=== PATIENT | female | born 1970 | race Caucasian/White ===

== ENCOUNTER 2019-09-22 07:51 | Outpatient (CLI) | payer MEDICAID, SELFPAY ==
--- NOTE | 2019-09-22 08:30 | NMCV_ITS ---
NM MIBI/MIBI Stress/Rest [id number] Phyllis Chopra Age: 48 Gender: F : 1970 Exam Date: 09/22/2019 09:28 Ordering Phys: Milad Chan DO Technologist: CHARLA Miller Exam Location: [facility] Indications: Chest Pain STRESS TEST Please see separate stress test report in [facility] for full findings IMAGE PROTOCOL Rest/Stress 1 Lexiscan Day Radiopharmaceutical Dose (mCi) Administration Site Administered by Rest: Tc-99m 10.4 IV CHARLA Miller Sestamibi Stress:Tc-99m 31.9 IV CHARLA Miller Sestamibi Rest: 22-Sep-2019 Discovery 630 Stress: 22-Sep-2019 Discovery 630 0.4mg Lexiscan. Images obtained in supine and prone position: however there was far to much motion in the images to even correct. 46C chest wall. SPECT RESULTS Technical Quality: Good Raw Data Analysis: Normal, Soft tissue attenuation Image Corrections: No attenuation or motion correction applied Summed Stress Score: 0 Summed Rest Score: 0 Summed Difference Score: 0 PERFUSION FINDINGS SPECT images demonstrate homogeneous tracer distribution throughout the myocardium. FUNCTIONAL RESULTS (calculated via Gated SPECT) Stress Image LV EF (%): 63 Stress EDV (mL):119 TID: 1.07 Stress ESV (mL):44 Rest Image LV EF (%): 63 FUNCTIONAL FINDINGS: There is normal left ventricular systolic function. IMPRESSIONS Myocardial perfusion imaging is normal and low probability for obstructive coronary artery disease. EKG segment will be documented separately. Galileo Blue MD (Electronically Signed) Final Date: 22 September 2019 17:06 S
--- NOTE | 2019-09-22 08:30 | ECG_ITS ---
NAME OF STUDY: LEXISCAN SESTAMIBI STRESS TEST INDICATION: Chest Pain PROCEDURE: At the baseline, the blood pressure was 101/72 mmHg with a heart rate of 72 bpm and oxygen saturation 98%. The electrocardiogram showed sinus rhythm, leftward axis. Low QRS voltage. Nonspecific ST changes. The Lexiscan was infused over a period of 20 seconds. A total of 0.4 milligrams of Lexiscan was infused. The stress phase was continued for a total of 5 minutes. Heart rate at the end of the stress phase was 91 bpm with a blood pressure 113/89 mmHg and oxygen saturation of 97%. The EKG at the peak infusion revealed sinus rhythm with no specific ST-T wave changes. Sestamibi was injected 20 seconds after the Lexiscan infusion. Blood pressure at the end of the recovery phase was 103/72 mmHg, oxygen saturation 97% with a heart rate of 91 beats per minute. CONCLUSION: 1. No significant EKG changes with the LexiScan infusion. 2. No LexiScan induced chest pain or cardiac arrhythmia. 3. Normal blood pressure and heart rate response. 4. Sestamibi/sestamibi perfusion scan pending; see separate report. Electronically Signed On 09-23-2019 9:31:22 TRANSFORMATION SPECIALIST by Shivani Matute M.D. [id number]
[2019-09-22 08:50] VITALS: BMI 37.9
[2019-09-22] MEDS: regadenoson 0.4 Mg/5 ml Syringe IVP (11:03)
[2019-09-22 11:29] VITALS: BP 103/72; PULSE 94
== END 2019-09-22 07:52 | disposition home or self-care (01) ==
LOC: CDL 07:54
PROVIDERS: Family Provider Nurse Practitioner; PCP Nurse Practitioner; Visit Provider Family Medicine
DX: R07.89 Other chest pain (principal)
CPT/HCPCS: 78452; 93017; A9500; J2785

== ENCOUNTER → 2019-09-28 10:01 | Outpatient (BNVA) | payer MEDICAID, SELFPAY | PROVIDERS: Family Provider Nurse Practitioner; PCP Nurse Practitioner; Visit Provider Otolaryngology | DX: J35.01 Chronic tonsillitis (principal); R13.10 Dysphagia, unspecified; F17.210 Nicotine dependence, cigarettes, uncomplicated | CPT/HCPCS: 99214 ==

== ENCOUNTER 2019-10-28 14:33 | Emergency (ER) | payer MEDICAID, SELFPAY ==
[2019-10-28 14:36] VITALS: BP 133/104; PULSE 100; RESP 16; TEMP 36.3; O2SAT 97; BMI 39.0
--- NOTE | 2019-10-28 15:14 | ED_ITS ---
Entered by Ellis Philip, acting as scribe for Milad Chan DO Oct 28, 2019 14:33 HPI - General Adult General: Chief complaint: General Medical Stated complaint: FB IN THROAT Time Seen by Provider: 10/28/19 15:16 History of Present Illness: HPI narrative: 48 yo female presents with FB in throat. Pt states that she has drank water and milk, she was able to get that down but slowly. Pt states that she has nausea but can't vomit. Pt states that she ate a piece of potato and it got stuck. Patient reports she previously had bronchoscopy and EGD done by Dr. Nicole. Reviewing her old chart she did indeed have these done he attempted to do a dilation of the distal esophagus but definitely it appears in the note it was unsuccessful. She has been maintained on a PPI. She did have some erosions her biopsy evidently were negative. She is continue to take the omeprazole she was previously prescribed. She is able to drink and swallow fluids although they feel like they get stuck but she is not actually had any vomiting. She is able to swallow secretions without any difficulty. Denies hematemesis or coffee-ground emesis. MD complaint: FB in throat Associated symptoms: Reports nausea; Deny chest pain, dyspnea, malaise, rash or vomiting Review of Systems Const: Denies: fever, chills, body aches, change in appetite, fatigue or malaise ENMT: Reports: throat pain and painful swallowing; Denies: ear pain, nasal discharge or nasal congestion Card: Denies: chest pain, edema, shortness of breath on exertion or shortness of breath when lying down Resp: Denies: shortness of breath, productive cough or non-productive cough GI: Reports: nausea; Denies: abdominal pain, vomiting, vomiting blood, coffee grounds in vomit, diarrhea, constipation, bloating, blood in stool or black tarry stool : Denies: flank pain, difficulty urinating, painful urination, urinary frequency or urinary urgency Skin/Breast: Denies: rash or itching PFS ED PFSH: Medical History (Updated 10/28/19 @ 16:46 by Milad Chan DO) Diabetes mellitus, type II (Acute) Surgical History (Updated 10/28/19 @ 15:41 by Ellis Philip) H/O tubal ligation (Acute) H/O: hysterectomy (Acute) History of delivery (Acute) Social History Smoking and tobacco status: current every day smoker cigarettes Packs smoked per day: 0.5 (PPD) Quit status (tobacco): not considering quitting Alcohol intake: never Current occupational status: unemployed Physical Exam Const: COMMON NORMALS: no apparent distress GENERAL APPEARANCE: cooperative and comfortable ORIENTATION/CONSCIOUSNESS: Yes awake, Yes oriented to person, Yes oriented to place and Yes oriented to time HENMT: COMMON NORMALS: normocephalic, head/scalp atraumatic, hearing grossly normal bilaterally, external ears normal, EAC's normal, TM's normal bilaterally, nasal mucous membranes and turbinates normal, moist oral mucous membranes and oropharynx normal HEAD & SCALP: normocephalic and atraumatic NOSE: nasal mucous membranes and turbinates normal EXTERNAL EAR: Yes external ears normal EXTERNAL AUDITORY CANAL: EAC's normal TYMPANIC MEMBRANE: TM's normal bilaterally Eye: COMMON NORMALS: PERRL, EOMs intact bilaterally, conjunctivae normal and no scleral icterus CONJUNCTIVA: Yes conjunctivae normal PUPIL: Yes PERRL Neck/C-Spine: COMMON NORMALS: full ROM, no lymphadenopathy, supple and no JVD Lymph: LYMPHATIC: no lymphadenopathy noted and no lymphedema noted Resp: COMMON NORMALS: normal respiratory effort, no retractions, no use of accessory muscles and clear to auscultation bilaterally AUSCULTATION: clear to auscultation bilaterally Cardio: COMMON NORMALS: no JVD, regular rate, regular rhythm and no murmurs RATE: regular rate RHYTHM: regular rhythm GI: COMMON NORMALS: soft to palpation and no hepatosplenomegaly AUSCULTATION: Yes normoactive bowel sounds PALPATION: Yes soft, No tender, No guarding and Yes no hepatosplenomegaly Extremity: COMMON NORMALS: normal to inspection, normal capillary refill, no clubbing, cyanosis or edema, no calf tenderness and no pedal edema Neuro: SENSORIUM/ORIENTATION: Yes oriented to person, Yes oriented to place and Yes oriented to time Skin: COMMON NORMALS: no rashes or lesions noted GENERAL SKIN EXAM: no rashes or lesions noted Course ED course: Patient had no difficulty while in the emergency room was swallowing secretions or breathing we did give a milligram of glucagon without any significant relief contact Dr. Nicole he recommends changing to a different PPI ensuring that she continue on it and follow-up with him. She is not having any further problems with swallowing I think some is probably just a globus sensation from stretching from the large food bolus or may be some irritation of the distal esophagus as was seen previously an EGD that may exacerbated recommends liquid to soft diet until she follows up with Dr. Nicole. Vital Signs: Vital signs: Vital Signs Temperature 97.4 F L 10/28/19 14:36 Pulse Rate 90 10/28/19 17:08 Respiratory Rate 20 H 10/28/19 17:08 Blood Pressure 129/98 10/28/19 17:08 Pulse Oximetry 95 10/28/19 17:08 MDM - General Adult Lab Data: Labs: Lab Results 10/28/19 10/28/19 Range/Units 15:34 15:34 WBC 8.3 (4.0-10.0) 10^3/ uL RBC 5.08 (4.1-5.3) 10^6/u L Hgb 12.8 (11.5-15.3) g/dL Hct 41.0 (37.0-47.0) % MCV 80.7 L (81-99) fL MCH 25.2 L (28.0-34.0) pg MCHC 31.2 (30.0-36.0) g/dL RDW 15.5 H (12.1-15.1) % Plt Count 305 (130-400) 10^3/c mm MPV 9.6 (7.4-10.4) fL Neut % (Auto) 61.2 % Lymph % (Auto) 28.4 % Stone % (Auto) 6.6 % Eos % (Auto) 2.6 % Baso % (Auto) 0.6 % Neut # (Auto) 5.1 (1.8-7.7) 10^3/u L Lymph # (Auto) 2.4 (0.8-4.8) 10^3/u L Stone # (Auto) 0.6 (0.2-0.9) 10^3/u L Eos # (Auto) 0.2 (0.0-0.8) 10^3/u L Baso # (Auto) 0.1 (0.0-0.1) 10^3/u L Nucleated RBC % (a uto) 0 % Nucleated RBCs # 0.0 /100WBC Sodium 137 (136-145) mmol/L Potassium 3.9 (3.5-5.1) mmol/L Chloride 101 (98-107) mmol/L Carbon Dioxide 23 (22-29) mmol/L Anion Gap 16.9 (5-19) BUN 12 (6-20) mg/dL Creatinine 0.8 (0.5-0.9) mg/dL GFR Calculation 75.9 L (90-130) mL/min Glucose 161 H (65-115) mg/dL Calcium 10.0 (8.5-10.5) mg/dL Total Bilirubin 0.3 (0.15-1.2) mg/dL AST 18 (0-32) U/L ALT 15 (0-33) U/L Alkaline Phosphata se 129 H (35-105) IU/L Total Protein 7.6 (6.6-8.7) g/dL Albumin 4.6 (3.5-5.2) g/dL Globulin 3.0 (1.3-4.6) g/dL Discharge Plan Discharge Patient Disposition: Home, Self-Care Clinical Impression: Chronic GERD, Dysphagia Condition: Stable Prescriptions: New pantoprazole 40 mg tablet,delayed release (DR/EC) 40 mg PO DAILY 42 Days RF: 0 Discontinued omeprazole 20 mg capsule,delayed release(DR/EC) 20 mg PO ONCE RF: 0 No Action aspirin [Adult Aspirin Regimen] 81 mg tablet,delayed release (DR/EC) 81 mg PO ONCE RF: 0 Zyrtec 10 mg capsule 10 mg PO DAILY RF: 0 metoprolol succinate 100 mg capsule,sprinkle,ER 24hr 100 mg PO Q24H RF: 0 lisinopril 20 mg tablet 20 mg PO BID RF: 0 hydrochlorothiazide 12.5 mg tablet 12.5 mg PO QAM PRNRF: 0 albuterol sulfate [ProAir HFA] 90 mcg/actuation HFA aerosol inhaler 2 puff INHALATION Q6H PRNRF: 0 diphenhydramine HCl [Benadryl Allergy] 25 mg tablet 25 mg PO Q6H PRNRF: 0 Referrals: Finesse Nicole MD [Physician] - (call for follow-up ) Discharge Diet: Soft Mechanical Discharge Activity: Resume usual activity Discharge Date/Time: 10/28/19 17:11 Coding Level of Care Code ED Utilities Equipment Repairer for Chg Fwd Exam Problem Focused The documentation recorded by the Cedrick watson Kialy, accurately reflects the service I personally performed and the decisions made by Dustin vickers Curtis L, DO Oct 28, 2019 14:33
--- NOTE | 2019-10-28 15:58 | XR_ITS ---
WS: [id number] PORTABLE CHEST HISTORY: chest pain COMPARISON: 09/03/2019 Moderate pulmonary hyperexpansion. No pneumonia. Normal vasculature. No pleural effusion or pneumotho rax. Cardiac size: Normal. Mediastinum/Aorta: Normal mediastinum. No osseous abnormality seen. XR/XR chest 1V portable [id number] IMPRESSION: Mild chronic emphysema. No pneumonia.
[2019-10-28 16:04] LABS: Basophils # 0.1 10^3/uL (0.0-0.1); Basophils % 0.6 %; Eosinophils # 0.2 10^3/uL (0.0-0.8); Eosinophils % 2.6 %; Hemoglobin 12.8 g/dL (11.5-15.3); Lymphocytes # 2.4 10^3/uL (0.8-4.8); Lymphocytes % 28.4 %; Mean Corpuscular HGB Conc 31.2 g/dL (30.0-36.0); Mean Corpuscular Hemoglobin 25.2 pg (28.0-34.0); Mean Corpuscular Volume 80.7 fL (81-99); Mean Platelet Volume 9.6 fL (7.4-10.4); Monocytes # 0.6 10^3/uL (0.2-0.9); Monocytes % 6.6 %; Neutrophils # 5.1 10^3/uL (1.8-7.7); Neutrophils % 61.2 %; Nucleated Red Blood Cells % 0 %; Platelet Count 305 10^3/cmm (130-400); Red Blood Count 5.08 10^6/uL (4.1-5.3); Red Cell Distribution Width 15.5 % (12.1-15.1); White Blood Count 8.3 10^3/uL (4.0-10.0)
[2019-10-28 16:16] LABS: Alanine Aminotransferase 15 U/L (0-33); Albumin Level 4.6 g/dL (3.5-5.2); Alkaline Phosphatase 129 IU/L (35-105); Anion Gap 16.9 (5-19); Aspartate Amino Transferase 18 U/L (0-32); Blood Urea Nitrogen 12 mg/dL (6-20); Carbon Dioxide 23 mmol/L (22-29); Chloride 101 mmol/L (98-107); Glomerular Filtration Rate 75.9 mL/min (90-130); Glucose 161 mg/dL (65-115); Potassium 3.9 mmol/L (3.5-5.1); Sodium 137 mmol/L (136-145); Total Bilirubin 0.3 mg/dL (0.15-1.2); Total Protein 7.6 g/dL (6.6-8.7)
[2019-10-28 17:08] VITALS: BP 129/98; PULSE 90; RESP 20; O2SAT 95
--- NOTE | 2019-10-29 10:17 | DCPLANNER ---
manager dish had message to schedule a follow up appointment for patient with Dr. Nicole, ENT. manager dish called the office of Dr. Nicole, spoke with Karen, a follow up appointment is scheduled for Friday, November 03, 2019 at 11:[address] Nicole. Clinic will call patient with appointment information.
--- NOTE | 2019-11-05 15:13 | DCPLANNER ---
Patient did attend appointment scheduled for 11.03.[address] Nicole.
== END 2019-10-28 17:11 | disposition home or self-care (01) ==
PROVIDERS: Emergency Provider Family Medicine; Family Provider Nurse Practitioner; PCP Nurse Practitioner
DX: K21.9 Gastro-esophageal reflux disease without esophagitis (principal); R13.10 Dysphagia, unspecified; E11.9 Type 2 diabetes mellitus without complications; F17.210 Nicotine dependence, cigarettes, uncomplicated
CPT/HCPCS: 71045; 80053; 85025; 96372; 99282; 99283; J1610

== ENCOUNTER 2019-10-31 16:49 | Emergency (ER) | payer MEDICAID, SELFPAY ==
[2019-10-31 16:50] VITALS: BP 148/89; PULSE 75; RESP 20; BMI 39.0
--- NOTE | 2019-10-31 16:56 | ECG_ITS ---
Measurements Intervals [place] Rate: 74 P: 15 [place]: 152 QRS: -36 QRSD: 96 T: -4 QT: 384 QTc: 426 SINUS RHYTHM LEFT AXIS DEVIATION [QRS AXIS < -30] LOW QRS VOLTAGE IN PRECORDIAL LEADS [QRS DEFLECTION < 1.0 mV IN CHEST LEADS] Compared to ECG 09/03/2019 11:47:43 ST (T wave) deviation no longer present Electronically Signed On 11-01-2019 11:16:37 DATA ANALYST REPORT WRITER by Haile Mattson M.D. [email or web address]
--- NOTE | 2019-10-31 16:56 | ED_ITS ---
Entered by Lynne Miller, acting as scribe for Documented by User: Milad Chan DO 11/01/19 07:08 HPI - SOB/Dyspnea General: Chief Complaint: Shortness of Breath/Dyspnea Stated Complaint: SOB Time Seen by Provider: 10/31/19 16:56 Source: patient and EMS Mode of arrival: EMS Limitations: no limitations History of Present Illness: HPI Narrative: 48 yo female presents with increased shortness of breath. pt states that she is having a hard time breathing. pt states she is out of medications. pt denies any other symptoms at this time. I feel the patient a couple of days ago in the emergency room here with a complaint of a globus-like sensation and something was stuck in her throat. She had previously seen Dr. Nicole and had a bronchoscopy and EGD for the similar symptoms he had felt that it was likely just a globus sensation and had a's make sure she was on a PPI. She is supposed to follow-up with him. She sta amee that since that visit she has had chest pain. States she feels like her bronchial tubes are filling up whenever she lays down. She denies any fever sweats or chills. She refers to the chest pains being central with no significant radiation. She does not have a productive cough. MD elicited complaint: shortness of breath Context: occurred during exertion Timing: constant Severity: moderate Exacerbating factors: exertion, movement and deep breaths Relieving factors: nothing Associated symptoms: Reports no associated symptoms and chest congestion; Deny abdominal pain, chest pain, fever(s), hemoptysis, nausea, orthopnea or vomiting Treatment prior to arrival: none Review of Systems General: Reports: 10 or more systems reviewed and unremarkable except in HPI and below Const: Denies: fever, chills, body aches, change in appetite, fatigue or malaise ENMT: Denies: throat pain, ear pain, nasal discharge or nasal congestion Card: Denies: chest pain, edema, shortness of breath on exertion or shortness of breath when lying down Resp: Reports: shortness of breath, non-productive cough, wheezing and chest congestion; Denies: coughing up blood GI: Denies: abdominal pain, nausea, vomiting, vomiting blood, coffee grounds in vomit, diarrhea, constipation, bloating, blood in stool or black tarry stool : Denies: flank pain, difficulty urinating, painful urination, urinary frequency or urinary urgency Skin/Breast: Denies: rash or itching PFSH ED PFSH: Medical History (Updated 11/01/19 @ 01:02 by Gigi Zepeda MD) Anxiety and depression Chondromalacia, right knee COPD (chronic obstructive pulmonary disease) Dilated cardiomyopathy Left flank tenderness Lumbar pain on palpation Lumbar paraspinal muscle spasm Memory change Osteoarthritis Peptic ulcer SVT (supraventricular tachycardia) Surgical History (Updated 11/01/19 @ 01:02 by Gigi Zepeda MD) H/O arthroscopic knee surgery H/O tubal ligation H/O: hysterectomy History of delivery Social History Smoking and tobacco status: current every day smoker cigarettes Packs smoked per day: 0.5 (PPD) Quit status (tobacco): not considering quitting Alcohol intake: never Current occupational status: unemployed Physical Exam Const: COMMON NORMALS: no apparent distress GENERAL APPEARANCE: cooperative and comfortable ORIENTATION/CONSCIOUSNESS: Yes awake, Yes oriented to person, Yes oriented to place and Yes oriented to time HENMT: COMMON NORMALS: normocephalic, head/scalp atraumatic, hearing grossly normal bilaterally, external ears normal, EAC's normal, TM's normal bilaterally, nasal mucous membranes and turbinates normal, moist oral mucous membranes and oropharynx normal HEAD & SCALP: normocephalic and atraumatic NOSE: nasal mucous membranes and turbinates normal EXTERNAL EAR: Yes external ears normal EXTERNAL AUDITORY CANAL: EAC's normal TYMPANIC MEMBRANE: TM's normal bilaterally Eye: COMMON NORMALS: PERRL, EOMs intact bilaterally, conjunctivae normal and no scleral icterus CONJUNCTIVA: Yes conjunctivae normal PUPIL: Yes PERRL Neck/C-Spine: COMMON NORMALS: full ROM, no lymphadenopathy, supple and no JVD Lymph: LYMPHATIC: no lymphadenopathy noted and no lymphedema noted Cardio: COMMON NORMALS: no JVD, regular rate, regular rhythm and no murmurs RATE: regular rate RHYTHM: regular rhythm GI: COMMON NORMALS: soft to palpation and no hepatosplenomegaly AUSCULTATION: Yes normoactive bowel sounds PALPATION: Yes soft, No tender, No guarding and Yes no hepatosplenomegaly Extremity: COMMON NORMALS: normal to inspection, normal capillary refill, no clubbing, cyanosis or edema, no calf tenderness and no pedal edema Neuro: SENSORIUM/ORIENTATION: Yes oriented to person, Yes oriented to place and Yes oriented to time Skin: COMMON NORMALS: no rashes or lesions noted GENERAL SKIN EXAM: no rashes or lesions noted Course ED course: Patient was hyperventilating when I first encountered her. ABG showed very mild respiratory alkalosis however with drawn after she been here for some time. Chest x-ray is unremarkable given her complaint of chest pain a troponin is pending EKG did not show anything acute patient care was turned over to Dr. Mora at change of shift. Vital Signs: Vital signs: Vital Signs Temperature 98.1 F 10/31/19 20:08 Pulse Rate 73 10/31/19 20:08 Respiratory Rate 16 10/31/19 20:08 Blood Pressure 101/67 10/31/19 20:08 Pulse Oximetry 97 10/31/19 20:08 MDM - SOB/Dyspnea Lab Data: Labs: Lab Results 10/31/19 10/31/19 10/31/19 Range/Units 17:05 17:05 17:05 WBC 8.4 (4.0-10.0) 10^3/ uL RBC 4.79 (4.1-5.3) 10^6/u L Hgb 12.1 (11.5-15.3) g/dL Hct 38.8 (37.0-47.0) % MCV 81.0 (81-99) fL MCH 25.3 L (28.0-34.0) pg MCHC 31.2 (30.0-36.0) g/dL RDW 15.8 H (12.1-15.1) % Plt Count 305 (130-400) 10^3/c mm MPV 9.5 (7.4-10.4) fL Neut % (Auto) 55.0 % Lymph % (Auto) 35.1 % Starr % (Auto) 6.6 % Eos % (Auto) 2.3 % Baso % (Auto) 0.5 % Neut # (Auto) 4.6 (1.8-7.7) 10^3/u L Lymph # (Auto) 2.9 (0.8-4.8) 10^3/u L Starr # (Auto) 0.6 (0.2-0.9) 10^3/u L Eos # (Auto) 0.2 (0.0-0.8) 10^3/u L Baso # (Auto) 0.0 (0.0-0.1) 10^3/u L Nucleated RBC % (a uto) 0 % Nucleated RBCs # 0.0 /100WBC Specimen Type Sample Site ABG pH (7.35-7.45) ABG pCO2 (35-45) mmHg ABG pO2 (80.0-100.0) mmH g ABG HCO3 (22-26) mmol/L ABG O2 Saturation ABG Base Excess (-2.0-2.0) mmol/ L Power Test A-a O2 Gradient (5-10) mmHg Hematocrit (37-47) % Hgb O2 Saturation (95-100) % Carboxyhemoglobin (0.4-20.1) %THgb Methemoglobin (0.4-1.5) % Total Hemoglobin (12-16) g/dL Ionized Calcium (1.1-1.4) mmol/L FiO2 % Sanitation Engineer ID Sodium 138 (136-145) mmol/L Potassium 4.4 (3.5-5.1) mmol/L Chloride 105 (98-107) mmol/L Carbon Dioxide 20 L (22-29) mmol/L Anion Gap 17.4 (5-19) BUN 11 (6-20) mg/dL Creatinine 0.9 (0.5-0.9) mg/dL GFR Calculation 66.3 L (90-130) mL/min Glucose 118 H (65-115) mg/dL Calcium 9.8 (8.5-10.5) mg/dL Total Bilirubin 0.3 (0.15-1.2) mg/dL AST 24 (0-32) U/L ALT 16 (0-33) U/L Alkaline Phosphata se 123 H (35-105) IU/L Troponin T Baselin e 15 H (0-10) ng/mL Troponin T [address] [place] (0-10) ng/mL Delta Troponin T (0-10) ABS# NT-Pro-B Natriuret Pep 54 (0-125) pg/mL Total Protein 7.2 (6.6-8.7) g/dL Albumin 4.3 (3.5-5.2) g/dL Globulin 2.9 (1.3-4.6) g/dL 10/31/19 10/31/19 Range/Units 17:15 19:05 WBC (4.0-10.0) 10^3/ uL RBC (4.1-5.3) 10^6/u L Hgb (11.5-15.3) g/dL Hct (37.0-47.0) % MCV (81-99) fL MCH (28.0-34.0) pg MCHC (30.0-36.0) g/dL RDW (12.1-15.1) % Plt Count (130-400) 10^3/c mm MPV (7.4-10.4) fL Neut % (Auto) % Lymph % (Auto) % Starr % (Auto) % Eos % (Auto) % Baso % (Auto) % Neut # (Auto) (1.8-7.7) 10^3/u L Lymph # (Auto) (0.8-4.8) 10^3/u L Starr # (Auto) (0.2-0.9) 10^3/u L Eos # (Auto) (0.0-0.8) 10^3/u L Baso # (Auto) (0.0-0.1) 10^3/u L Nucleated RBC % (a uto) % Nucleated RBCs # /100WBC Specimen Type Arterial Sample Site Brachial, left ABG pH 7.41 (7.35-7.45) ABG pCO2 30.8 L (35-45) mmHg ABG pO2 78.4 L (80.0-100.0) mmH g ABG HCO3 19.3 L (22-26) mmol/L ABG O2 Saturation 96.9 ABG Base Excess -4.4 L (-2.0-2.0) mmol/ L Power Test Pos A-a O2 Gradient 31.2 H (5-10) mmHg Hematocrit 37.5 (37-47) % Hgb O2 Saturation 91.3 L (95-100) % Carboxyhemoglobin 4.8 (0.4-20.1) %THgb Methemoglobin 0.9 (0.4-1.5) % Total Hemoglobin 12.2 (12-16) g/dL Ionized Calcium 1.3 (1.1-1.4) mmol/L FiO2 21.0 % Sanitation Engineer ID bd Sodium 140.0 (136-145) mmol/L Potassium 4.1 (3.5-5.1) mmol/L Chloride (98-107) mmol/L Carbon Dioxide (22-29) mmol/L Anion Gap (5-19) BUN (6-20) mg/dL Creatinine (0.5-0.9) mg/dL GFR Calculation (90-130) mL/min Glucose 117.0 H (65-115) mg/dL Calcium (8.5-10.5) mg/dL Total Bilirubin (0.15-1.2) mg/dL AST (0-32) U/L ALT (0-33) U/L Alkaline Phosphata se (35-105) IU/L Troponin T Baselin e (0-10) ng/mL Troponin T [address] [place] 17.47 H (0-10) ng/mL Delta Troponin T 2.47 (0-10) ABS# NT-Pro-B Natriuret Pep (0-125) pg/mL Total Protein (6.6-8.7) g/dL Albumin (3.5-5.2) g/dL Globulin (1.3-4.6) g/dL Discharge Plan Discharge Patient Disposition: Home, Self-Care Clinical Impression: Acute bronchitis with bronchospasm Condition: Stable Prescriptions: New doxycycline hyclate 100 mg capsule 100 mg PO BID 10 Days Qty: 20 RF: 0 prednisone 10 mg tablets,dose pack See Rx Instructions .ROUTE .COMPLEX Qty: 21 RF: 0 albuterol sulfate 90 mcg/actuation HFA aerosol inhaler 2 inh INHALATION Q4H PRN (Reason: shortness of breath or wheezing) Qty: 6.7 RF: 0 No Action aspirin [Adult Aspirin Regimen] 81 mg tablet,delayed release (DR/EC) 81 mg PO ONCE RF: 0 Zyrtec 10 mg capsule 10 mg PO DAILY RF: 0 metoprolol succinate 100 mg capsule,sprinkle,ER 24hr 100 mg PO Q24H RF: 0 lisinopril 20 mg tablet 20 mg PO BID RF: 0 hydrochlorothiazide 12.5 mg tablet 12.5 mg PO QAM PRN (Reason: SWELLING) RF: 0 diphenhydramine HCl [Benadryl Allergy] 25 mg tablet 25 mg PO Q6H PRN (Reason: ALLERGIES) RF: 0 pantoprazole 40 mg tablet,delayed release (DR/EC) 40 mg PO DAILY 42 Days RF: 0 acetaminophen [Tylenol] 325 mg Tablet 325 mg PO QID PRN (Reason: Pain) RF: 0 ranitidine HCl 150 mg Tablet 150 mg PO BID RF: 0 Discharge Orders: Discharge Order (Routine); Ordered 10/31/19 Ordered By: Nohemi Faustin Referrals: Brian Mary, PROGRAM FACILITATOR-C [Primary Care Provider] - 1-3 days Discharge Diet: Usual diet Discharge Activity: Increase activity as tolerated Patient Instructions: Chest Pain (ED), Acute Bronchitis (ED), Bronchospasm (ED) Activity Restrictions/Additional Instructions: Please return to the ER immediately for any of the signs or symptoms listed on your discharge instruction sheets, worsening/changing of your symptoms, you are not getting better as quickly as expected, or for ANY other cause or concerns. I have recommended and offered to admit you to the hospital for further testing of your heart but you have refused. A underlying heart problem still could be a cause for your symptoms, of course any heart problem can be life-threatening so if you have any more symptoms or you simply change your mind you are more than welcome to return to the ER for recheck and further evaluation and care. Stand Alone Forms: Work/School Release Discharge Date/Time: 10/31/19 20:14 Sign Out Sign Out Data: Patient Sign Out occurred on 10/31/19 at 18:54. Patient's care was discussed, and care was transferred from Milad Chan DO to Nohemi Faustin. Sign Out Comment: hyperventilation atypical chest pain, Last updated by Milad Chan DO at 10/31/19 18:09 Coding Level of Care Code ED Manager Document Control for Chg Fwd Exam Detailed Documented by User: Nohemi Faustin 10/31/19 19:52 HPI - SOB/Dyspnea General: Chief Complaint: Shortness of Breath/Dyspnea Stated Complaint: SOB Time Seen by Provider: 10/31/19 16:56 PFSH ED PFSH: Medical History (Updated 11/01/19 @ 01:02 by Gigi Zepeda MD) Anxiety and depression Chondromalacia, right knee COPD (chronic obstructive pulmonary disease) Dilated cardiomyopathy Left flank tenderness Lumbar pain on palpation Lumbar paraspinal muscle spasm Memory change Osteoarthritis Peptic ulcer SVT (supraventricular tachycardia) Surgical History (Updated 11/01/19 @ 01:02 by Gigi Zepeda MD) H/O arthroscopic knee surgery H/O tubal ligation H/O: hysterectomy History of delivery Social History Smoking and tobacco status: current every day smoker cigarettes Packs smoked per day: 0.5 (PPD) Quit status (tobacco): not considering quitting Alcohol intake: never Current occupational status: unemployed Course Vital Signs: Vital signs: Vital Signs Temperature 98.1 F 10/31/19 20:08 Pulse Rate 73 10/31/19 20:08 Respiratory Rate 16 10/31/19 20:08 Blood Pressure 101/67 10/31/19 20:08 Pulse Oximetry 97 10/31/19 20:08 MDM - SOB/Dyspnea MDM Narrative: Medical decision making narrative: 1800 -care turned over to me, Dr. Nohemi Faustin at change of shift from Dr. Chan. Please see his portion of this note for his history, physical exam and medical decision-making notes. At the time of my exam the patient has stable vital signs and occasional rhonchus lung sounds but her heart is regular with no abdominal pain. Her mentation is clear normal. The patient states she has had a dull chest disc omfort that is been constant for 2 days and unrelenting. Her EKG is normal and her first troponin is close to normal. Clinically it appears that she has a bronchitis. Her chest x-ray is clear and her labs are unremarkable up to this point. We will go ahead and get 1 more troponin one more EKG but she does not think this is her heart but does agree to stay for this but wants to go home with antibiotics. 1949 -the patient now states her chest pain is gone. Because of this change I have recommended and offered to keep her in the hospital for further care including stress testing and possible cardiac consult but she refuses. She states that she recently had a stress test which was normal. She states he just feels like her bronchial tubes are clogging up with mucus and she needs somethi ng for the inflammation in her wheezing. Clinically her symptoms appear much more like bronchitis with bronchospasm, her physical exam is consistent with this and her history is suggesting this more so than cardiac type of pain. Nonetheless she has history of arrhythmias, hypertension, or hyperlipidemia so I have recommended and offered for her to stay in the hospital but she refuses. She understands that of course any heart problem can be life-threatening but she does agree to return should she change her mind. Lab Data: Labs: Lab Results 10/31/19 10/31/19 10/31/19 Range/Units 17:05 17:05 17:05 WBC 8.4 (4.0-10.0) 10^3/ uL RBC 4.79 (4.1-5.3) 10^6/u L Hgb 12.1 (11.5-15.3) g/dL Hct 38.8 (37.0-47.0) % MCV 81.0 (81-99) fL MCH 25.3 L (28.0-34.0) pg MCHC 31.2 (30.0-36.0) g/dL RDW 15.8 H (12.1-15.1) % Plt Count 305 (130-400) 10^3/c mm MPV 9.5 (7.4-10.4) fL Neut % (Auto) 55.0 % Lymph % (Auto) 35.1 % Starr % (Auto) 6.6 % Eos % (Auto) 2.3 % Baso % (Auto) 0.5 % Neut # (Auto) 4.6 (1.8-7.7) 10^3/u L Lymph # (Auto) 2.9 (0.8-4.8) 10^3/u L Starr # (Auto) 0.6 (0.2-0.9) 10^3/u L Eos # (Auto) 0.2 (0.0-0.8) 10^3/u L Baso # (Auto) 0.0 (0.0-0.1) 10^3/u L Nucleated RBC % (a uto) 0 % Nucleated RBCs # 0.0 /100WBC Specimen Type Sample Site ABG pH (7.35-7.45) ABG pCO2 (35-45) mmHg ABG pO2 (80.0-100.0) mmH g ABG HCO3 (22-26) mmol/L ABG O2 Saturation ABG Base Excess (-2.0-2.0) mmol/ L Power Test A-a O2 Gradient (5-10) mmHg Hematocrit (37-47) % Hgb O2 Saturation (95-100) % Carboxyhemoglobin (0.4-20.1) %THgb Methemoglobin (0.4-1.5) % Total Hemoglobin (12-16) g/dL Ionized Calcium (1.1-1.4) mmol/L FiO2 % Sanitation Engineer ID Sodium 138 (136-145) mmol/L Potassium 4.4 (3.5-5.1) mmol/L Chloride 105 (98-107) mmol/L Carbon Dioxide 20 L (22-29) mmol/L Anion Gap 17.4 (5-19) BUN 11 (6-20) mg/dL Creatinine 0.9 (0.5-0.9) mg/dL GFR Calculation 66.3 L (90-130) mL/min Glucose 118 H (65-115) mg/dL Calcium 9.8 (8.5-10.5) mg/dL Total Bilirubin 0.3 (0.15-1.2) mg/dL AST 24 (0-32) U/L ALT 16 (0-33) U/L Alkaline Phosphata se 123 H (35-105) IU/L Troponin T Baselin e 15 H (0-10) ng/mL Troponin T [address] [place] (0-10) ng/mL Delta Troponin T (0-10) ABS# NT-Pro-B Natriuret Pep 54 (0-125) pg/mL Total Protein 7.2 (6.6-8.7) g/dL Albumin 4.3 (3.5-5.2) g/dL Globulin 2.9 (1.3-4.6) g/dL 10/31/19 10/31/19 Range/Units 17:15 19:05 WBC (4.0-10.0) 10^3/ uL RBC (4.1-5.3) 10^6/u L Hgb (11.5-15.3) g/dL Hct (37.0-47.0) % MCV (81-99) fL MCH (28.0-34.0) pg MCHC (30.0-36.0) g/dL RDW (12.1-15.1) % Plt Count (130-400) 10^3/c mm MPV (7.4-10.4) fL Neut % (Auto) % Lymph % (Auto) % Starr % (Auto) % Eos % (Auto) % Baso % (Auto) % Neut # (Auto) (1.8-7.7) 10^3/u L Lymph # (Auto) (0.8-4.8) 10^3/u L Starr # (Auto) (0.2-0.9) 10^3/u L Eos # (Auto) (0.0-0.8) 10^3/u L Baso # (Auto) (0.0-0.1) 10^3/u L Nucleated RBC % (a uto) % Nucleated RBCs # /100WBC Specimen Type Arterial Sample Site Brachial, left ABG pH 7.41 (7.35-7.45) ABG pCO2 30.8 L (35-45) mmHg ABG pO2 78.4 L (80.0-100.0) mmH g ABG HCO3 19.3 L (22-26) mmol/L ABG O2 Saturation 96.9 ABG Base Excess -4.4 L (-2.0-2.0) mmol/ L Power Test Pos A-a O2 Gradient 31.2 H (5-10) mmHg Hematocrit 37.5 (37-47) % Hgb O2 Saturation 91.3 L (95-100) % Carboxyhemoglobin 4.8 (0.4-20.1) %THgb Methemoglobin 0.9 (0.4-1.5) % Total Hemoglobin 12.2 (12-16) g/dL Ionized Calcium 1.3 (1.1-1.4) mmol/L FiO2 21.0 % Sanitation Engineer ID bd Sodium 140.0 (136-145) mmol/L Potassium 4.1 (3.5-5.1) mmol/L Chloride (98-107) mmol/L Carbon Dioxide (22-29) mmol/L Anion Gap (5-19) BUN (6-20) mg/dL Creatinine (0.5-0.9) mg/dL GFR Calculation (90-130) mL/min Glucose 117.0 H (65-115) mg/dL Calcium (8.5-10.5) mg/dL Total Bilirubin (0.15-1.2) mg/dL AST (0-32) U/L ALT (0-33) U/L Alkaline Phosphata se (35-105) IU/L Troponin T Baselin e (0-10) ng/mL Troponin T [address] [place] 17.47 H (0-10) ng/mL Delta Troponin T 2.47 (0-10) ABS# NT-Pro-B Natriuret Pep (0-125) pg/mL Total Protein (6.6-8.7) g/dL Albumin (3.5-5.2) g/dL Globulin (1.3-4.6) g/dL Imaging Data^: CXR: My impression: No acute cardiopulmonary findings. EKG Data^: EKG 1: EKG Interpretation Date: 10/31/19 EKG interpretation time: 17:04 Interpretation: Normal sinus rhythm at 74 beats a minute, no acute ST-T wave changes, normal EKG. EKG 2: Attestation: I personally reviewed and interpreted this EKG as follows: EKG Interpretation Date: 10/31/19 EKG interpretation time: 19:35 Interpretation: Normal sinus rhythm at 69 beats a minute, no acute ST-T wave changes, normal intervals, no acute abnormalities. Unchanged from previous. Discharge Plan Discharge Patient Disposition: Home, Self-Care Clinical Impression: Acute bronchitis with bronchospasm Condition: Stable Prescriptions: New doxycycline hyclate 100 mg capsule 100 mg PO BID 10 Days Qty: 20 RF: 0 prednisone 10 mg tablets,dose pack See Rx Instructions .ROUTE .COMPLEX Qty: 21 RF: 0 albuterol sulfate 90 mcg/actuation HFA aerosol inhaler 2 inh INHALATION Q4H PRN (Reason: shortness of breath or wheezing) Qty: 6.7 RF: 0 No Action aspirin [Adult Aspirin Regimen] 81 mg tablet,delayed release (DR/EC) 81 mg PO ONCE RF: 0 Zyrtec 10 mg capsule 10 mg PO DAILY RF: 0 metoprolol succinate 100 mg capsule,sprink,ER 24hr 100 mg PO Q24H RF: 0 lisinopril 20 mg tablet 20 mg PO BID RF: 0 hydrochlorothiazide 12.5 mg tablet 12.5 mg PO QAM PRN (Reason: SWELLING) RF: 0 diphenhydramine HCl [Benadryl Allergy] 25 mg tablet 25 mg PO Q6H PRN (Reason: ALLERGIES) RF: 0 pantoprazole 40 mg tablet,delayed release (DR/EC) 40 mg PO DAILY 42 Days RF: 0 acetaminophen [Tylenol] 325 mg Tablet 325 mg PO QID PRN (Reason: Pain) RF: 0 ranitidine HCl 150 mg Tablet 150 mg PO BID RF: 0 Discharge Orders: Discharge Order (Routine); Ordered 10/31/19 Ordered By: Nohemi Faustin Referrals: Brian Mary, PROGRAM FACILITATOR-C [Primary Care Provider] - 1-3 days Discharge Diet: Usual diet Discharge Activity: Increase activity as tolerated Patient Instructions: Chest Pain (ED), Acute Bronchitis (ED), Bronchospasm (ED) Activity Restrictions/Additional Instructions: Please return to the ER immediately for any of the signs or symptoms listed on your discharge instruction sheets, worsening/changing of your symptoms, you are not getting better as quickly as expected, or for ANY other cause or concerns. I have recommended and offered to admit you to the hospital for further testing of your heart but you have refused. A underlying heart problem still could be a cause for your symptoms, of course any heart problem can be life-threatening so if you have any more symptoms or you simply change your mind you are more than welcome to return to the ER for recheck and further evaluation and care. Stand Alone Forms: Work/School Release Discharge Date/Time: 10/31/19 20:14 Sign Out Sign Out Data: Patient Sign Out occurred on 10/31/19 at 18:54. Patient's care was discussed, and care was transferred from Milad Chan DO to Nohemi Faustin. Sign Out Comment: hyperventilation atypical chest pain, Last updated by Milad Chan DO at 10/31/19 18:09 Coding Level of Care Code ED Manager Document Control for Chg Fwd Exam Detailed The documentation recorded by the Paul watson Bridget Annette, accurately reflects the service I personally performed and the decisions made by , Milad Chan DO Oct 31, 2019 16:49
--- NOTE | 2019-10-31 16:57 | XR_ITS ---
WS: [id number] XR chest 1V portable [id number] REASON FOR EXAM: dyspnea/cough FINDINGS: Catheter is seen across the mid chest. The heart is not enlarged. The lung morfin are well aerated. No definite pneumonia, pleural effusion, pulmonary edema, or mass e ffect. XR/XR chest 1V portable [id number] IMPRESSION: Normal appearance of the chest
[2019-10-31] MEDS: LORazepam 2 mg/mL INJ 1 mL 1 MG IVP (17:10)
[2019-10-31 17:12] LABS: Basophils % 0.5 %; Eosinophils # 0.2 10^3/uL (0.0-0.8); Eosinophils % 2.3 %; Hematocrit 38.8 % (37.0-47.0); Hemoglobin 12.1 g/dL (11.5-15.3); Lymphocytes # 2.9 10^3/uL (0.8-4.8); Lymphocytes % 35.1 %; Mean Corpuscular HGB Conc 31.2 g/dL (30.0-36.0); Mean Corpuscular Hemoglobin 25.3 pg (28.0-34.0); Mean Platelet Volume 9.5 fL (7.4-10.4); Monocytes # 0.6 10^3/uL (0.2-0.9); Monocytes % 6.6 %; Neutrophils # 4.6 10^3/uL (1.8-7.7); Nucleated Red Blood Cells % 0 %; Platelet Count 305 10^3/cmm (130-400); Red Blood Count 4.79 10^6/uL (4.1-5.3); Red Cell Distribution Width 15.8 % (12.1-15.1); White Blood Count 8.4 10^3/uL (4.0-10.0)
[2019-10-31 17:30] LABS: ABG PCO2 30.8 mmHg (35-45); ABG PH Result 7.41 (7.35-7.45); Alveolar-Arterial Oxygen Gradi 31.2 mmHg (5-10); Arterial Blood Gas Hematocrit 37.5 % (37-47); Base Excess ABG -4.4 mmol/L (-2.0-2.0); Blood Gas Allen Test Pos; Blood Gas Sample Site Brachial, left; Blood Gas Sample Type Arterial; Carboxyhemoglobin 4.8 %THgb (0.4-20.1); HCO3 ABG 19.3 mmol/L (22-26); HGB O2 Sat 91.3 % (95-100); Ionized Calcium Level - ABG 1.3 mmol/L (1.1-1.4); Methemoglobin 0.9 % (0.4-1.5); Oxygen Saturation ABG 96.9; PO2 ABG 78.4 mmHg (80.0-100.0); Potassium Level - ABG 4.1 mmol/L (3.5-5.0); Total Hemoglobin 12.2 g/dL (12-16)
[2019-10-31 17:37] LABS: Alanine Aminotransferase 16 U/L (0-33); Albumin Level 4.3 g/dL (3.5-5.2); Alkaline Phosphatase 123 IU/L (35-105); Anion Gap 17.4 (5-19); Aspartate Amino Transferase 24 U/L (0-32); Blood Urea Nitrogen 11 mg/dL (6-20); Calcium 9.8 mg/dL (8.5-10.5); Carbon Dioxide 20 mmol/L (22-29); Chloride 105 mmol/L (98-107); Globulin 2.9 g/dL (1.3-4.6); Glomerular Filtration Rate 66.3 mL/min (90-130); Glucose 118 mg/dL (65-115); Potassium 4.4 mmol/L (3.5-5.1); Sodium 138 mmol/L (136-145); Total Bilirubin 0.3 mg/dL (0.15-1.2); Total Protein 7.2 g/dL (6.6-8.7)
--- NOTE | 2019-10-31 18:02 | PC.NURSE ---
Patient to restroom.
[2019-10-31 18:09] LABS: Troponin(5th) Baseline 15 ng/mL (0-10)
--- NOTE | 2019-10-31 18:12 | PC.NURSE ---
sap technical architect to bedside for EKG
[2019-10-31 18:17] LABS: NT Pro B Type Natriuretic Pept 54 pg/mL (0-125)
--- NOTE | 2019-10-31 19:11 | PC.NURSE ---
Introduced self to patient and initiated vital signs. Patient presents A&O x 4. NAD, ABCs intact, MAEW and agreeable to treatment. Respirations are even and unlabored. Pt states that the chief complaint for the ER visit today is due to difficulty in breathing which presented early AM and awakened her from sleep 2x. Pt states that she was also at home after waking up and was unable to catch her breath for a number of hours. Pt also complaining of sternal pain. IV observed in R AC. Pt denies any vision disturbances or lightheadedness. Bed left in lowest position in semi-fowlers with side rails up.Reassured patient of needs and will continue to monitor.
[2019-10-31 19:14] VITALS: BP 107/67; PULSE 79; RESP 18; O2SAT 92
[2019-10-31 19:33] LABS: Troponin 5 2HR 17.47 ng/mL (0-10); Troponin 5 2HR Delta 2.47 ABS# (0-10)
--- NOTE | 2019-10-31 19:45 | ECG_ITS ---
Measurements Intervals [place] Rate: 69 P: 16 MD: 169 QRS: -35 QRSD: 99 T: 5 QT: 406 QTc: 436 SINUS RHYTHM LEFT AXIS DEVIATION [QRS AXIS < -30] LOW QRS VOLTAGE IN PRECORDIAL LEADS [QRS DEFLECTION < 1.0 mV IN CHEST LEADS] Compared to ECG 09/03/2019 11:47:43 ST (T wave) deviation no longer present Electronically Signed On 11-01-2019 11:24:37 LIEUTENANT FIREFIGHTER by Haile Mattson M.D. [email or web address]
[2019-10-31] MEDS: ondansetron 2 mg/ML SDV 2 mL 4 MG IVP (20:00)
[2019-10-31] MEDS: predniSONE 20 mg Tablet 60 MG PO (20:00)
[2019-10-31] MEDS: doxycycline 100 mg Tablet 200 MG PO (20:06)
[2019-10-31 20:08] VITALS: BP 101/67; PULSE 73; RESP 16; TEMP 36.7; O2SAT 97
[2019-11-01 09:29] LABS: Oxygen Device RA
== END 2019-10-31 20:14 | disposition home or self-care (01) ==
PROVIDERS: Family Medicine; Emergency Provider Emergency Medicine; Family Provider Nurse Practitioner; PCP Nurse Practitioner
DX: J44.0 Chronic obstructive pulmonary disease with (acute) lower respiratory infection (principal); J20.9 Acute bronchitis, unspecified; F17.210 Nicotine dependence, cigarettes, uncomplicated
CPT/HCPCS: 36415; 36600; 71045; 80051; 80053; 82810; 83880; 83986; 84484; 85025; 93005; 96374; 96375; 99282; 99284; J2060; J2405; J7512

== ENCOUNTER 2019-10-31 16:49 | Emergency (ER) | payer MEDICAID, SELFPAY | END 2019-10-31 20:14 | disposition home or self-care (01) | LOC: ER 11-10 10:01 | PROVIDERS: Emergency Provider Emergency Medicine; Family Provider Nurse Practitioner; PCP Nurse Practitioner | DX: R07.9 Chest pain, unspecified (principal); E11.65 Type 2 diabetes mellitus with hyperglycemia; I10 Essential (primary) hypertension; I47.1 Supraventricular tachycardia; K27.9 Peptic ulcer, site unspecified, unspecified as acute or chronic, without hemorrhage or perforation; F41.9 Anxiety disorder, unspecified; Z79.82 Long term (current) use of aspirin; Z79.84 Long term (current) use of oral hypoglycemic drugs; F17.210 Nicotine dependence, cigarettes, uncomplicated ==

== ENCOUNTER 2019-10-31 20:24 | Emergency (ER) | payer MEDICAID, SELFPAY | END 2019-11-01 02:18 | disposition still patient (30) | LOC: ER 11-10 10:22 | PROVIDERS: Emergency Provider Emergency Medicine; Family Provider Nurse Practitioner; PCP Nurse Practitioner | DX: R07.9 Chest pain, unspecified (principal); E11.9 Type 2 diabetes mellitus without complications; F17.210 Nicotine dependence, cigarettes, uncomplicated; Z90.710 Acquired absence of both cervix and uterus ==

== ENCOUNTER 2019-10-31 20:24 | Observation (INO) | payer MEDICAID, SELFPAY ==
[2019-10-31] VITALS (41 sets, daily range): BP systolic 107–141; BP diastolic 67–85; PULSE 77; RESP 18; TEMP 36.4; O2SAT 90–98; BMI 38.5
--- NOTE | 2019-10-31 20:32 | ECG_ITS ---
Measurements Intervals [place] Rate: 76 P: 58 CT: 153 QRS: -29 QRSD: 101 T: 39 QT: 395 QTc: 444 SINUS RHYTHM INDETERMINATE AXIS LOW QRS VOLTAGE IN PRECORDIAL LEADS [QRS DEFLECTION < 1.0 mV IN CHEST LEADS] Compared to ECG 09/03/2019 11:47:43 Indeterminate axis now present Left-axis deviation no longer present ST (T wave) deviation no longer present Electronically Signed On 11-01-2019 11:17:06 GRANITE COUNTERTOP INSTALLER by Haile Mattson M.D. [email or web address]
[2019-10-31 21:01] LABS: Basophils # 0.1 10^3/uL (0.0-0.1); Basophils % 0.6 %; Eosinophils # 0.3 10^3/uL (0.0-0.8); Hematocrit 39.5 % (37.0-47.0); Lymphocytes # 3.2 10^3/uL (0.8-4.8); Lymphocytes % 37.5 %; Mean Corpuscular HGB Conc 30.4 g/dL (30.0-36.0); Mean Corpuscular Hemoglobin 25.3 pg (28.0-34.0); Mean Corpuscular Volume 83.2 fL (81-99); Mean Platelet Volume 9.5 fL (7.4-10.4); Monocytes # 0.5 10^3/uL (0.2-0.9); Monocytes % 6.1 %; Neutrophils # 4.5 10^3/uL (1.8-7.7); Neutrophils % 52.5 %; Nucleated Red Blood Cells % 0 %; Platelet Count 305 10^3/cmm (130-400); Red Blood Count 4.75 10^6/uL (4.1-5.3); Red Cell Distribution Width 15.8 % (12.1-15.1); White Blood Count 8.6 10^3/uL (4.0-10.0)
[2019-10-31] MEDS: aspirin 325 mg Tablet PO (21:01)
[2019-10-31] MEDS: nitroglycerin 0.4 mg sublingual Tablet SUBLINGUAL (21:02)
--- NOTE | 2019-10-31 21:10 | ED_ITS ---
Entered by Parvin Perez, acting as scribe for Nohemi Faustin Oct 31, 2019 20:24 HPI - SOB/Dyspnea General: Chief Complaint: Shortness of Breath/Dyspnea Stated Complaint: chest pain, sob Time Seen by Provider: 10/31/19 20:31 Source: patient and family Mode of arrival: ambulatory History of Present Illness: HPI Narrative: 48 y/o female presents to the ED with complaint of SOB. Pt was just seen here and d/c. Pt was offered Admit to the hospital but declined. She has since changed her mind and is back for re- eval and admittance. MD elicited complaint: shortness of breath Associated symptoms: Deny abdominal pain, diaphoresis, dizziness, extremity pain, fever(s), nausea, polydipsia or vomiting Review of Systems General: Reports: other (negative unless marked) Const: Denies: fever, chills, body aches, fatigue, malaise or diaphoresis Eyes: Denies: change in vision or blurry vision ENMT: Denies: throat pain, painful swallowing, hoarseness, ear pain, ear discharge, Change in hearing or nasal discharge GI: Denies: abdominal pain, nausea, vomiting, vomiting blood, coffee grounds in vomit, diarrhea, constipation, cramping, blood in stool or black tarry stool : Denies: flank pain, painful urination, urinary frequency, urinary urgency, decreased urine ouput, urinary incontinence or blood in urine Musc: Denies: neck pain, back pain, extremity pain, extremity swelling, joint pain, joint swelling, joint warmth or joint stiffness Skin/Breast: Denies: rash, skin tenderness or yellow skin Neuro: Denies: headache, numbness in extremities, weakness in extremities, changes in sensation, lack of coordination, difficulty walking, dizziness, vertigo or confusion Endo: Denies: excessive thirst, tired all the time, cold intolerance, excessive sweating, flushing or hot flashes [place]/Lymph: Denies: easy bruising, easy bleeding, petechiae or enlarged lymph nodes All/Imm: Denies: hives, throat swelling, tongue swelling, facial swelling or acute wheezing PFS ED PFSH: Medical History (Updated 11/01/19 @ 00:53 by Nohemi Faustin) Diabetes mellitus, type II Surgical History (Updated 10/28/19 @ 15:41 by Ellis Philip) H/O tubal ligation H/O: hysterectomy History of delivery Social History Smoking and tobacco status: current every day smoker cigarettes Packs smoked per day: 0.5 (PPD) Quit status (tobacco): not considering quitting Alcohol intake: never Current occupational status: unemployed Physical Exam Const: COMMON NORMALS: no apparent distress, oriented x3, no limitations, healthy appearing and well nourished EXAM LIMITATIONS: no altered mental status GENERAL APPEARANCE: cooperative, well kempt and well developed ORIENTATION/CONSCIOUSNESS: Yes awake HENMT: COMMON NORMALS: normocephalic, head/scalp atraumatic, hearing grossly normal bilaterally, external ears normal, EAC's normal, external nose normal and moist oral mucous membranes HEAD & SCALP: normal to inspection, normocephalic and atraumatic FACE & SINUS: normal facial exam and face symmetric NOSE: external nose normal and nares normal EXTERNAL EAR: Yes external ears normal EXTERNAL AUDITORY CANAL: EAC's normal MOUTH: oral and palatal mucosa normal and tongue normal Eye: COMMON NORMALS: PERRL, EOMs intact bilaterally, conjunctivae normal and no scleral icterus GENERAL EYE: normal appearance of both eyes and normal light reflex CONJUNCTIVA: Yes conjunctivae normal SCLERA: sclerae normal CORNEA: Yes corneas normal PUPIL: Yes PERRL DIRECT OPHTHALMOSCOPY: Yes normal light reflex Neck/C-Spine: COMMON NORMALS: full ROM, no lymphadenopathy, supple, no meningeal signs and no JVD GENERAL: Yes normal visual inspection and Yes trachea midline CERVICAL SPINE: Yes cervical ROM normal Chest: COMMONS NORMALS: inspection of chest normal and palpation of chest normal Resp: EFFORT & INSPECTION: Yes able to speak in complete sentences Cardio: COMMON NORMALS: no JVD, regular rate, regular rhythm, S1 normal heart sound, S2 normal heart sound, no gallops, no clicks, no murmurs and no rub JUGULAR VENOUS DISTENTION: no JVD RATE: regular rate RHYTHM: regular rhythm HEART SOUNDS: S1 normal and S2 normal GI: COMMON NORMALS: soft to palpation, non-tender, no hepatosplenomegaly and no masses INSPECTION: Yes normal to inspection PALPATION: Yes soft and Yes no hepatosplenomegaly : COMMON NORMALS: Yes no CVA tenderness BLADDER/KIDNEY EXAM: Yes no CVA tenderness Back/Pelvis: COMMON NORMALS: no CVA tenderness, thoracic and lumbar spine normal to inspection, no thoracic nor lumbar tenderness and thoraco-lumbar ROM normal Extremity: COMMON NORMALS: normal to inspection, full ROM, normal capillary refill, no joint enlargement, no clubbing, cyanosis or edema and no calf tenderness Neuro: COMMON NORMALS: oriented x3, CN's II-XII intact bilaterally, moves all extremities, no focal motor deficits and no sensory deficits noted MENINGEAL SIGNS: Yes no meningeal signs Psych: COMMON NORMALS: mental status grossly normal, thought process normal, cooperative, affect normal, speech normal and activity/motor behavior normal APPEARANCE: Yes well kempt SPEECH: Yes normal speech THOUGHT PROCESS: normal thought process Skin: COMMON NORMALS: no rashes or lesions noted, skin turgor normal, no jaundice, no petechiae and no mottling GENERAL SKIN EXAM: no rashes or lesions noted and turgor normal Course Vital Signs: Vital signs: Vital Signs Temperature 97.6 F 10/31/19 20:33 Pulse Rate 77 10/31/19 20:33 Respiratory Rate 18 10/31/19 23:54 Blood Pressure 131/75 11/01/19 00:30 Pulse Oximetry 92 11/01/19 00:30 MDM - SOB/Dyspnea MDM Narrative: Medical decision making narrative: The case was reviewed with Dr. Zepeda. He agrees to come and evaluate and admit the patient. Lab Data: Attestation: I reviewed the patient's lab results. Labs: Lab Results 10/31/19 10/31/19 10/31/19 Range/Units 20:48 20:48 20:48 WBC 8.6 (4.0-10.0) 10^3/ uL RBC 4.75 (4.1-5.3) 10^6/u L Hgb 12.0 (11.5-15.3) g/dL Hct 39.5 (37.0-47.0) % MCV 83.2 (81-99) fL MCH 25.3 L (28.0-34.0) pg MCHC 30.4 (30.0-36.0) g/dL RDW 15.8 H (12.1-15.1) % Plt Count 305 (130-400) 10^3/c mm MPV 9.5 (7.4-10.4) fL Neut % (Auto) 52.5 % Lymph % (Auto) 37.5 % [place] % (Auto) 6.1 % Eos % (Auto) 3.0 % Baso % (Auto) 0.6 % Neut # (Auto) 4.5 (1.8-7.7) 10^3/u L Lymph # (Auto) 3.2 (0.8-4.8) 10^3/u L [place]ette # (Auto) 0.5 (0.2-0.9) 10^3/u L Eos # (Auto) 0.3 (0.0-0.8) 10^3/u L Baso # (Auto) 0.1 (0.0-0.1) 10^3/u L Nucleated RBC % (a uto) 0 % Nucleated RBCs # 0.0 /100WBC D-Dimer (0-0.59) ug/mIFE U Specimen Type Sample Site ABG pH (7.35-7.45) ABG pCO2 (35-45) mmHg ABG pO2 (80.0-100.0) mmH g ABG HCO3 (22-26) mmol/L ABG Base Excess (-2.0-2.0) mmol/ L Power Test Hematocrit (37-47) % O2 Delivery Device [employer] Salesperson ID Sodium 138 (136-145) mmol/L Potassium 4.0 (3.5-5.1) mmol/L Chloride 104 (98-107) mmol/L Carbon Dioxide 21 L (22-29) mmol/L Anion Gap 17.0 (5-19) BUN 10 (6-20) mg/dL Creatinine 0.9 (0.5-0.9) mg/dL GFR Calculation 66.3 L (90-130) mL/min Glucose 106 (65-115) mg/dL Calcium 9.8 (8.5-10.5) mg/dL Total Bilirubin 0.3 (0.15-1.2) mg/dL AST 24 (0-32) U/L ALT 14 (0-33) U/L Alkaline Phosphata se 124 H (35-105) IU/L Troponin T Baselin e 19 H (0-10) ng/mL Troponin T 120 Min [place] (0-10) ng/mL Delta Troponin T (0-10) ABS# NT-Pro-B Natriuret Pep 60 (0-125) pg/mL Total Protein 7.2 (6.6-8.7) g/dL Albumin 3.9 (3.5-5.2) g/dL Globulin 3.3 (1.3-4.6) g/dL Urine Color (Yellow) Urine Appearance (CLEAR) Urine pH (5-7) Ur Specific Gravit y (1.005-1.030) Urine Protein (Negative) Urine Glucose (UA) (Normal) Urine Ketones (Negative) Urine Occult Blood (Negative) Urine Nitrate (Negative) Urine Bilirubin (NEGATIVE) Urine Urobilinogen (Negative) mg/dL Ur Leukocyte Herlinda ase (Negative) Urine RBC (0-2) /hpf Urine WBC (0-5) /hpf Ur Squamous Epith Cells (0-5) Urine Bacteria (NONE) 10/31/19 10/31/19 10/31/19 Range/Units 20:48 21:26 21:30 WBC (4.0-10.0) 10^3/ uL RBC (4.1-5.3) 10^6/u L Hgb (11.5-15.3) g/dL Hct (37.0-47.0) % MCV (81-99) fL MCH (28.0-34.0) pg MCHC (30.0-36.0) g/dL RDW (12.1-15.1) % Plt Count (130-400) 10^3/c mm MPV (7.4-10.4) fL Neut % (Auto) % Lymph % (Auto) % [place] % (Auto) % Eos % (Auto) % Baso % (Auto) % Neut # (Auto) (1.8-7.7) 10^3/u L Lymph # (Auto) (0.8-4.8) 10^3/u L [place]ette # (Auto) (0.2-0.9) 10^3/u L Eos # (Auto) (0.0-0.8) 10^3/u L Baso # (Auto) (0.0-0.1) 10^3/u L Nucleated RBC % (a uto) % Nucleated RBCs # /100WBC D-Dimer 0.64 H (0-0.59) ug/mIFE U Specimen Type Arterial Sample Site Radial, right ABG pH 7.40 (7.35-7.45) ABG pCO2 32.9 L (35-45) mmHg ABG pO2 73.6 L (80.0-100.0) mmH g ABG HCO3 20.3 L (22-26) mmol/L ABG Base Excess -3.8 L (-2.0-2.0) mmol/ L Power Test Pos Hematocrit 39.7 (37-47) % O2 Delivery Device Room air [employer] Salesperson ID [email or web address] Sodium (136-145) mmol/L Potassium (3.5-5.1) mmol/L Chloride (98-107) mmol/L Carbon Dioxide (22-29) mmol/L Anion Gap (5-19) BUN (6-20) mg/dL Creatinine (0.5-0.9) mg/dL GFR Calculation (90-130) mL/min Glucose (65-115) mg/dL Calcium (8.5-10.5) mg/dL Total Bilirubin (0.15-1.2) mg/dL AST (0-32) U/L ALT (0-33) U/L Alkaline Phosphata se (35-105) IU/L Troponin T Baselin e (0-10) ng/mL Troponin T 120 Min [place] (0-10) ng/mL Delta Troponin T (0-10) ABS# NT-Pro-B Natriuret Pep (0-125) pg/mL Total Protein (6.6-8.7) g/dL Albumin (3.5-5.2) g/dL Globulin (1.3-4.6) g/dL Urine Color Straw (Yellow) Urine Appearance Clear (CLEAR) Urine pH 5 (5-7) Ur Specific Gravit y 1.005 (1.005-1.030) Urine Protein Neg (Negative) Urine Glucose (UA) Norm (Normal) Urine Ketones Negative (Negative) Urine Occult Blood Neg (Negative) Urine Nitrate Negative (Negative) Urine Bilirubin Neg (NEGATIVE) Urine Urobilinogen Norm (Negative) mg/dL Ur Leukocyte Herlinda ase Negative (Negative) Urine RBC 0-4 H (0-2) /hpf Urine WBC 0-4 H (0-5) /hpf Ur Squamous Epith Cells 5-10 H (0-5) Urine Bacteria 1+ H (NONE) 10/31/19 Range/Units 22:26 WBC (4.0-10.0) 10^3/ uL RBC (4.1-5.3) 10^6/u L Hgb (11.5-15.3) g/dL Hct (37.0-47.0) % MCV (81-99) fL MCH (28.0-34.0) pg MCHC (30.0-36.0) g/dL RDW (12.1-15.1) % Plt Count (130-400) 10^3/c mm MPV (7.4-10.4) fL Neut % (Auto) % Lymph % (Auto) % [place]ette % (Auto) % Eos % (Auto) % Baso % (Auto) % Neut # (Auto) (1.8-7.7) 10^3/u L Lymph # (Auto) (0.8-4.8) 10^3/u L [place]ette # (Auto) (0.2-0.9) 10^3/u L Eos # (Auto) (0.0-0.8) 10^3/u L Baso # (Auto) (0.0-0.1) 10^3/u L Nucleated RBC % (a uto) % Nucleated RBCs # /100WBC D-Dimer (0-0.59) ug/mIFE U Specimen Type Sample Site ABG pH (7.35-7.45) ABG pCO2 (35-45) mmHg ABG pO2 (80.0-100.0) mmH g ABG HCO3 (22-26) mmol/L ABG Base Excess (-2.0-2.0) mmol/ L Power Test Hematocrit (37-47) % O2 Delivery Device [employer] Salesperson ID Sodium (136-145) mmol/L Potassium (3.5-5.1) mmol/L Chloride (98-107) mmol/L Carbon Dioxide (22-29) mmol/L Anion Gap (5-19) BUN (6-20) mg/dL Creatinine (0.5-0.9) mg/dL GFR Calculation (90-130) mL/min Glucose (65-115) mg/dL Calcium (8.5-10.5) mg/dL Total Bilirubin (0.15-1.2) mg/dL AST (0-32) U/L ALT (0-33) U/L Alkaline Phosphata se (35-105) IU/L Troponin T Baselin e (0-10) ng/mL Troponin T 120 Min [place] 19.61 H (0-10) ng/mL Delta Troponin T 0.61 (0-10) ABS# NT-Pro-B Natriuret Pep (0-125) pg/mL Total Protein (6.6-8.7) g/dL Albumin (3.5-5.2) g/dL Globulin (1.3-4.6) g/dL Urine Color (Yellow) Urine Appearance (CLEAR) Urine pH (5-7) Ur Specific Gravit y (1.005-1.030) Urine Protein (Negative) Urine Glucose (UA) (Normal) Urine Ketones (Negative) Urine Occult Blood (Negative) Urine Nitrate (Negative) Urine Bilirubin (NEGATIVE) Urine Urobilinogen (Negative) mg/dL Ur Leukocyte Herlinda ase (Negative) Urine RBC (0-2) /hpf Urine WBC (0-5) /hpf Ur Squamous Epith Cells (0-5) Urine Bacteria (NONE) Imaging Data^: CT : Radiologist's impression: [place] [address] CT Scan Report Signed Patient: Janell Chopra #: [id number] : 1970Acct#:[id number] Age/Sex: 48 / FADM Date: 10/31/19 [facility] Attending Dr: Gigi Zepeda MD Ordering Provider/Ordering MD: Nohemi Faustin DO Date of Service: 10/31/19 Procedure(s): CT angio chest PE protcl [id number] Accession Number(s): [id number] Report Number: [id number] PROCEDURE INFORMATION: Exam: CT Angiography Chest With Contrast Exam date and time: 10/31/2019 10:44 PM Age: 48 years old Clinical indication: Dyspnea; Additional info: Chest pain TECHNIQUE: Imaging protocol: Computed tomographic angiography of the chest with intravenous contrast. 3D rendering: MIP and/or 3D reconstructed images were created by the technologist. Total DLP: 627.09 mGy-cm Radiation optimization: All CT scans at this facility use at least one of these dose optimization techniques: automated exposure control; mA and/or kV adjustment per patient size (includes targeted exams where dose is matched to clinical indication); or iterative reconstruction. Contrast material: OMNI 300; Contrast volume: 95 ml; Contrast route: IV; COMPARISON: CR XR chest 1V portable [id number] 10/31/2019 5:01 PM FINDINGS: Pulmonary arteries: Normal. No pulmonary emboli. Aorta: Unremarkable. No aortic aneurysm. No aortic dissection. Lungs: Unremarkable. No consolidation. No masses. Pleural space: Unremarkable. No pneumothorax. No pleural effusion. Heart: Unremarkable. No cardiomegaly. No pericardial effusion. Kidneys and ureters: 4 mm right renal calculus. Lymph nodes: Unremarkable. No enlarged lymph nodes. Bones/joints: Unremarkable. No acute fracture. Soft tissues: Unremarkable. CT/CT angio chest PE protcl [id number] IMPRESSION: 1. No evidence for pulmonary embolus or other acute pathology. 2. Right nephrolithiasis. Radiation Dose CTDIVOL = (mGy): DLP = 627.09 (mGy-cm) EKG Data^: EKG 1: Attestation: I personally reviewed and interpreted this EKG as follows: EKG Interpretation Date: 10/31/19 EKG interpretation time: 22:07 Interpretation: Normal sinus rhythm at 74 beats a minute, no acute ST-T wave changes. Unchanged from previous. EKG 2: EKG Interpretation Date: 10/31/19 EKG interpretation time: 23:41 Interpretation: Normal sinus rhythm at 73 beats a minute, nonspecific ST-T wave changes. Unchanged from previous. Discharge Plan Discharge Patient Disposition: Placed in Observation Admit Provider: Gigi Zepeda Clinical Impression: Chest pain Condition: Stable Coding Level of Care Code ED Development Rep for Chg Fwd Exam Comprehensive The documentation recorded by the Chris watson Ashley, accurately reflects the service I personally performed and the decisions made by Roxie vickers Eli N Oct 31, 2019 20:24
[2019-10-31 21:11] LABS: D Dimer 0.64 ug/mIFEU (0-0.59)
[2019-10-31 21:21] LABS: Troponin(5th) Baseline 19 ng/mL (0-10)
[2019-10-31 21:29] LABS: Alanine Aminotransferase 14 U/L (0-33); Albumin Level 3.9 g/dL (3.5-5.2); Alkaline Phosphatase 124 IU/L (35-105); Aspartate Amino Transferase 24 U/L (0-32); Blood Urea Nitrogen 10 mg/dL (6-20); Calcium 9.8 mg/dL (8.5-10.5); Carbon Dioxide 21 mmol/L (22-29); Chloride 104 mmol/L (98-107); Globulin 3.3 g/dL (1.3-4.6); Glomerular Filtration Rate 66.3 mL/min (90-130); Glucose 106 mg/dL (65-115); NT Pro B Type Natriuretic Pept 60 pg/mL (0-125); Sodium 138 mmol/L (136-145); Total Bilirubin 0.3 mg/dL (0.15-1.2); Total Protein 7.2 g/dL (6.6-8.7)
[2019-10-31 21:38] LABS: ABG PCO2 32.9 mmHg (35-45); Arterial Blood Gas Hematocrit 39.7 % (37-47); Base Excess ABG -3.8 mmol/L (-2.0-2.0); Blood Gas Allen Test Pos; Blood Gas Sample Site Radial, right; Blood Gas Sample Type Arterial; HCO3 ABG 20.3 mmol/L (22-26); Oxygen Device ROOM AIR; PO2 ABG 73.6 mmHg (80.0-100.0)
--- NOTE | 2019-10-31 21:59 | CTR_ITS ---
PROCEDURE INFORMATION: Exam: CT Angiography Chest With Contrast Exam date and time: 10/31/2019 10:44 PM Age: 48 years old Clinical indication: Dyspnea; Additional info: Chest pain TECHNIQUE: Imaging protocol: Computed tomographic angiography of the chest with intravenous contrast. 3D rendering: MIP and/or 3D reconstructed images were created by the technologist. Total DLP: 627.09 mGy-cm Radiation optimization: All CT scans at this facility use at least one of these dose optimization techniques: automated exposure control; mA and/or kV adjustment per patient size (includes targeted exams where dose is matched to clinical indication); or iterative reconstruction. Contrast material: OMNI 300; Contrast volume: 95 ml; Contrast route: IV; COMPARISON: CR XR chest 1V portable [id number] 10/31/2019 5:01 PM FINDINGS: Pulmonary arteries: Normal. No pulmonary emboli. Aorta: Unremarkable. No aortic aneurysm. No aortic dissection. Lungs: Unremarkable. No consolidation. No masses. Pleural space: Unremarkable. No pneumothorax. No pleural effusion. Heart: Unremarkable. No cardiomegaly. No pericardial effusion. Kidneys and ureters: 4 mm right renal calculus. Lymph nodes: Unremarkable. No enlarged lymph nodes. Bones/joints: Unremarkable. No acute fracture. Soft tissues: Unremarkable. CT/CT angio chest PE protcl [id number] IMPRESSION: 1. No evidence for pulmonary embolus or other acute pathology. 2. Right nephrolithiasis. Radiation Dose CTDIVOL = (mGy): DLP = 627.09 (mGy-cm)
[2019-10-31 22:13] LABS: Bilirubin Urine Neg (NEGATIVE); Blood Urine Neg (Negative); Glucose Urine UA Norm (Normal); Ketones Urine Negative (Negative); Leukocyte Esterase Urine Negative (Negative); Nitrate Urine Negative (Negative); Protein Urine Neg (Negative); Specific Gravity, Urine 1.005 (1.005-1.030); Urine Appearance Clear (CLEAR); Urine Color Straw (Yellow); Urobilinogen Urine Norm (Negative); pH Urine 5 (5-7)
[2019-10-31 22:14] LABS: Add Urine Culture? No; Bacteria Urine 1+; RBC Urine 0-4 /hpf (0-2); WBC Urine 0-4 /hpf (0-5)
--- NOTE | 2019-10-31 22:32 | ECG_ITS ---
Measurements Intervals [place] Rate: 74 P: 32 IL: 128 QRS: -34 QRSD: 105 T: 1 QT: 381 QTc: 425 SINUS RHYTHM LEFT AXIS DEVIATION [QRS AXIS < -30] LOW QRS VOLTAGE IN PRECORDIAL LEADS [QRS DEFLECTION < 1.0 mV IN CHEST LEADS] Compared to ECG 09/03/2019 11:47:43 ST (T wave) deviation no longer present Electronically Signed On 11-01-2019 11:24:45 ATOMIC PROCESS ENGINEER by Haile Mattson M.D. [email or web address]
[2019-10-31] MEDS: iohexol 350 mg/mL 100 mL Btl IV (22:44)
[2019-10-31 22:53] LABS: Troponin 5 2HR 19.61 ng/mL (0-10); Troponin 5 2HR Delta 0.61 ABS# (0-10)
--- NOTE | 2019-10-31 23:29 | ECG_ITS ---
Measurements Intervals [place] Rate: 73 P: 23 MA: 140 QRS: -44 QRSD: 96 T: -9 QT: 399 QTc: 443 SINUS RHYTHM LOW QRS VOLTAGE IN PRECORDIAL LEADS [QRS DEFLECTION < 1.0 mV IN CHEST LEADS] INFERIOR MYOCARDIAL INFARCTION , OF INDETERMINATE AGE [40+ ms Q WAVE AND/OR ST/T ABNORMALITY IN II/aVF] Compared to ECG 09/03/2019 11:47:43 Myocardial infarct finding now present Left-axis deviation no longer present ST (T wave) deviation no longer present Electronically Signed On 11-01-2019 11:18:43 SUPERVISOR [employer] by Haile Mattson M.D. [email or web address]
[2019-10-31] MEDS: morphine 4 mg/mL SDV 1 mL IVP (23:54)
[2019-10-31] MEDS: ondansetron 2 mg/ML SDV 2 mL 4 MG IVP (23:55)
[2019-11-01] VITALS (18 sets, daily range): BP systolic 97–131; BP diastolic 54–78; PULSE 70–108; RESP 14–21; TEMP 36.7–36.9; O2SAT 92–97
--- NOTE | 2019-11-01 00:53 | P.HP_ITS ---
Providers/Chief Complaint Admitting Physician: Gigi Zepeda MD Primary Care Provider: Brian Mary, BOX PRINTING MACHINE OPERATOR-C Chief Complaint: chest pain, sob History of Present Illness Phyllis Chopra is a 48 year old female with a past medical history of SVT status post ablation, cardiomyopathy, hypertension who presents to the emergency room due to complaints of chest pain. Patient of note has had multiple ER visits over the last 6 months for chest pain, has had a relatively unremarkable work- up, recently had a unremarkable cardiac stress test, also had a Holter monitor which showed frequent PVCs. Patient states that for the last 48 hours she has had significant chest pain, substernal, the chest pain according to her is difficult to describe, as a pressure-like sensation, radiating to her back, sometimes to her left neck left face, left arm, sometimes lasting a few seconds, the longest episode lasting 9 hours, associate with shortness of breath, lightheadedness, no diaphoresis, no nausea, no vomiting, she presents emergency room today due to more severe episodes, longer lasting episodes. Of note patient was just here in the ER 10/31/2019 for similar symptoms, was diagnosed wi th bronchitis, GERD, and sent home, but patient's continued, more severe, so she presented to the emergency room for evaluation. Patient denies a history of CAD, does have a history of ischemic cardiomyopathy, does have a history of SVT status post ablation many years ago. Patient does complain of shortness of breath, but states that shortness of breath is mostly mainly due to inactivity, denies lower extremity edema, denies wheezing, denies orthopnea, denies paroxysmal nocturnal dyspnea. In the emergency room patient had a evaluation for a aortic dissection which was unremarkable, her EKG shows normal sinus rhythm no significant ST-T wave changes, no significant troponin elevation, during my examination patient continued to have some substernal chest pain, pressure-like. In addition patient has complaints of lightheadedness, dizziness, vertigo when changing head positions, she is had this lightheadedness, dizziness, vertigo for the last 10 years, she has been told that she has vertigo, patient continues to have symptoms, and is dissatisfied with her diagnosis. Patient states that with these symptoms, she has presyncopal episodes, like she will blackout. No strokelike symptoms, no facial droop, no paralysis, no slurring of her speech, no seizure-like activity. Review of Systems Const: Denies: fever, chills, fatigue or malaise Eyes: Denies: change in vision or blurry vision ENMT: Denies: nasal congestion Card: Reports: chest pain, lightheadedness and pre-syncope; Denies: palpitations or irregular heart rhythm Resp: Denies: shortness of breath, productive cough, non-productive cough or wheezing GI: Denies: abdominal pain, nausea, vomiting, vomiting blood, diarrhea, constipation, blood in stool or black tarry stool : Denies: flank pain, painful urination or urinary frequency Musc: Denies: neck pain or back pain Skin/Breast: Denies: rash Neuro: Denies: headache, dizziness or vertigo Psych: Denies: anxiety or depression Endo: Denies: excessive urination or excessive thirst Medications/Allergies Allergies Allergy/AdvReac Type Severity Reaction Status Date / Time No Known Allergies Allergy Verified 09/28/19 10:20 PFSH Acute PFSH: Medical History (Updated 11/01/19 @ 01:02 by Gigi Zepeda MD) Anxiety and depression Chondromalacia, right knee COPD (chronic obstructive pulmonary disease) Dilated cardiomyopathy Left flank tenderness Lumbar pain on palpation Lumbar paraspinal muscle spasm Memory change Osteoarthritis Peptic ulcer SVT (supraventricular tachycardia) Surgical History (Updated 11/01/19 @ 01:02 by Gigi Zepeda MD) H/O arthroscopic knee surgery H/O tubal ligation H/O: hysterectomy History of delivery Social History Smoking and tobacco status: current every day smoker cigarettes Packs smoked per day: 0.5 (PPD) Quit status (tobacco): not considering quitting Alcohol intake: never Current occupational status: unemployed Vitals/I&O/Wt Last Vital Signs Temp 97.6 F 10/31/19 20:33 Pulse 77 10/31/19 20:33 Resp 18 10/31/19 23:54 BP 131/75 11/01/19 00:30 Pulse Ox 92 11/01/19 00:30 Weight last 48 hrs Weight 127.006 kg Physical Exam Const: COMMON NORMALS: no apparent distress and oriented x3 GENERAL APPEARANCE: cooperative and comfortable HENMT: COMMON NORMALS: normocephalic HEAD & SCALP: normocephalic Eye: COMMON NORMALS: PERRL, EOMs intact bilaterally and no papilledema GENERAL EYE: normal appearance of both eyes PUPIL: Yes PERRL DIRECT OPHTHALMOSCOPY: Yes no papilledema Neck/C-Spine: COMMON NORMALS: full ROM, no lymphadenopathy, no JVD and thyroid normal THYROID: thyroid normal Lymph: LYMPHATIC: no lymphadenopathy noted Resp: COMMON NORMALS: normal respiratory effort, no retractions, no use of accessory muscles and clear to auscultation bilaterally AUSCULTATION: clear to auscultation bilaterally Cardio: COMMON NORMALS: no JVD, regular rate, regular rhythm, S1 normal heart sound, S2 normal heart sound, no gallops, no clicks and no murmurs RATE: regular rate RHYTHM: regular rhythm HEART SOUNDS: S1 normal and S2 normal GI: COMMON NORMALS: normal to inspection, nondistended, normoactive bowel sounds, soft to palpation, non-tender and no hepatosplenomegaly PALPATION: Yes soft and Yes no hepatosplenomegaly Extremity: COMMON NORMALS: normal to inspection, full ROM and no pedal edema Neuro: COMMON NORMALS: oriented x3, CN's II-XII intact bilaterally, moves all extremities and no focal motor deficits Psych: COMMON NORMALS: mental status grossly normal, thought process normal and cooperative THOUGHT PROCESS: normal thought process Data : 10/31/19 20:48 10/31/19 20:48 A&P Assessment and plan (1) Chest pain: -Patient have been relatively unremarkable troponins in the emergency room -EKG showed left axis deviation, normal sinus rhythm, no significant ST-T wave changes -Patient had a stress test 10/04/2019 which was within normal limits, no clinically significant evidence of obstructive CAD -Holter monitor October 2019 showed baseline rhythm was found to be normal sinus with an average heart rate of 84 bpm. No significant pauses or bradycardias noted. Occasional ventricular and rare supraventricular ectopics are noted. The symptom of dizziness/palpitation was not found to be associated with any significant arrhythmias. Severely diminished heart rate variability indicis. -Patient had an echocardiogram on 07/07/2018 which showed mildly decreased left ventricular systolic function, 45 to 50%, mild global left ventricular hypokinesis, grade 1 diastolic dysfunction -Patient continues to have chest pain episodes, they do sound cardiac in nature Plan: -Admit to [facility] -Aspirin, statin, beta-toby -Telemetry monitoring -Nitro for chest pain -Morphine -We will order a cardiac echocardiogram in [facility] -Based on patient's clinical progress, will likely consult cardiology as patient has already had her stress test, and continues to have chest pain Status: Acute Qualifiers: Chest pain type: unspecified Qualified Code(s): R07.9 - Chest pain, unspecified Code(s): R07.9 - Chest pain, unspecified (2) Pre-syncope: -Has been having these symptoms for the last 10 years -Does sound a lot like benign positional vertigo -CT of the neck with IV contrast on 07/13/2019 shows a bovine arch with a common trunk for the brachiocephalic and left common carotid arteries -Carotid artery ultrasound in 08/28/2018 showed no significant evidence of carotid artery stenosis -Blood patient does state that she almost passes out with the symptoms Plan: -We will order a carotid ultrasound -PT OT for [place] maneuver -Consider CTA head and neck if she continues to have symptoms to rule out posterior circulation stroke Status: Acute Code(s): R55 - Syncope and collapse (3) Hypertension: Continue home medications Status: Acute Code(s): I10 - Essential (primary) hypertension (4) Chronic GERD: Status: Acute Code(s): K21.9 - Gastro-esophageal reflux disease without esophagitis Attestations Medical Necessity Statement*: Patient requires hospitalization, outpatient with observation, for chest pain Coding Level of Care Code Acute Director [facility] for [facility] Fwd Diagnoses Chest pain R07.9 Chest pain type: unspecified Pre-syncope R55 Hypertension I10 Chronic GERD K21.9
[2019-11-01] MEDS: nitroglycerin 0.4 mg sublingual Tablet SUBLINGUAL (01:01)
--- NOTE | 2019-11-01 01:51 | US_ITS ---
WS: [id number] RIGHT UPPER QUADRANT ULTRASOUND HISTORY: flank and RIGHT upper quadrant pain. COMPARISON: None available. Liver: 18.3 cm in length. Normal size and echogenicity with no intrahepatic dilatation. No mass. Gallbladder: Normally distended gallbladder with no stones or wall thickening. CBD: 0.3 cm Pancreas: Tail is completely obscured by bowel gas. Body and head are negative. Right kidney: 11.3 cm in length. Normal echogenicity with no mass or hydronephrosis. Aorta and IVC: Unremarkable. No ascites. US/US abdomen limited 12882 IMPRESSION: 1. Mild hepatic steatosis. 2. Negative gallbladder.
--- NOTE | 2019-11-01 01:51 | USCV_ITS ---
Phyllis Chopra Age: 48 Gender: F : 1970 Exam Date: 11/01/2019 07:24 Ordering Phys: Gigi Zepeda MD Technologist: Delisa Redd Exam Location: [facility] [place] Indication: LIGHTHEADEDNESS Risk Factors: Previous Vascular Surgery: Right Brachial BP: / Left Brachial BP: / Right Left Velocity (cm/s) Spectral Plaque Velocity (cm/s) Spectral Plaque Syst/Diast Broadening Syst/Diast Broadening 123.50/38.60 Prox CCA 121.30/ 35.30 118.00/18.70 Mid CCA 103.60/ 35.30 86.00/ 25.40 Distal CCA 87.10 / 32.00 79.40/ 13.20 Prox ICA 135.40/ 38.10 106.90/25.40 Mid ICA 85.40 / 43.40 48.50/ 22.10 Distal ICA 61.80 / 25.00 82.70 ECA 102.50 0.91 ICA/CCA 1.31 Antegrade Vertebral Retrograde 74.60/ 28.70 cm/s 88.90/ 8.50 cm/s Tri Subclavian Tri 129.0 88.60 0 FINDINGS Comparison:. 08/18/18 No significant elevation of systolic or diastolic velocities. Minimal bilateral, intimal thickening with no elevation of velocity. Possible retrograde left vertebral artery. As seen on prior cta the left vertebral artery arises from the arch. Very small caliber left vertebral artery. CONCLUSIONS Bilateral ICA stenosis less than 50%. Small caliber left vertebral artery with quesionable retrograde flow. The left vertebral arises directly from the arch as seen on a prior CTA, therefore no subclavian steal. Dr. Ruby Mckenzie DO (Electronically Signed) Final Date: 01 November 2019 09:08 S
--- NOTE | 2019-11-01 01:51 | USCV_ITS ---
Mary AnnleifPhyllis Age: 48 Gender: F : 1970 Exam Date: 11/01/2019 07:09 Ordering Phys: Gigi Zepeda MD Technologist: Delisa Redd [place] [facility] [place]: CHEST PAIN BP: 110 / 78 HR: 95 Rhythm: Sinus Technical Quality: Adequate MEASUREMENTS (Male / Female) Normal Values 2D ECHO LV Diastolic Diameter PLAX 4.8 cm 4.2 - 5.9 / 3.9 - 5.3 cm LV Systolic Diameter PLAX 3.0 cm LV Chamber Size 3.2 cm IVS Diastolic Thickness 1.4 cm 0.6 - 1.0 / 0.6 - 0.9 cm IVS Systolic Thickness 1.6 cm LVPW Diastolic Thickness 2.0 cm 0.6 - 1.0 / 0.6 - 0.9 cm LVPW Systolic Thickness 2.4 cm RV Chamber Size 3.4 cm LVOT Diameter 2.0 cm LV Ejection Fraction 2D Teich 68.3 % LV Ejection Fraction MOD 2C 62.3 % LV Ejection Fraction 2C AL 63.5 % LA Diameter 3.6 cm LA Width 3.1 cm LA Height 4.5 cm RA Width 3.4 cm RA Height 4.8 cm Aorta at Sinotubular Diameter 3.1 cm M-MODE LV Diastolic Diameter MM 5.7 cm 4.2 - 5.9 / 3.9 - 5.3 cm LV Systolic Diameter MM 3.6 cm LV Ejection Fraction MM Teich 66.3 % IVS Diastolic Thickness MM 1.1 cm 0.6 - 1.0 / 0.6 - 0.9 cm IVS Systolic Thickness MM 1.6 cm LVPW Diastolic Thickness MM 0.6 cm 0.6 - 1.0 / 0.6 - 0.9 cm LVPW Systolic Thickness MM 1.4 cm Aortic Annulus Diameter 3.6 cm LA Ao Ratio MM 1.0 MV E Point Septal Separation 1.3 cm DOPPLER AV Peak Velocity 116.0 cm/s LVOT Peak Velocity 93.0 cm/s AV Area Cont Eq vti 2.7 cm squared AV Area Cont Eq pk 2.6 cm squared MV Area PHT 3.9 cm squared Mitral E to A Ratio 0.6 MV E' Velocity 9.0 cm/s Mitral E to MV E' Ratio 6.6 Mitral E to LV E' Lateral Ratio 6.4 Mitral E to LV E' Septal Ratio 6.9 TR Peak Velocity 176.0 cm/s TR Peak Gradient 12.4 mmHg TV Peak E Velocity 75.0 cm/s Right Atrial Pressure 3.0 mmHg Pulmonary Artery Systolic Pressu 15.4 mmHg PV Peak Velocity 73.0 cm/s RV Acceleration Time 0.1 s RV Ejection Time 0.3 s RV AcT/ET 0.4 FINDINGS Left Ventricle Normal left ventricular size, systolic function with no diagnostic regional wall motion abnormalities. Left ventricular ejection fraction is estimated at 60 %. Grade 1 diastolic function. Right Ventricle Normal right ventricular size and systolic function. Tricuspid valve regurgitant jet is inadeqaute for estimation of right ventricular systolic pressure. Right Atrium Normal right atrial size. Left Atrium Normal left atrial size. Mitral Valve Mitral valve not well visualized. Mildly thickened mitral valve. No mitral valve stenosis. No mitral valve regurgitation. Aortic Valve Aortic valve not well visualized. No aortic valve stenosis. No aortic valve regurgitation. Tricuspid Valve Structurally normal tricuspid valve. No tricuspid valve stenosis. Trace tricuspid valve regurgitation. Pulmonic Valve Pulmonic valve not well visualized. No significant pulmonary valve regurgitation. Pericardium No pericardial effusion. Aorta Normal sized aortic root. CONCLUSIONS 1. This is a techniccally difficult study. 2. Normal left ventricular size, systolic function with no diagnostic regional wall motion abnormalities. Left ventricular ejection fraction is estimated at 60 %. Grade 1 diastolic function. 3. Normal right ventricular size and systolic function. 4. When compared to previous echocardiogram dated 07/07/2018 left ventricular systolic function seems to have improved. Shivani Matute MD (Electronically Signed) Final Date: 01 November 2019 11:01 S
[2019-11-01] MEDS: enoxaparin 40 mg/0.4 mL Syringe SUBCUT (02:19)
[2019-11-01] MEDS: atorvastatin 40 mg Tablet PO ×2 (02:19→10:41)
--- NOTE | 2019-11-01 02:32 | ECG_ITS ---
Measurements Intervals [place] Rate: 74 P: 32 SC: 128 QRS: -34 QRSD: 105 T: 1 QT: 381 QTc: 425 SINUS RHYTHM LEFT AXIS DEVIATION [QRS AXIS < -30] LOW QRS VOLTAGE IN PRECORDIAL LEADS [QRS DEFLECTION < 1.0 mV IN CHEST LEADS] Compared to ECG 09/03/2019 11:47:43 ST (T wave) deviation no longer present Electronically Signed On 11-01-2019 11:24:48 MANAGER LAW by Haile Mattson M.D. [email or web address]
[2019-11-01] MEDS: sodium chloride 0.9% 1,000 ML 100 ML IV (02:37)
--- NOTE | 2019-11-01 02:48 | PC.NURSE ---
Patient arrived to her room from the ED after report was received via phone. Patient is alert and oriented x4 and is ambulatory. Patient states she is allergic to some medication that she cannot remember. Patient reports chest pain 3/10 stating it might be my heartburn. Patient received ordered Lovenox injection and patient complained of burning after and stated she would be refusing the next one.
[2019-11-01 03:38] LABS: Troponin 5 6HR 13.29 ng/mL (0-10)
[2019-11-01 03:41] LABS: Troponin 5 6HR Delta -5.71 ng/L (0-12)
[2019-11-01 03:45] LABS: NT Pro B Type Natriuretic Pept 66 pg/mL (0-125)
[2019-11-01 03:46] LABS: Thyroid Stimulating Hormone 1.06 uIU/mL (0.27-4.20)
[2019-11-01 05:37] LABS: Basophils % 0.2 %; Hematocrit 37.9 % (37.0-47.0); Hemoglobin 11.8 g/dL (11.5-15.3); Lymphocytes # 1.3 10^3/uL (0.8-4.8); Lymphocytes % 16.4 %; Mean Corpuscular HGB Conc 31.1 g/dL (30.0-36.0); Mean Corpuscular Hemoglobin 26.2 pg (28.0-34.0); Mean Platelet Volume 9.7 fL (7.4-10.4); Monocytes # 0.1 10^3/uL (0.2-0.9); Monocytes % 0.9 %; Neutrophils # 6.7 10^3/uL (1.8-7.7); Neutrophils % 82.1 %; Nucleated Red Blood Cells % 0 %; Platelet Count 283 10^3/cmm (130-400); Red Blood Count 4.51 10^6/uL (4.1-5.3); Red Cell Distribution Width 15.9 % (12.1-15.1); White Blood Count 8.2 10^3/uL (4.0-10.0)
[2019-11-01 06:04] LABS: Anion Gap 18.7 (5-19); Blood Urea Nitrogen 14 mg/dL (6-20); Calcium 9.8 mg/dL (8.5-10.5); Carbon Dioxide 19 mmol/L (22-29); Chloride 103 mmol/L (98-107); Chol HDL Ratio 6.66 mg/dL (0.0-4.40); Cholesterol 213 mg/dL (0-200); Glomerular Filtration Rate 58.7 mL/min (90-130); Glucose 175 mg/dL (65-115); HDL Cholesterol 32 mg/dL (60-100); LDL Cholesterol Calculated 158 mg/dL (50-129); LDL HDL Ratio 4.94 RATIO (0.00-3.22); Osmolality Calculated 282 mOsm/kg (285-295); Potassium 4.7 mmol/L (3.5-5.1); Sodium 136 mmol/L (136-145); Triglycerides 114 mg/dL (0-150)
[2019-11-01 06:32] LABS: Estmated Average Glucose 148; Hemoglobin A1C 6.8 % (4.0-6.0)
--- NOTE | 2019-11-01 08:35 | PM.PN ---
Subjective Subjective: Interval history: Chart reviewed. VSS; pending reports for Echo and carotid US. Patient seen and examined, reviewed history again with her. Case discussed with Dr. Nicole who will come by either later this afternoon or tomorrow to see the patient and evaluate for possible endoscopic evaluation likely as an outpatient. Patient reports difficulty eating her peaches as she has a sensation of something stuck in her throat. She was able to have her sandwich for lunch. She intermittently has difficulty with dysphagia, with both solids and liquids. She is apprehensive about taking Protonix due to potential side effects, states that she did well with combination of omeprazole and ranitidine. Medications: Reviewed: Yes Medication Review Details: Current Medications Generic Name Dose Route Start Last Admin Trade Name Freq PRN Reason Stop Dose Admin Atorvastatin Calci um 40 mg 11/01/19 01:51 11/01/19 02:19 Lipitor PO 40 mg DAILY CHRISTAL Administration Enoxaparin Sodium 40 mg 11/01/19 01:51 11/01/19 02:19 Lovenox SUBCUT 40 mg Q24H CHRISTAL Administration Sodium Chloride 1,000 mls @ 100 m ls/hr 11/01/19 01:51 11/01/19 02:37 Sodium Chloride 0.9% IV 100 mls/hr .Q10H CHRISTAL Administration Vitals/I&O/Wt Last Vital Signs Temp 98.0 F 11/01/19 07:58 Pulse 83 11/01/19 07:58 Resp 14 11/01/19 07:58 BP 102/68 11/01/19 07:58 Pulse Ox 94 11/01/19 07:58 10/31/19 11/01/19 11/01/19 22:59 06:59 14:59 Intake Total 50 / 50 Balance 50 / 50 Weight last 48 hrs Weight 127.006 kg Physical Exam Const: COMMON NORMALS: no apparent distress and oriented x3 GENERAL APPEARANCE: cooperative and comfortable NUTRITIONAL APPEARANCE: obese morbidly obese ORIENTATION/CONSCIOUSNESS: Yes awake HENMT: COMMON NORMALS: normocephalic, head/scalp atraumatic, hearing grossly normal bilaterally and moist oral mucous membranes HEAD & SCALP: normocephalic and atraumatic Eye: COMMON NORMALS: PERRL, EOMs intact bilaterally and conjunctivae normal CONJUNCTIVA: Yes conjunctivae normal PUPIL: Yes PERRL Neck/C-Spine: COMMON NORMALS: full ROM GENERAL: Yes normal visual inspection and Yes trachea midline Chest: COMMONS NORMALS: inspection of chest normal CHEST: Yes tenderness sternum Resp: COMMON NORMALS: normal respiratory effort, no retractions and no use of accessory muscles EFFORT & INSPECTION: Yes able to speak in complete sentences, Yes symmetric chest movement and No tachypneic AUSCULTATION: diminished lung sounds Cardio: COMMON NORMALS: regular rate, regular rhythm, S1 normal heart sound, S2 normal heart sound and no murmurs RATE: regular rate RHYTHM: regular rhythm HEART SOUNDS: S1 normal and S2 normal GI: COMMON NORMALS: normal to inspection, nondistended, normoactive bowel sounds and soft to palpation PALPATION: Yes soft, Yes tender Details: other (Epigastric), No guarding and No rigid Extremity: COMMON NORMALS: normal to inspection, full ROM and no clubbing, cyanosis or edema; negative for no pedal edema Neuro: COMMON NORMALS: oriented x3, moves all extremities, no focal motor deficits, no sensory deficits noted and gait normal Psych: COMMON NORMALS: mental status grossly normal, thought process normal, cooperative, affect normal and speech normal SPEECH: Yes normal speech THOUGHT PROCESS: normal thought process Skin: COMMON NORMALS: no rashes or lesions noted, no jaundice, no petechiae and no mottling GENERAL SKIN EXAM: no rashes or lesions noted Data : 11/01/19 04:34 11/01/19 04:34 A&P Assessment and plan (1) Chest pain: -has had recurrent episodes of chest pain; given her presentation and history are more suspicious that this is GI rather than cardiac related -has had extensive workup done including negative nuclear stress test in 09/2019 and Holter monitoring which showed baseline normal sinus rhythm with frequent PVCs -last Echo (06/2018): EF=45-50%, G1DD, mild global LV hypokinesis, trace MR, trace-mild TR, trace TX; repeat Echo: EF=60%, G1DD, no RWMA, trace TR -troponins noted with negative delta of 5 -no noted ischemic changes on ECG -telemetry monitoring -VSS; continue to monitor -PUJA -may need to discuss with cardiology given persistent symptoms -D-dimer-0.64, CTA negative for PE -abd US: negative for gallbladder pathology, mild hepatic steatosis -noted TSH, lipid panel, A1c (6.8) -continue statin -appreciate Dr. Nicole's consult; outpatient EGD Status: Acute Qualifiers: Chest pain type: unspecified Qualified Code(s): R07.9 - Chest pain, unspecified Code(s): R07.9 - Chest pain, unspecified (2) Pre-syncope: -suspicious for BPPV -carotid US: bilateral ICA stenosis < 50% -PT evaluation -fall precautions -meclizine PRN -not anemic, no evidence of dehydration, not hypoglycemic -orthostatics negative Status: Acute Code(s): R55 - Syncope and collapse Additional A&P Information -Morbid obesity: BMI-39 kg/m2 -Chronic smoker -GERD, chronic dysphagia; has been f/u with Dr. Nicole, continue PPI -HTN; continue oral antihypertensives -Chronic diastolic CHF; no acute exacerbation; last Echo (06/2018): EF=45-50%, G1DD, mild global LV hypokinesis, trace MR, trace-mild TR, trace TX -Anxiety/depression -hx of SVT s/p ablation -hx of ischemic cardiomyopathy -cardiac diet as tolerated -GI ppx with PPI -DVT ppx with Lovenox -Dispo: home -Code status: FULL code Attestations Medical Necessity Statement*: Patient requires hospitalization for continued chest pain r/o ACS workup as well as completion of workup for pre-syncope. Time Spent in Patient Care: Greater than 35 minutes (>than 50% of time spent in counselling and/or direct pt care on unit). Coding Level of Care Code Acute [employer] Crew Leader for Chg Fwd Exam Detailed Diagnoses Chest pain R07.9 Chest pain type: unspecified Pre-syncope R55
[2019-11-01] MEDS: metoprolol succinate ER (24 HR) 100 mg Tablet PO (10:41)
[2019-11-01] MEDS: lisinopril 20 mg Tablet PO ×2 (10:41→17:58)
[2019-11-01] MEDS: pneumococcal (23 valent) SDV 0.5 mL IM (10:42)
[2019-11-01] MEDS: aspirin 325 mg Tablet PO (10:42)
--- NOTE | 2019-11-01 14:03 | PC.RESP ---
Patient given information on Smoking Cessation and Pulmonary Rehab.
--- NOTE | 2019-11-01 17:21 | P.CONIM_ITS ---
Providers/Reason For Consult Consulting Physican/Specialty*: ENT Reason for Consult*: Dysphagia Attending Physician: Esther Pires MD Primary Care Provider: TAZ Iverson History of Present Illness History of Present Illness Phyllis Chopra is a 48 year old female Review of Systems Const: Denies: fever, chills, fatigue or malaise Eyes: Denies: change in vision or blurry vision ENMT: Denies: nasal congestion Card: Reports: chest pain, lightheadedness and pre-syncope; Denies: palpitations or irregular heart rhythm Resp: Denies: shortness of breath, productive cough, non-productive cough or wheezing GI: Denies: abdominal pain, nausea, vomiting, vomiting blood, diarrhea, constipation, blood in stool or black tarry stool : Denies: flank pain, painful urination or urinary frequency Musc: Denies: neck pain or back pain Skin/Breast: Denies: rash Neuro: Denies: headache, dizziness or vertigo Psych: Denies: anxiety or depression Endo: Denies: excessive urination or excessive thirst Meds/Allergies Home Medications and Allergies Home Medications Medication Instructions Recorded Confirmed Type cetirizine 10 mg capsule 10 mg PO DAILY cap 09/24/19 10/31/19 History diphenhydramine HCl 25 mg tablet 25 mg PO Q6H PRN 09/24/19 10/31/19 History hydrochlorothiazide 12.5 mg tablet 12.5 mg PO QAM PRN 09/24/19 10/31/19 History lisinopril 20 mg tablet 20 mg PO BID 09/24/19 10/31/19 History metoprolol succinate 100 mg 100 mg PO Q24H each 09/24/19 10/31/19 History capsule sprinkle, ext. release 24 hr aspirin 81 mg tablet,delayed 81 mg PO ONCE 09/28/19 10/31/19 History release acetaminophen [Tylenol] 325 mg PO QID PRN 10/31/19 10/31/19 History ranitidine HCl 150 mg PO BID 10/31/19 10/31/19 History Allergies Allergy/AdvReac Type Severity Reaction Status Date / Time No Known Allergies Allergy Verified 11/01/19 02:25 Current Medications Current Medications Generic Name Dose Route Start Last Admin Trade Name Freq PRN Reason Stop Dose Admin Aspirin 325 mg 11/01/19 09:00 11/01/19 10:42 Aspirin PO 325 mg DAILY CHRISTAL Administration Atorvastatin Calcium 40 mg 11/01/19 01:51 11/01/19 10:41 Lipitor PO 40 mg DAILY CHRISTAL Administration Enoxaparin Sodium 40 mg 11/01/19 01:51 11/01/19 02:19 Lovenox SUBCUT 40 mg Q24H CHRISTAL Administration Lisinopril 20 mg 11/01/19 09:00 11/01/19 10:41 Prinivil PO 20 mg BID CHRISTAL Administration Metoprolol Succinate 100 mg 11/01/19 09:00 11/01/19 10:41 Toprol Xl PO 100 mg DAILY CHRISTAL Administration Pantoprazole Sodium 40 mg 11/01/19 09:00 11/01/19 10:47 Protonix PO Not Given DAILY CHRISTAL PFSH Acute PFSH: Medical History Anxiety and depression Chondromalacia, right knee COPD (chronic obstructive pulmonary disease) Dilated cardiomyopathy Left flank tenderness Lumbar pain on palpation Lumbar paraspinal muscle spasm Memory change Osteoarthritis Peptic ulcer SVT (supraventricular tachycardia) Surgical History H/O arthroscopic knee surgery H/O tubal ligation H/O: hysterectomy History of delivery Family History Other Cancer Diabetes Heart disease Social History Smoking and tobacco status: current every day smoker cigarettes Packs smoked per day: 0.5 (PPD) Quit status (tobacco): not considering quitting Alcohol intake: never Current occupational status: unemployed Vitals/I&O/Wt Last Vital Signs Temp 98.0 F 11/01/19 07:58 Pulse 90 11/01/19 15:42 Resp 15 11/01/19 15:42 BP 103/54 11/01/19 15:42 Pulse Ox 93 11/01/19 15:42 11/01/19 11/01/19 11/01/19 06:59 14:59 22:59 Intake Total 50 / 50 480 / 480 1000 / 1480 Balance 50 / 50 480 / 480 1000 / 1480 Weight last 48 hrs Weight 280 lb Physical Exam Narrative: EXAM NARRATIVE: Const: Const: The patient is in no apparent d istress, average body habitus, oriented x3, no limitations and healthy appearing GENERAL APPEARANCE: Cooperative, comfortable, well kempt and well developed ORIENTATION/CONSCIOUSNESS: Awake, oriented to person, oriented to place and oriented to time HENMT: Normocephalic, head/scalp atraumatic, head and scalp normal to inspection, FACE & SINUS: Normal facial exam, sinuses nontender and face symmetric NOSE: external nose normal, nares normal, no nasal polyps, nasal mucous membranes and turbinates normal and septum deviated EXTERNAL EAR: External ears normal EXTERNAL AUDITORY CANAL: EAC's normal TYMPANIC MEMBRANE: TM's normal bilaterally HEARING: Normal to whisper AU ORAL CAVITY: Oral and palatal mucosa normal, lip normal, tongue normal, salivary glands and ducts normal and moist mucous membranes abnormal OROPHARYNX: Oropharynx normal, uvula midline HYPOPHARYNX AND LARYNX: The posterior and lateral pharyngeal myers normal, pyrifirm sinuses normal. Endo and exo laryngeal structures normal. Vocal cord mobility normal. Of note the larynx and hypopharynx were examined with the flexible fiberoptic nasopharyngoscope secondary to gag reflex and to allow proper visualization ([id number]). Eye: PERRL, EOMs intact bilaterally, conjunctivae normal, no scleral icterus and normal visual morfin by confrontation. Alignment normal, periorbital findings normal, eyelids normal, conjunctivae normal, sclerae normal, corneas normal. Neck/C-Spine: Full ROM, no lymphadenopathy in levels I-IV, supple, no meningeal signs, no JVD and thyroid normal GENERAL: THYROID: Thyroid normal Lymph: LYMPHATIC: No lymphedema noted Chest: Inspection of chest normal Resp: Normal respiratory effort, no retractions, no use of accessory muscles and clear to auscultation bilaterally AUSCULTATION: Clear to auscultation bilaterally Cardio: No JVD, RRR Neuro: Oriented x3 and CN's II-XII intact bilaterally except as above SENSORIUM/ORIENTATION: Oriented to person, place and time. Psych: Mental status grossly normal, thought process normal, cooperative, speech normal and denies suicidal ideation APPEARANCE: Grossly normal and well kempt ATTITUDE: Calm and engaged SPEECH: Normal speech THOUGHT PROCESS: Normal thought process JUDGEMENT: Judgment good Skin: No rashes or lesions noted except as above, no wounds, skin turgor normal, no jaundice, no petechiae and no mottling. TRAUMA: No lacerations or abrasions HAIR: Normal NAILS: Normal A&P Assessment and plan (1) Chronic GERD: Status: Acute Code(s): K21.9 - Gastro-esophageal reflux disease without esophagitis (2) Dysphagia: Status: Acute Qualifiers: Dysphagia type: esophageal phase Qualified Code(s): R13.10 - Dysphagia, unspecified Code(s): R13.10 - Dysphagia, unspecified Additional A&P Information I have discussed my treatment plan with the patient. Based on the escalation of her symptoms I think a repeat endoscopy would be reasonable. I will see her in the office on Friday at 11:15 and schedule a EGD. Coding Level of Care Code Acute Global Chief Experience Officer for Chg Fwd Diagnoses Chronic GERD K21.9 Dysphagia R13.10 Dysphagia type: esophageal phase
--- NOTE | 2019-11-01 19:18 | PC.NURSE ---
pt insists on leaving unit to smoke cigarettes.offered nicotine patch-refused..says.. it doesnt work .instructed in dangers of smoking and her health.pt verb understanding...but insists on smoking.
[2019-11-01] MEDS: albuterol 8 gm MDI 2 PUFF INHALATION (20:50)
--- NOTE | 2019-11-01 22:14 | PC.NURSE ---
patient states she takes 100 mg of Metoprolol ER BID. in her medlist it was set to on time and in current MAR is 1 time a day. patient is emphatic she has to take it twice a day, theyre not regulaing her heart theyre trying to fix it she says. Also she is complaining about her brocos feeling like their filling up or closing. i didnt hear wheezing at the time or crackles when assessed her earlier about 8 but shes still saying she has that feeling. says that Dr. Mora gave her three prescriptions yesterday to strt taking, (pro air inhaler, doxycycline 100mg, and prednisone 10 mg andree to take for this and was told they couldnt give them to her until the doctor puts them in her mar from her current med list. Im notifying the on-call doc Dr. Shanon farah to discuss and see if they can be added to her regime or come and talk to the patient.
[2019-11-01] MEDS: predniSONE 20 mg Tablet 60 MG PO (22:56)
[2019-11-01] MEDS: doxycycline 100 mg Tablet PO (22:56)
[2019-11-02] VITALS (53 sets, daily range): BP systolic 110–111; BP diastolic 52–62; PULSE 66–95; RESP 13–25; TEMP 36.7–36.9; O2SAT 90–93
[2019-11-02] MEDS: enoxaparin 40 mg/0.4 mL Syringe SUBCUT (01:26)
[2019-11-02 04:03] LABS: Basophils # 0.1 10^3/uL (0.0-0.1); Basophils % 0.5 %; Eosinophils % 0.2 %; Hematocrit 37.6 % (37.0-47.0); Hemoglobin 11.6 g/dL (11.5-15.3); Lymphocytes # 1.7 10^3/uL (0.8-4.8); Lymphocytes % 18.1 %; Mean Corpuscular HGB Conc 30.9 g/dL (30.0-36.0); Mean Corpuscular Hemoglobin 25.1 pg (28.0-34.0); Mean Corpuscular Volume 81.4 fL (81-99); Monocytes # 0.2 10^3/uL (0.2-0.9); Monocytes % 2.3 %; Neutrophils # 7.3 10^3/uL (1.8-7.7); Neutrophils % 78.3 %; Nucleated Red Blood Cells % 0 %; Platelet Count 325 10^3/cmm (130-400); Red Blood Count 4.62 10^6/uL (4.1-5.3); Red Cell Distribution Width 15.9 % (12.1-15.1); White Blood Count 9.4 10^3/uL (4.0-10.0)
[2019-11-02 04:10] LABS: Alanine Aminotransferase 15 U/L (0-33); Alkaline Phosphatase 117 IU/L (35-105); Anion Gap 18.6 (5-19); Aspartate Amino Transferase 19 U/L (0-32); Blood Urea Nitrogen 16 mg/dL (6-20); Calcium 10.7 mg/dL (8.5-10.5); Carbon Dioxide 21 mmol/L (22-29); Chloride 101 mmol/L (98-107); Globulin 3.3 g/dL (1.3-4.6); Glomerular Filtration Rate 58.7 mL/min (90-130); Glucose 255 mg/dL (65-115); Magnesium 1.9 mg/dL (1.7-2.3); Phosphorus 3.1 mg/dL (2.5-4.5); Potassium 4.6 mmol/L (3.5-5.1); Sodium 136 mmol/L (136-145); Total Bilirubin 0.2 mg/dL (0.15-1.2); Total Protein 7.3 g/dL (6.6-8.7)
--- NOTE | 2019-11-02 08:37 | P.DS_ITS ---
Discharge Providers Date of Admission: 10/31/19 23:00 Date of Discharge: November 02, 2019 Attending Provider at Admission: Gigi Zepeda MD Attending Provider at Discharge: Esther Pires MD Primary Care Provider: TAZ Iverson Diagnoses at Discharge Discharge Diagnosis (1) Chest pain: Status: Acute Problem details: -has had recurrent episodes of chest pain; given her presentation and history are more suspicious that this is GI rather than cardiac related -has had extensive workup done including negative nuclear stress test in 09/2019 and Holter monitoring which showed baseline normal sinus rhythm with frequent PVCs -last Echo (06/2018): EF=45-50%, G1DD, mild global LV hypokinesis, trace MR, trace-mild TR, trace WA; repeat Echo: EF=60%, G1DD, no RWMA, trace TR -troponins noted with negative delta of 5 -no noted ischemic changes on ECG -telemetry monitoring -VSS; continue to monitor -PUJA -may need to discuss with cardiology given persistent symptoms -D-dimer-0.64, CTA negative for PE -abd US: negative for gallbladder pathology, mild hepatic steatosis -noted TSH, lipid panel, A1c (6.8) -continue statin -appreciate Dr. Nicole's consult; outpatient EGD Qualifiers: Chest pain type: unspecified Qualified Code(s): R07.9 - Chest pain, unspecified (2) Pre-syncope: Status: Acute Problem details: -suspicious for BPPV -carotid US: bilateral ICA stenosis < 50% -PT evaluation -fall precautions -meclizine PRN -not anemic, no evidence of dehydration, not hypoglycemic -orthostatics negative Other Information Additional DC diagnoses/information: -Morbid obesity: BMI-39 kg/m2 -Chronic smoker -GERD, chronic dysphagia; has been f/u with Dr. Nicole, continue PPI -HTN; continue oral antihypertensives -Chronic diastolic CHF; no acute exacerbation; last Echo (06/2018): EF=45-50%, G1DD, mild global LV hypokinesis, trace MR, trace-mild TR, trace WA -Anxiety/depression -hx of SVT s/p ablation -hx of ischemic cardiomyopathy -NIDDM type II; A1c-6.8 Reason for Visit Reason for Visit: Reason For Visit: chest pain, sob Hospital Course Hospital Course: Patient was admitted to cardiac step down unit and placed on telemetry monitoring. She had ACS r/o workup though her symptoms seem more consistent with GI etiology rather than cardiac origin. I discussed the case with Dr. Nicole who will see the patient in clinic tomorrow to schedule an outpatient EGD for further evaluation. Patient has reported her apprehension about switching from omeprazole to pantoprazole due to possible adverse effects so would like to return to taking a combination of omeprazole and ranitidine as this has worked for her in the past. She has had cardiac workup in the past including chemical stress testing and Holter monitoring, all of which was negative. She had an Echo and carotid US done during this hospital stay as noted above. She will be discharged home today with her meds as listed below. She is instructed to seek medical attention immediately if symptoms worsen. If GI workup is negative, may need to consider further cardiac workup which would likely include coronary angiogram. Discharge Summary: Patient to follow up with primary care provider within 1 week Patient to follow up with Dr. Nicole tomorrow as scheduled at 11:15 a.m. to schedule outpatient EGD. Physical Exam Const: COMMON NORMALS: no apparent distress and oriented x3 GENERAL APPEARANCE: cooperative and comfortable NUTRITIONAL APPEARANCE: obese morbidly obese ORIENTATION/CONSCIOUSNESS: Yes awake HENMT: COMMON NORMALS: normocephalic, head/scalp atraumatic, hearing grossly normal bilaterally and moist oral mucous membranes HEAD & SCALP: normocephalic and atraumatic Eye: COMMON NORMALS: PERRL, EOMs intact bilaterally and conjunctivae normal CONJUNCTIVA: Yes conjunctivae normal PUPIL: Yes PERRL Neck/C-Spine: COMMON NORMALS: full ROM GENERAL: Yes normal visual inspection and Yes trachea midline Chest: COMMONS NORMALS: inspection of chest normal CHEST: Yes tenderness sternum Resp: COMMON NORMALS: normal respiratory effort, no retractions and no use of accessory muscles EFFORT & INSPECTION: Yes able to speak in complete sentences, Yes symmetric chest movement and No tachypneic AUSCULTATION: diminished lung sounds Cardio: COMMON NORMALS: regular rate, regular rhythm, S1 normal heart sound, S2 normal heart sound and no murmurs RATE: regular rate RHYTHM: regular rhythm HEART SOUNDS: S1 normal and S2 normal GI: COMMON NORMALS: normal to inspection, nondistended, normoactive bowel sounds and soft to palpation PALPATION: Yes soft, Yes tender, No guarding and No rigid Extremity: COMMON NORMALS: normal to inspection, full ROM and no clubbing, cyanosis or edema; negative for no pedal edema Neuro: COMMON NORMALS: oriented x3, moves all extremities, no focal motor deficits, no sensory deficits noted and gait normal Psych: COMMON NORMALS: mental status grossly normal, thought process normal, cooperative, affect normal and speech normal SPEECH: Yes normal speech THOUGHT PROCESS: normal thought process Skin: COMMON NORMALS: no rashes or lesions noted, no jaundice, no petechiae and no mottling GENERAL SKIN EXAM: no rashes or lesions noted Discharge Data Data Completed and Pending: Completed Studies During Hospitalization Category Date Time Status CT angio chest PE protcl [id number] Stat Cat Scan 10/31/19 21:59 Completed CV carotid duplex BI* [id number] Routine Ultrasound 11/01/19 01:51 Completed CV echo complete* [id number] Routine Ultrasound 11/01/19 01:51 Completed US abdomen limite d [id number] Routine Ultrasound 11/01/19 01:51 Completed Pending at discharge Category Date Time Status Complete Blood Co unt w/Auto AM LABS Lab 11/03/19 04:00 Ordered Complete Blood Co unt w/Auto AM LABS Lab 11/04/19 04:00 Ordered Comprehensive Met abolic Panel AM LA BS Lab 11/03/19 04:00 Ordered Comprehensive Met abolic Panel AM LA BS Lab 11/04/19 04:00 Ordered Magnesium AM LABS Lab 11/03/19 04:00 Ordered Magnesium AM LABS Lab 11/04/19 04:00 Ordered Phosphorus AM LAB S Lab 11/03/19 04:00 Ordered Phosphorus AM LAB S Lab 11/04/19 04:00 Ordered Labs from last 24 hours 11/02/19 11/02/19 03:19 03:19 WBC 9.4 RBC 4.62 Hgb 11.6 Hct 37.6 MCV 81.4 MCH 25.1 L MCHC 30.9 RDW 15.9 H Plt Count 325 MPV 10.0 Neut % (Auto) 78.3 Lymph % (Auto) 18.1 Davis % (Auto) 2.3 Eos % (Auto) 0.2 Baso % (Auto) 0.5 Neut # (Auto) 7.3 Lymph # (Auto) 1.7 Davis # (Auto) 0.2 Eos # (Auto) 0.0 Baso # (Auto) 0.1 Nucleated RBC % (a uto) 0 Nucleated RBCs # 0.0 Sodium 136 Potassium 4.6 Chloride 101 Carbon Dioxide 21 L Anion Gap 18.6 BUN 16 Creatinine 1.0 H GFR Calculation 58.7 L Glucose 255 H Calcium 10.7 H Phosphorus 3.1 Magnesium 1.9 Total Bilirubin 0.2 AST 19 ALT 15 Alkaline Phosphata se 117 H Total Protein 7.3 Albumin 4.0 Globulin 3.3 Vitals: Last Vital Signs Temp 98.0 F 11/02/19 07:44 Pulse 66 11/02/19 07:44 Resp 17 11/02/19 07:44 BP 111/52 11/02/19 07:44 Pulse Ox 90 11/02/19 07:44 Discharge Plan Discharge Patient Disposition: Home, Self-Care Condition: Stable Prescriptions: Continued aspirin [Adult Aspirin Regimen] 81 mg tablet,delayed release (DR/EC) 81 mg PO ONCE RF: 0 Zyrtec 10 mg capsule 10 mg PO DAILY RF: 0 metoprolol succinate 100 mg capsule,sprinkle,ER 24hr 100 mg PO BID RF: 0 lisinopril 20 mg tablet 20 mg PO BID RF: 0 hydrochlorothiazide 12.5 mg tablet 12.5 mg PO QAM PRN (Reason: SWELLING) RF: 0 diphenhydramine HCl [Benadryl Allergy] 25 mg tablet 25 mg PO Q6H PRN (Reason: ALLERGIES) RF: 0 acetaminophen [Tylenol] 325 mg Tablet 325 mg PO QID PRN (Reason: Pain) RF: 0 ranitidine HCl 150 mg Tablet 150 mg PO BID RF: 0 doxycycline hyclate 100 mg capsule 100 mg PO BID 10 Days Qty: 20 RF: 0 prednisone 10 mg tablets,dose pack See Rx Instructions .ROUTE .COMPLEX Qty: 21 RF: 0 albuterol sulfate 90 mcg/actuation HFA aerosol inhaler 2 inh INHALATION Q4H PRN (Reason: shortness of breath or wheezing) Qty: 6.7 RF: 0 Discontinued pantoprazole 40 mg tablet,delayed release (DR/EC) 40 mg PO DAILY 42 Days RF: 0 Discharge Orders: Discharge Order (Routine); Ordered 11/02/19 Ordered By: Esther Pires Referrals: Finesse Nicole MD [Physician] - 11/03/19 11:15 am (You have an appointment with Dr. Nicole tomorrow, FridayNovember 03 at 11:15a.m. To schedule an EGD. If, you have any questions. Please [phone]) rBian Mary FNP-C [Primary Care Provider] - 4-7 days (You have an follow- up appointment with Brian MCGHEE on November 08 at 10;40a.m. If, you have any questions or need to reschedule. Please, call ) Discharge Diet: Cardiac Discharge Activity: Resume usual activity Patient Instructions: Chest Pain (DC), Syncope (DC), Hypertension (DC), Chest Pain Stoplight Discharge Date/Time: 11/02/19 13:41 Discharge Attestations Time Spent in Discharge Care*: greater than 30 min Specific Discharge Activities: Specific discharge activities: educating patient, discussing with oil field caser/social workers/dc planners, documenting/other paperwork and evaluating patient/reviewing data Time Spent in Smoking Cessation: Time spent discussing smoking cessation with patient: 3 to 10 minutes Details of Smoking Cessation Education: Explained need for smoking cessation particularly in light of her symptoms including increased risk of coronary artery disease as well as worsening GERD Status at Discharge: Cognitive status at discharge: cognitively intact , Behavioral status at discharge: cooperative , Functional status at discharge: independent ambulation Overall status at discharge: patient is back to baseline Quality Metrics Clinical Quality Measures During this hospital stay, did patient experience: None Coding Level of Care Code Acute Automation And Controls Instructor for g Fwd Exam Comprehensive Diagnoses Chest pain R07.9 Chest pain type: unspecified Pre-syncope R55
--- NOTE | 2019-11-02 09:29 | PM.PN ---
Subjective Subjective: Interval history: She is doing well and is going to be discharged today. She is still having intermittent difficulty swallowing. She is also continuing to have some atypical chest pain. Vitals/I&O/Wt Last Vital Signs Temp 98.0 F 11/02/19 07:44 Pulse 66 11/02/19 07:44 Resp 17 11/02/19 07:44 BP 111/52 11/02/19 07:44 Pulse Ox 90 11/02/19 07:44 11/01/19 11/02/19 11/02/19 22:59 06:59 14:59 Intake Total 1240 / 1720 240 / 240 Balance 1240 / 1720 240 / 240 Weight last 48 hrs Weight 280 lb Physical Exam Narrative: EXAM NARRATIVE: Const: The patient is in no apparent distress, average body habitus, oriented x3, no limitations and healthy appearing GENERAL APPEARANCE: Cooperative, comfortable, well kempt and well developed ORIENTATION/CONSCIOUSNESS: Awake, oriented to person, oriented to place and oriented to time HENMT: Normocephalic, head/scalp atraumatic, head and scalp normal to inspection, FACE & SINUS: Normal facial exam, sinuses nontender and face symmetric NOSE: external nose normal, nares normal, no nasal polyps, nasal mucous membranes and turbinates normal and septum deviated EXTERNAL EAR: External ears normal EXTERNAL AUDITORY CANAL: EAC's normal TYMPANIC MEMBRANE: TM's normal bilaterally HEARING: Normal to whisper AU ORAL CAVITY: Oral and palatal mucosa normal, lip normal, tongue normal, salivary glands and ducts normal and moist mucous membranes abnormal OROPHARYNX: Oropharynx normal, uvula midline Eye: PERRL, EOMs intact bilaterally, conjunctivae normal, no scleral icterus and normal visual morfin by confrontation. Alignment normal, periorbital findings normal, eyelids normal, conjunctivae normal, sclerae normal, corneas normal. Neck/C-Spine: Full ROM, no lymphadenopathy in levels I-IV, supple, no meningeal signs, no JVD and thyroid normal GENERAL: THYROID: Thyroid normal Lymph: LYMPHATIC: No lymphedema noted Chest: Inspection of chest normal Resp: Normal respiratory effort, no retractions, no use of accessory muscles and clear to auscultation bilaterally AUSCULTATION: Clear to auscultation bilaterally Cardio: No JVD, RRR Neuro: Oriented x3 and CN's II-XII intact bilaterally except as above SENSORIUM/ORIENTATION: Oriented to person, place and time. Psych: Mental status grossly normal, thought process normal, cooperative, speech normal and denies suicidal ideation APPEARANCE: Grossly normal and well kempt ATTITUDE: Calm and engaged SPEECH: Normal speech THOUGHT PROCESS: Normal thought process JUDGEMENT: Judgment good Skin: No rashes or lesions noted except as above, no wounds, skin turgor normal, no jaundice, no petechiae and no mottling. TRAUMA: No lacerations or abrasions HAIR: Normal NAILS: Normal Data : 11/02/19 03:19 11/02/19 03:19 A&P Assessment and plan (1) Dysphasia: Status: Acute Code(s): R47.02 - Dysphasia Additional A&P Information I have arranged follow-up on Friday. We will proceed with an endoscopy as soon as we can obtain some surgical time. I am hoping this will assist with her further care and delineate the underlying etiology of her atypical chest pain. Attestations Medical Necessity Statement*: Continued follow-up needed. Coding Level of Care Code Acute Merchandise Carrier for Britt Mcrae Diagnoses Dysphasia R47.02
--- NOTE | 2019-11-02 10:09 | PC.CHAP ---
Pastoral Care Encounter/Spiritual Assessment Type of Contact [] Declined package car driver visit [] Patient/Family/Request visit [] Outpatient visit [] Follow-up visit [] Physician referral [] Code/Alert [x] Routine visit [] Staff referral [] Actively dying [] Patient sleeping [] Family support [] [] Out of room [] Palliative care [] [] Receiving care in room [] Pre-surgical visit [] Trauma [] Long length of stay [] ICU visit [] Other: Sleeping Relational/Emotional Strength [] Patient feels connected with others/family/visitors/staff [] Distress [] Loneliness/isolation [] Abandonment Spirituality of Patient [] Person of Catie [] Attends Sabianism of their Catie [] Believes in Prayer [] Reads Bible or Hinduism materials [] There are Spiritual issues to be addressed Dividing Machine Operator Helper Interventions [] Prayer [] Active listening [] Non-anxious presence [] Spiritual/emotional support [] Crisis/trauma care [] Spiritual counseling [] Bereavement support [] Provided bereavement packet [] Provided Bible/devotional materials [] Provided toy/stuffed animal, coloring book to patient or family member [] Provided Communion [] Anointing/[place] [] Salvation [] Completed spiritual assessment [] Other: Impact on Illness or Injury [] Angry [] Fearful [] Anxious [] Often cries [] Exhaustion [] Unable to work [] Unable to attend zoroastrian [] Unable to walk/stand [] Unable to read [] Unable to drive [] Unable to eat/drink [] Unable to sleep [] Unable to be with family [] Patient intubated [] Other: Summary Dividing Machine Operator Helper attempted visit but patient was sleeping Time spent with patient
--- NOTE | 2019-11-02 10:47 | PC.CHAP ---
Pastoral Care Encounter/Spiritual Assessment Type of Contact [] Declined energy risk management analyst visit [] Patient/Family/Request visit [] Outpatient visit [] Follow-up visit [] Physician referral [] Code/Alert [x] Routine visit [] Staff referral [] Actively dying [] Patient sleeping [] Family support [] [] Out of room [] Palliative care [] [] Receiving care in room [] Pre-surgical visit [] Trauma [] Long length of stay [] ICU visit [] Other: Relational/Emotional Strength [x] Patient feels connected with others/family/visitors/staff [] Distress [] Loneliness/isolation [] Abandonment Spirituality of Patient [x] Person of Catie [] Attends Methodist of their Catie [] Believes in Prayer [] Reads Bible or Quaker materials [x] There are Spiritual issues to be addressed Applications Manager Interventions [] Prayer [x] Active listening [x] Non-anxious presence [x] Spiritual/emotional support [] Crisis/trauma care [x] Spiritual counseling [] Bereavement support [] Provided bereavement packet [] Provided Bible/devotional materials [] Provided toy/stuffed animal, coloring book to patient or family member [] Provided Communion [] Anointing/[place] [] Salvation [] Completed spiritual assessment [] Other: Impact on Illness or Injury [] Angry [] Fearful [] Anxious [] Often cries [] Exhaustion [] Unable to work [] Unable to attend jainism [] Unable to walk/stand [] Unable to read [] Unable to drive [] Unable to eat/drink [] Unable to sleep [] Unable to be with family [] Patient intubated [x] Other: n/a Summary Patient stated she does not attend voodoo jainism because of an anxiousness when in crowds. Patient also declined to be prayed for. Time spent with patient 5 minutes
[2019-11-02] MEDS: aspirin 325 mg Tablet PO (11:12)
[2019-11-02] MEDS: metoprolol succinate ER (24 HR) 100 mg Tablet PO (11:12)
[2019-11-02] MEDS: doxycycline 100 mg Tablet PO (11:12)
[2019-11-02] MEDS: lisinopril 20 mg Tablet PO (11:13)
[2019-11-02] MEDS: atorvastatin 40 mg Tablet PO (11:13)
== END 2019-11-02 13:41 | disposition home or self-care (01) ==
LOC: ER 20:35 → CSU 11-01 00:53
PROVIDERS: Admitting Provider Family Medicine; Emergency Provider Emergency Medicine; Family Provider Nurse Practitioner; PCP Nurse Practitioner; Visit Provider Family Medicine
DX: R47.02 Dysphasia (principal); R07.9 Chest pain, unspecified; R55 Syncope and collapse; I65.23 Occlusion and stenosis of bilateral carotid arteries; E66.01 Morbid (severe) obesity due to excess calories; Z68.39 Body mass index [BMI] 39.0-39.9, adult; F17.210 Nicotine dependence, cigarettes, uncomplicated; K21.9 Gastro-esophageal reflux disease without esophagitis; I10 Essential (primary) hypertension; I50.32 Chronic diastolic (congestive) heart failure; E11.9 Type 2 diabetes mellitus without complications; Z79.82 Long term (current) use of aspirin; J44.9 Chronic obstructive pulmonary disease, unspecified; Z87.11 Personal history of peptic ulcer disease; Z82.49 Family history of ischemic heart disease and other diseases of the circulatory system; M19.90 Unspecified osteoarthritis, unspecified site
CPT/HCPCS: 12345; 36415; 36600; 71275; 76705; 80048; 80053; 80061; 81001; 82803; 83036; 83735; 83880; 84100; 84443; 84484; 85025; 85378; 90471; 90732; 93005; 93306; 93880; 94640; 94664; 96360; 96361; 96372; 96374; 96375; 99284; 99285; G0378; J1650; J2270; J2405; J7030; J7512; Q9967

== ENCOUNTER → 2019-11-03 10:28 | Outpatient (BNVA) | payer MEDICAID, SELFPAY | PROVIDERS: Family Provider Nurse Practitioner; PCP Nurse Practitioner; Visit Provider Otolaryngology | DX: R13.10 Dysphagia, unspecified (principal); K21.9 Gastro-esophageal reflux disease without esophagitis; J35.01 Chronic tonsillitis; J34.3 Hypertrophy of nasal turbinates; R09.82 Postnasal drip; J34.2 Deviated nasal septum; F17.210 Nicotine dependence, cigarettes, uncomplicated | CPT/HCPCS: 96372; 99214 ==

== ENCOUNTER 2019-11-24 00:32 | Inpatient (IN) | payer MEDICAID, SELFPAY ==
[2019-11-24] VITALS (14 sets, daily range): BP systolic 90–141; BP diastolic 48–106; PULSE 79–124; RESP 12–24; TEMP 36.4–37.2; O2SAT 89–98; BMI 39.0
--- NOTE | 2019-11-24 00:39 | ED_ITS ---
HPI - General Adult General: Chief complaint: General Medical Stated complaint: food stuck in throat since 11/21 Time Seen by Provider: 11/24/19 00:38 Source: patient Mode of arrival: ambulatory Limitations: no limitations History of Present Illness: HPI narrative: Patient is a 49-year-old female who presents to ED today with complaints of a possible food bolus. Patient states y esterday while eating a turkey sandwich she noticed immediately after swallowing that she felt a sensation of the sandwich getting stuck. Patient states she has not been able to eat anything following this. She has been able to drink very small amounts of water. She is controlling her own saliva. Patient reports she has had these previously. Patient also has a history of GERD and chronic dysp hagia. She has seen Dr. Nicole several times for this. Onset (ago): day(s) (yesterday) Relieving factors: none Exacerbating factors: eating Associated symptoms: Reports no associated symptoms; Deny chest pain, dyspnea, headache(s), malaise, rash, palpitations or syncope Review of Systems Const: Denies: fever, chills, body aches, change in appetite, change in weight, fatigue or malaise Eyes: Denies: change in vision or blurry vision ENMT: Reports: other (throat fb sensation ); Denies: throat pain, enlarged tonsils, painful swallowing, hoarseness, mouth pain, dry mouth, bad breath or nasal congestion Card: Denies: chest pain, palpitations, irregular heart rhythm, edema, lightheadedness, syncope or pre-syncope Resp: Denies: shortness of breath, productive cough, coughing up blood or chest congestion Musc: Denies: neck pain or back pain Skin/Breast: Denies: rash Neuro: Denies: headache PFS ED PFSH: Medical History Acute non-seasonal allergic rhinitis Anxiety Anxiety and depression Chondromalacia, right knee Controlled diabetes mellitus with hyperglycemia COPD (chronic obstructive pulmonary disease) Dermatitis Deviated septum Dilated cardiomyopathy Dysphagia Dysphasia Environmental and seasonal allergies Eustachian tube dysfunction Hiatal hernia Laryngopharyngeal reflux Left flank tenderness Lumbar pain on palpation Lumbar paraspinal muscle spasm Memory change Nasal turbinate hypertrophy Osteoarthritis Peptic ulcer Postnasal drip SVT (supraventricular tachycardia) Surgical History H/O arthroscopic knee surgery H/O tubal ligation H/O: hysterectomy History of delivery Family History Other Cancer Diabetes Heart disease Social History Smoking and tobacco status: current every day smoker cigarettes Packs smoked per day: 0.5 (PPD) Quit status (tobacco): not considering quitting Second hand smoke exposure: No Smoking risk assessment/counseling performed?: Yes Alcohol intake: never Desire information about alcohol rehabilitation?: No Counseling given: No Desire information about substance/drug rehabilitation?: No Counseling given: No Caregiver/support person: No Lives independently: Yes Household members: children Marital status: Single Number of children: 11 Current occupational status: unemployed History of recent travel: No Current gender identity: Female Physical Exam Const: COMMON NORMALS: no apparent distress, oriented x3, no limitations and alert NUTRITIONAL APPEARANCE: obese HENMT: COMMON NORMALS: normocephalic and head/scalp atraumatic HEAD & SCALP: normocephalic and atraumatic MOUTH: oral and palatal mucosa normal, lip normal and tongue normal THROAT: posterior oropharynx normal, tonsils normal and uvula midline Neck/C-Spine: COMMON NORMALS: full ROM CERVICAL SPINE: Yes cervical ROM normal, No cervical spine tenderness and No paracervical muscle tenderness Resp: COMMON NORMALS: normal respiratory effort and clear to auscultation bilaterally AUSCULTATION: clear to auscultation bilaterally Cardio: COMMON NORMALS: regular rate and regular rhythm RATE: regular rate RHYTHM: regular rhythm Neuro: COMMON NORMALS: oriented x3 SENSORIUM/ORIENTATION: Yes alert Course Consultations: Consultation #1: Dr. Granados Time: 02:29 Consultation #2: Dr. Bond-will come see patient in the ED and admit Time: 02:30 Vital Signs: Vital signs: Vital Signs Temperature 97.6 F 11/24/19 00:40 Pulse Rate 103 H 11/24/19 00:40 Respiratory Rate 18 11/24/19 00:40 Blood Pressure 126/70 11/24/19 00:40 Pulse Oximetry 97 11/24/19 00:40 MDM - General Adult MDM Narrative: Medical decision making narrative: Patient was treated with IV Ativan/Glucagon and Nitropaste without relief. PO challenge was performed and patient was able to hold down a very small amount of water. She tried to eat a cracker and immediately felt like it got stuck and began coughing and dry heaving. Spoke to Dr. Adrian who recommended we speak to general surgery for co nsultation as Dr. Nicole is not manager corporate responsibility. I spoke to Dr. Granados who stated that Dr. Nicole does have several OR cases scheduled for tomorrow and recommended that the hospitalist consult with him tomorrow morning (since Corey has seen her several times previously) but if Corey is not available for the surgery he would be more than happy to consult/intervene on patient. Discharge Plan Discharge Patient Disposition: Placed in Observation Admit Provider: Galileo Bond Clinical Impression: Esophageal obstruction due to food impaction Condition: Stable Referrals: Brian Mary, DATA ENTRY ASSISTANT-C [Primary Care Provider] - Coding Level of Care Code ED Bobtail Driver for Chg Fwd Exam Detailed
--- NOTE | 2019-11-24 00:49 | XRR_ITS ---
PROCEDURE INFORMATION: Exam: XR Soft Tissue Neck Exam date and time: 11/24/2019 1:21 AM Age: 49 years old Clinical indication: Other: Choked on sandwich 26 hours ago; Prior surgery; Surgery type: Dilation esophagus; Additional info: Food stuck in throat TECHNIQUE: Imaging protocol: XR of the soft tissues of the neck. COMPARISON: CT neck w con* [id number] 07/13/2019 11:00 PM FINDINGS: Airway: Normal. No abnormal narrowing. Soft tissues: No radiopaque or radiolucent foreign body identified. Bones/joints: Unremarkable. Dental: Edentulous maxilla and mandible. XR/XR soft tissue neck [id number] IMPRESSION: No radiopaque or radiolucent foreign body identified.
[2019-11-24] MEDS: nitroglycerin 1 gm/inch oint Pkt 1 INCH TOPICAL (01:07)
[2019-11-24] MEDS: LORazepam 2 mg/mL INJ 1 mL 1 MG IVP (01:10)
--- NOTE | 2019-11-24 02:22 | XRR_ITS ---
PROCEDURE INFORMATION: Exam: XR Chest, 1 View Exam date and time: 11/24/2019 2:57 AM Age: 49 years old Clinical indication: Cough; Additional info: Cough/congestion, shortness of breath TECHNIQUE: Imaging protocol: XR of the chest Views: Frontal portable upright view of the chest. COMPARISON: CR XR chest 1V portable [id number] 10/31/2019 5:01 PM FINDINGS: Tubes, catheters and devices: EKG leads are present overlying the chest. Lungs: The lungs are clear bilaterally. The pulmonary vasculature is normal. Pleural space: No pleural effusion. No pneumothorax. Heart/Mediastinum: The heart is normal in size and contour. Mediastinum: Stable. Bones/joints: Stable. XR/XR chest 1V portable [id number] IMPRESSION: No acute cardiopulmonary abnormality identified.
--- NOTE | 2019-11-24 02:22 | ECG_ITS ---
Measurements Intervals [employer] Rate: 102 P: 36 OH: 152 QRS: -37 QRSD: 88 T: 6 QT: 340 QTc: 443 SINUS TACHYCARDIA INDETERMINATE AXIS LOW QRS VOLTAGE IN PRECORDIAL LEADS [QRS DEFLECTION < 1.0 mV IN CHEST LEADS] POSSIBLE RIGHT VENTRICULAR CONDUCTION DELAY [RSR (QR) IN V1/V2] POSSIBLE ANTERIOR MYOCARDIAL INFARCTION , PROBABLY OLD [30 ms Q WAVE IN V3/V4, OR R < 0.2 mV IN V4] INFERIOR MYOCARDIAL INFARCTION , PROBABLY OLD [40+ ms Q WAVE AND/OR ST/T ABNORMALITY IN II/aVF] Compared to ECG 10/31/2019 23:41:10 Indeterminate axis now present Sinus rhythm no longer present Myocardial infarct finding still present Electronically Signed On 11-24-2019 9:07:45 CDT by Haile Mattson M.D. [email or web address]
--- NOTE | 2019-11-24 02:25 | P.HP_ITS ---
Providers/Chief Complaint Primary Care Provider: EARNEST Iverson-C Chief Complaint: food stuck in throat since 11/21 History of Present Illness Phyllis Chopra is a 49 year old female who has been seen by Dr. Nicole for dysphagia to solids and liquids with odynophagia, she was scheduled for an EGD on 11/30, she was counseled to eat liquid diet or mechanically soft. She has a Holter device for SVT monitoring, she was in her usual state of health until 36 hours ago when she was eating a turkey sandwich. She was trying to chew her b ites very well and then swallow but unfortunately experienced extreme pain when her bite got stuck, she tried to drink water afterwards which she regurgitated right away, she has been spitting a lot of saliva as well, whenever she is trying to talk she gets bouts of cough on and off. She is denying fever, chills, weight loss, night sweats. As per the patient there was an esophageal polyp in the past that was never biopsied. She is denying history of colon cancer or esophageal cancer in the family. She came in today because of her worsening symptoms.Diagnostics in ER revealed normal electrolytes, normal blood sugar, soft tissue neck imaging has been obtained. Review of Systems Const: Denies: fever, chills, body aches or fatigue Eyes: Denies: change in vision ENMT: Reports: throat pain, painful swallowing, dry mouth and bad breath; Denies: oral sores/lesions or bleeding gums Card: Reports: chest pain; Denies: palpitations, irregular heart rhythm, edema or swelling of feet/ankles Resp: Denies: shortness of breath GI: Reports: nausea; Denies: abdominal pain, vomiting, vomiting blood or coffee grounds in vomit : Denies: flank pain Musc: Denies: neck pain Skin/Breast: Denies: rash Neuro: Denies: headache Psych: Denies: anxiety Endo: Denies: excessive urination [place]/Lymph: Denies: easy bruising All/Imm: Denies: hives Medications/Allergies Allergies Allergy/AdvReac Type Severity Reaction Status Date / Time No Known Allergies Allergy Verified 11/03/19 11:13 PFSH Acute PFSH: Medical History Acute non-seasonal allergic rhinitis Anxiety Anxiety and depression Chondromalacia, right knee Controlled diabetes mellitus with hyperglycemia COPD (chronic obstructive pulmonary disease) Dermatitis Deviated septum Dilated cardiomyopathy Dysphagia Dysphasia Environmental and seasonal allergies Eustachian tube dysfunction Hiatal hernia Laryngopharyngeal reflux Left flank tenderness Lumbar pain on palpation Lumbar paraspinal muscle spasm Memory change Nasal turbinate hypertrophy Osteoarthritis Peptic ulcer Postnasal drip SVT (supraventricular tachycardia) Surgical History H/O arthroscopic knee surgery H/O tubal ligation H/O: hysterectomy History of delivery Family History Other Cancer Diabetes Heart disease Social History Smoking and tobacco status: current every day smoker cigarettes Packs smoked per day: 0.5 (PPD) Quit status (tobacco): not considering quitting Second hand smoke exposure: No Smoking risk assessment/counseling performed?: Yes Alcohol intake: never Desire information about alcohol rehabilitation?: No Counseling given: No Desire information about substance/drug rehabilitation?: No Counseling given: No Caregiver/support person: No Lives independently: Yes Household members: children Marital status: Single Number of children: 11 Current occupational status: unemployed History of recent travel: No Current gender identity: Female Vitals/I&O/Wt Last Vital Signs Temp 97.6 F 11/24/19 00:40 Pulse 103 H 11/24/19 00:40 Resp 18 11/24/19 00:40 BP 126/70 11/24/19 00:40 Pulse Ox 97 11/24/19 00:40 Weight last 48 hrs Weight 127.006 kg Physical Exam Narrative: EXAM NARRATIVE: Is a very pleasant obese female sitting at the bedside in distress because of food stuck in her esophagus S1, S2 no sinus tachycardia or signs of heart failure Hemodynamically she is stable Abdomen soft, distended, obese obesity, halitosis, EOMI, PERRLA No lower extremity edema Appropriate mood and affect Skin does not show any sign ischemia gangrene or ulcer Alert oriented x3, GCS 15 Data : 11/24/19 02:30 A&P Assessment and plan (1) Esophageal obstruction due to food impaction: Status: Acute Code(s): K22.2 - Esophageal obstruction; T18.128A - Food in esophagus causing other injury, initial encounter Additional A&P Information Esophageal obstruction due to food impaction N.p.o. D5 half-normal saline fluid resuscitation Dr. Granados has been consulted, he has recommended a chest x-ray He is denying any fever, weight loss, history of cancer in the family, she is a strong past medical history of peptic ulcer disease with a esophageal polyps which apparently was not biopsied in the past SVT and palpitations: She is wearing a Holter monitor, Recent stress test did not show any cardiac etiology for her chest pain hence she was referred for ENT evaluation She was scheduled for an EGD on 11/30 Patient has a history of SVT ablation in 2003 Dilated cardiomyopathy Reduced ejection fraction which has improved from 40 to 60% with grade 1 diastolic dysfunction Nonischemic cardiomyopathy Hold p.o. meds Hold lisinopril for schedule EGD Full code N.p.o. Protonix 40 daily Attestations Medical Necessity Statement*: Needs inpatient care for esophageal food impaction, needs EGD Time Spent in Patient Care: 40 Coding Level of Care Code Acute Sack Sorter for [facility] Fwd Diagnoses Esophageal obstruction due to food impaction K22.2; T18.128A
[2019-11-24 02:47] LABS: Basophils # 0.1 10^3/uL (0.0-0.1); Basophils % 0.4 %; Eosinophils # 0.2 10^3/uL (0.0-0.8); Eosinophils % 1.5 %; Hematocrit 38.4 % (37.0-47.0); Lymphocytes # 3.8 10^3/uL (0.8-4.8); Lymphocytes % 28.7 %; Mean Corpuscular HGB Conc 31.3 g/dL (30.0-36.0); Mean Corpuscular Hemoglobin 25.2 pg (28.0-34.0); Mean Corpuscular Volume 80.5 fL (81-99); Mean Platelet Volume 9.9 fL (7.4-10.4); Monocytes # 0.6 10^3/uL (0.2-0.9); Monocytes % 4.5 %; Neutrophils # 8.6 10^3/uL (1.8-7.7); Neutrophils % 64.6 %; Nucleated Red Blood Cells % 0 %; Platelet Count 314 10^3/cmm (130-400); Red Blood Count 4.77 10^6/uL (4.1-5.3); Red Cell Distribution Width 16.6 % (12.1-15.1); White Blood Count 13.3 10^3/uL (4.0-10.0)
[2019-11-24 03:03] LABS: Alanine Aminotransferase 14 U/L (0-33); Albumin Level 4.2 g/dL (3.5-5.2); Alkaline Phosphatase 102 IU/L (35-105); Anion Gap 15.8 (5-19); Aspartate Amino Transferase 17 U/L (0-32); Blood Urea Nitrogen 11 mg/dL (6-20); Calcium 9.9 mg/dL (8.5-10.5); Carbon Dioxide 22 mmol/L (22-29); Chloride 103 mmol/L (98-107); Globulin 3.2 g/dL (1.3-4.6); Glucose 143 mg/dL (65-115); Osmolality Calculated 283 mOsm/kg (285-295); Potassium 3.8 mmol/L (3.5-5.1); Sodium 137 mmol/L (136-145); Total Bilirubin 0.3 mg/dL (0.15-1.2); Total Protein 7.4 g/dL (6.6-8.7)
[2019-11-24 03:07] LABS: Add Urine Microscopic? NO
[2019-11-24 03:11] LABS: Bilirubin Urine Neg (NEGATIVE); Blood Urine Neg (Negative); Glucose Urine UA Norm (Normal); Ketones Urine 1+ (Negative); Leukocyte Esterase Urine Negative (Negative); Nitrate Urine Negative (Negative); Protein Urine Neg (Negative); Specific Gravity, Urine 1.025 (1.005-1.030); Urine Appearance Clear (CLEAR); Urine Color Yellow (Yellow); Urobilinogen Urine Norm (Negative); pH Urine 5 (5-7)
[2019-11-24] MEDS: dextrose 5%-lactated ringers 1,000 ML 30 ML IV (03:58)
[2019-11-24] MEDS: pantoprazole 40 mg SDV IVP (09:35)
--- NOTE | 2019-11-24 13:06 | PC.CHAP ---
Pastoral Care Encounter/Spiritual Assessment Type of Contact [] Declined clinical safety manager visit [] Patient/Family/Request visit [] Outpatient visit [] Follow-up visit [] Physician referral [] Code/Alert [] Routine visit [] Staff referral [] Actively dying [] Patient sleeping [] Family support [] [] Out of room [] Palliative care [] [] Receiving care in room [] Pre-surgical visit [] Trauma [] Long length of stay [] ICU visit [] Other: Relational/Emotional Strength [] Patient feels connected with others/family/visitors/staff [] Distress [] Loneliness/isolation [] Abandonment Spirituality of Patient [] Person of Catie [] Attends Zoroastrianism of their [place] [] Believes in Prayer [] Reads Bible or Scientology materials [] There are Spiritual issues to be addressed Blood Tester Interventions [] Prayer [] Active listening [] Non-anxious presence [] Spiritual/emotional support [] Crisis/trauma care [] Spiritual counseling [] Bereavement support [] Provided bereavement packet [] Provided Bible/devotional materials [] Provided toy/stuffed animal, coloring book to patient or family member [] Provided Communion [] Anointing/[place] [] Salvation [] Completed spiritual assessment [] Other: Impact on Illness or Injury [] Angry [] Fearful [] Anxious [] Often cries [] Exhaustion [] Unable to work [] Unable to attend alevism [] Unable to walk/stand [] Unable to read [] Unable to drive [] Unable to eat/drink [] Unable to sleep [] Unable to be with family [] Patient intubated [] Other: Summary patient sleep Time spent with patient
--- NOTE | 2019-11-24 14:36 | ANES.PREANE2 ---
Pre-Anesthetic Assessment Pre-Anesthetic Assessment: Height/Weight: Height 1.8 m Weight 127.006 kg Temp Pulse Resp BP Pulse Ox 98.0 F 84 18 104/66 98 11/24/19 14:26 11/24/19 14:26 11/24/19 14:26 11/24/19 14:26 11/24/19 14:26 Proposed Procedure: Operation Date: 11/24/19 15:00 Proposed Procedures p EGD(Not Applicable) - Finesse Nicole MD Was Beta Ankit taken within 24 hours: Yes Social: Social History: Tobacco and No tobacco Exam: Pre-Anes Outpt Exam: alert, oriented x 3, clear to auscultation bilaterally and regular rate & rhythm Airway: Submandibular: WNL Cervical ROM: WNL MP: 2 Dentition: False Pulmonary: Pulmonary: COPD CV/HEM: CV/HEM: Arrythmia : : None reported Hepatic: Hepatic: None reported GI: GI: GERD Metabolic: Metabolic: DM Musc/skel: Musc/skel: None reported Neuropsych: Neuropsych: Anxiety Anesthetic Plan: ASA status: 3E Other: RSI Risk of > 500 ml blood loss (7ml/kg in children): No Meds/Allergies Current Medications: Current Medications Generic Name Dose Route Start Last Admin Trade Name Freq PRN Reason Stop Dose Admin Dextrose/Lactated Ringer's 1,000 mls @ 30 ml s/hr 11/24/19 03:50 11/24/19 03:58 Dextrose 5%-Lact ated Ringers IV 30 mls/hr .Q24H CHRISTAL Administration Pantoprazole Sodiu m 40 mg 11/24/19 09:00 11/24/19 09:35 Protonix IVP 40 mg DAILY CHRISTAL Administration PFSH Anesthesia PFSH: Medical History Acute non-seasonal allergic rhinitis Anxiety Anxiety and depression Chondromalacia, right knee Controlled diabetes mellitus with hyperglycemia COPD (chronic obstructive pulmonary disease) Dermatitis Deviated septum Dilated cardiomyopathy Dysphagia Dysphasia Environmental and seasonal allergies Eustachian tube dysfunction Hiatal hernia Laryngopharyngeal reflux Left flank tenderness Lumbar pain on palpation Lumbar paraspinal muscle spasm Memory change Nasal turbinate hypertrophy Osteoarthritis Peptic ulcer Postnasal drip SVT (supraventricular tachycardia) Surgical History H/O arthroscopic knee surgery H/O tubal ligation H/O: hysterectomy History of delivery Family History Other Cancer Diabetes Heart disease Social History Smoking and tobacco status: current every day smoker cigarettes Packs smoked per day: 0.5 (PPD) Quit status (tobacco): not considering quitting Second hand smoke exposure: No Smoking risk assessment/counseling performed?: Yes Alcohol intake: never Desire information about alcohol rehabilitation?: No Counseling given: No Desire information about substance/drug rehabilitation?: No Counseling given: No Caregiver/support person: No Lives independently: Yes Household members: children Marital status: Single Number of children: 11 Current occupational status: unemployed History of recent travel: No Current gender identity: Female Data Anesthesia CBC & Chem 7: 11/24/19 02:30 11/24/19 02:30 Other Labs: Laboratory Results - last 48 hr 11/24/19 11/24/19 11/24/19 02:30 02:30 02:47 WBC 13.3 H RBC 4.77 Hgb 12.0 Hct 38.4 MCV 80.5 L MCH 25.2 L MCHC 31.3 RDW 16.6 H Plt Count 314 MPV 9.9 Neut % (Auto) 64.6 Lymph % (Auto) 28.7 [place] % (Auto) 4.5 Eos % (Auto) 1.5 Baso % (Auto) 0.4 Neut # (Auto) 8.6 H Lymph # (Auto) 3.8 [place] # (Auto) 0.6 Eos # (Auto) 0.2 Baso # (Auto) 0.1 Nucleated RBC % (auto) 0 Nucleated RBCs # 0.0 Sodium 137 Potassium 3.8 Chloride 103 Carbon Dioxide 22 Anion Gap 15.8 BUN 11 Creatinine 0.9 GFR Calculation 66.0 L Glucose 143 H Calculated Osmolality 283 L Calcium 9.9 Total Bilirubin 0.3 AST 17 ALT 14 Alkaline Phosphatase 102 Total Protein 7.4 Albumin 4.2 Globulin 3.2 Urine Color Yellow Urine Appearance Clear Urine pH 5 Ur Specific [place] 1.025 Urine Protein Neg Urine Glucose (UA) Norm Urine Ketones 1+ H Urine Blood Neg Urine Nitrate Negative Urine Bilirubin Neg Urine Urobilinogen Norm Ur Leukocyte Esterase Negative Cardiac Studies: Holter Monitor 10/08/19
[2019-11-24] MEDS: sodium chloride 0.9% 1,000 ML 30 ML IV (14:51)
--- NOTE | 2019-11-24 15:49 | P.CONIM_ITS ---
Providers/Reason For Consult Consulting Physican/Specialty*: Ear nose and throat Reason for Consult*: Food stuck in esophagus Attending Physician: Galileo Bond MD Primary Care Provider: TAZ Iverson History of Present Illness History of Present Illness Phyllis Chopra is a 49 year old female who is known to me. She has dysphagia for solids and liquids and I had planned on performing an EGD for further evaluation on 12/01/2019. She had been previously hospitalized and I saw her in the hospital. This last hospitalization was for a noncardiac chest pain/cardiac chest pain work-up. She states that she was trying to swallow slowly but got food stuck and regurgitated. She feels like there is still something there. Review of Systems General: Reports: 10 or more systems reviewed and unremarkable except in HPI and below Const: Reports: fatigue; Denies: fever, chills or change in weight Eyes: Reports: blurry vision and seeing flashes; Denies: eye discomfort or other (watery/itchy eyes ) ENMT: Reports: throat pain, painful swallowing and hoarseness; Denies: ear pain, change in hearing, tinnitus, disequilibrium, nasal congestion, post nasal drip, facial/sinus pain or other (Loss of smell/taste ) Card: Reports: chest pain, palpitations, syncope and leg pain with exertion; Denies: irregular heart rhythm, swelling of feet/ankles or other (sweating at night) Resp: Reports: shortness of breath, productive cough and wheezing; Denies: non-productive cough or coughing up blood GI: Reports: abdominal pain, nausea, difficulty swallowing and heartburn/indigestion : Reports: urinary frequency; Denies: painful urination Musc: Reports: muscle weakness; Denies: joint pain or muscle cramps Skin/Breast: Denies: rash or itching Neuro: Reports: headache, numbness in extremities, weakness in extremities and other (Sleep apnea); Denies: seizure-like activity Psych: Reports: depression, irritability and memory loss; Denies: other (Physchiatric Disorder) Endo: Denies: cold intolerance, heat intolerance or change in body appearance [place]/Lymph: Denies: easy bruising, easy bleeding or enlarged lymph nodes All/Imm: Denies: other (Environmental Allergy ) Meds/Allergies Home Medications and Allergies Home Medications Medication Instructions Recorded Confirmed Type diphenhydramine HCl 25 mg tablet 25 mg PO Q6H PRN 09/24/19 11/24/19 History lisinopril 20 mg tablet 20 mg PO BID 09/24/19 11/24/19 History metoprolol succinate 100 mg 100 mg PO BID each 09/24/19 11/24/19 History capsule sprinkle, ext. release 24 hr aspirin 81 mg tablet,delayed 81 mg PO ONCE 09/28/19 11/24/19 History release acetaminophen [Tylenol] 325 mg PO QID PRN 10/31/19 11/24/19 History albuterol sulfate 2 inh INHALATION Q4H PRN #6.7 gm 10/31/19 11/24/19 Rx prednisone See Rx Instructions .ROUTE 10/31/19 11/24/19 Rx .COMPLEX #21 each ranitidine HCl 150 mg PO BID 10/31/19 11/24/19 History atorvastatin 10 mg tablet 10 mg PO DAILY #30 tab 11/08/19 11/24/19 Rx buspirone 15 mg tablet 15 mg PO BID@08,16 #60 tab 11/08/19 11/24/19 Rx cetirizine 10 mg tablet 10 mg PO DAILY #30 tab 11/08/19 11/24/19 Rx furosemide 20 mg tablet 20 mg PO QAM PRN #30 tab 11/08/19 11/24/19 Rx metformin 500 mg tablet,extended 1,000 mg PO DAILY #60 tab 11/08/19 11/24/19 Rx release 24hr nitroglycerin 0.4 mg sublingual 0.4 mg SUBLINGUAL Q5M PRN #25 tab 11/08/19 11/24/19 Rx tablet Allergies Allergy/AdvReac Type Severity Reaction Status Date / Time No Known Allergies Allergy Verified 11/03/19 11:13 Current Medications Current Medications Generic Name Dose Route Start Last Admin Trade Name Freq PRN Reason Stop Dose Admin Dextrose/Lactated Ringer's 1,000 mls @ 30 mls/hr 11/24/19 03:50 11/24/19 03:58 Dextrose 5%-Lactated Ringers IV 30 mls/hr .Q24H CHRISTAL Administration Sodium Chloride 1,000 mls @ 30 mls/hr 11/24/19 14:45 11/24/19 14:51 Sodium Chloride 0.9% IV 11/25/19 14:44 30 mls/hr .Q24H CHRISTAL Administration Pantoprazole Sodium 40 mg 11/24/19 09:00 11/24/19 09:35 Protonix IVP 40 mg DAILY CHRISTAL Administration PFSH Acute PFSH: Medical History Acute non-seasonal allergic rhinitis Anxiety Anxiety and depression Chondromalacia, right knee Controlled diabetes mellitus with hyperglycemia COPD (chronic obstructive pulmonary disease) Dermatitis Deviated septum Dilated cardiomyopathy Dysphagia Dysphasia Environmental and seasonal allergies Eustachian tube dysfunction Hiatal hernia Laryngopharyngeal reflux Left flank tenderness Lumbar pain on palpation Lumbar paraspinal muscle spasm Memory change Nasal turbinate hypertrophy Osteoarthritis Peptic ulcer Postnasal drip SVT (supraventricular tachycardia) Surgical History H/O arthroscopic knee surgery H/O tubal ligation H/O: hysterectomy History of delivery Family History Other Cancer Diabetes Heart disease Social History Smoking and tobacco status: current every day smoker cigarettes Packs smoked per day: 0.5 (PPD) Quit status (tobacco): not considering quitting Second hand smoke exposure: No Smoking risk assessment/counseling performed?: Yes Alcohol intake: never Desire information about alcohol rehabilitation?: No Counseling given: No Desire information about substance/drug rehabilitation?: No Counseling given: No Caregiver/support person: No Lives independently: Yes Household members: children Marital status: Single Number of children: 11 Current occupational status: unemployed History of recent travel: No Current gender identity: Female Vitals/I&O/Wt Last Vital Signs Temp 98.0 F 11/24/19 14:26 Pulse 84 11/24/19 14:26 Resp 18 11/24/19 14:26 BP 104/66 11/24/19 14:26 Pulse Ox 98 11/24/19 14:26 Weight last 48 hrs Weight 280 lb Physical Exam Narrative: EXAM NARRATIVE: Const: Const: The patient is in no apparent distress, average body habitus, oriented x3, no limitations and healthy appearing GENERAL APPEARANCE: Cooperative, comfortable, well kempt and well developed ORIENTATION/CONSCIOUSNESS: Awake, oriented to person, oriented to place and oriented to time HENMT: Normocephalic, head/scalp atraumatic, head and scalp normal to inspection, FACE & SINUS: Normal facial exam, sinuses nontender and face symmetric NOSE: external nose normal, nares normal, no nasal polyps, nasal mucous membranes and turbinates normal and septum deviated EXTERNAL EAR: External ears normal EXTERNAL AUDITORY CANAL: EAC's normal TYMPANIC MEMBRANE: TM's normal bilaterally HEARING: Normal to whisper AU ORAL CAVITY: Oral and palatal mucosa normal, lip normal, tongue normal, salivary glands and ducts normal and moist mucous membranes abnormal OROPHARYNX: Oropharynx normal, uvula midline HYPOPHARYNX AND LARYNX: The posterior and lateral pharyngeal myers normal, pyrifirm sinuses normal. Endo and exo laryngeal structures normal. Vocal cord mobility normal. Of note the larynx and hypopharynx were examined with the flexible fiberoptic nasopharyngoscope secondary to gag reflex and to allow proper visualization ([id number]). Eye: PERRL, EOMs intact bilaterally, conjunctivae normal, no scleral icterus and normal visual morfin by confrontation. Alignment normal, periorbital findings normal, eyelids normal, conjunctivae normal, sclerae normal, corneas normal. Neck/C-Spine: Full ROM, no lymphadenopathy in levels I-IV, supple, no meningeal signs, no JVD and thyroid normal GENERAL: THYROID: Thyroid normal Lymph: LYMPHATIC: No lymphedema noted Chest: Inspection of chest normal Resp: Normal respiratory effort, no retractions, no use of accessory muscles and clear to auscultation bilaterally AUSCULTATION: Clear to auscultation bilaterally Cardio: No JVD, RRR Neuro: Oriented x3 and CN's II-XII intact bilaterally except as above SENSORIUM/ORIENTATION: Oriented to person, place and time. Psych: Mental status grossly normal, thought process normal, cooperative, speech normal and denies suicidal ideation APPEARANCE: Grossly normal and well kempt ATTITUDE: Calm and engaged SPEECH: Normal speech THOUGHT PROCESS: Normal thought process JUDGEMENT: Judgment good Skin: No rashes or lesions noted except as above, no wounds, skin turgor normal, no jaundice, no petechiae and no mottling. TRAUMA: No lacerations or abrasions HAIR: Normal NAILS: Normal A&P Assessment and plan (1) Esophageal obstruction due to food impaction: Status: Acute Code(s): K22.2 - Esophageal obstruction; T18.128A - Food in esophagus causing other injury, initial encounter Additional A&P Information Will perform EGD today. I discussed the goals risks and alternatives and informed consent was obtained. 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
--- NOTE | 2019-11-24 16:24 | PM.OP ---
Operative Report Date of procedure: November 24, 2019 Pre-op Diagnosis: Dysphasia Post-op diagnosis: same Post-op Findings: No food bolus identified Procedure Done: Gastroduodenoscopy Pathology: none sent Surgeon: Finesse Nicole Anesthesia: General Estimated blood loss (mL): 0 Complications: None Findings: No food bolus identified Condition: stable Disposition: PACU Brief History: Phyllis is a 49-year-old female that was eating and a piece of food stuck in her esophagus. Procedure: The patient was taken to the operating room and under satisfactory general endotracheal anesthesia of the esophagoscope was introduced into the post cricoid area. During intubation of the esophagus a clear visualization of the piriform sinus and endo and exo-larynx confirmed no food in this area. The esophagus stomach and duodenum were examined no food bolus was identified. Procedure was terminated the patient tolerated the procedure well. She was allowed awaken and taken to recovery room where she was observed when she met discharge criteria she was transferred back to the floor in satisfactory and stable condition.
--- NOTE | 2019-11-24 16:25 | PM.PACU ---
PACU note Post-Anesthesia Exam: somnolent, arousable and vital signs stable Disposition: back to floor
--- NOTE | 2019-11-24 16:27 | SUR.PHASEI ---
1622 PATIENT TO PACU AT THIS TIME. RR EVEN AND UNLABORED, DRY COUGH NOTED. PATIENT DENIES PAIN.
--- NOTE | 2019-11-24 16:47 | PC.NURSE ---
Physician consult to Dr. Nielson cancelled per Dr. Nielson request d/t Dr. Nicole being consulted.
--- NOTE | 2019-11-24 16:48 | SUR.PHASEI ---
1637 PATIENT TO MED SURG AT THIS TIME. RR EVEN AND UNLABORED. DENIES PAIN. PATIENT AMBULATORY FROM [facility] [place] TO BED WITH STEADY GAIT. THIS NURSE REMAINED WITH PATIENT UNTIL 1645.
--- NOTE | 2019-11-24 17:16 | ECG_ITS ---
Measurements Intervals [place] Rate: 80 P: 42 CT: 123 QRS: -41 QRSD: 104 T: 2 QT: 407 QTc: 470 SINUS RHYTHM MARKED LEFT AXIS DEVIATION [QRS AXIS < -30] Compared to ECG 11/24/2019 02:38:53 Left-axis deviation now present Sinus tachycardia no longer present Indeterminate axis no longer present Myocardial infarct finding no longer present Electronically Signed On 11-24-2019 19:35:15 CDT by Haile Mattson M.D. [id number]
--- NOTE | 2019-11-24 17:55 | PM.PN ---
Subjective Subjective: Interval history: This afternoon patient developed central chest pressure discomfort after she had endoscopy and as I was told esophagus was clear without evidence of food impaction/obstruction. She denies associated nausea, diaphoresis and shortness of breath but does report pleuritic component every time she coughs. Reports that her chest pains has been going on off and on for many years and usually last 2 to 10 minutes. This episode went away 5 minutes later. She reports that previously she had extensive evaluation of her chest pains which deemed to be noncardiac. She does not recall having coronary angiogram. She is diabetic and reports smoking three quarters of a pack for many years. Vitals/I&O/Wt Last Vital Signs Temp 98.1 F 11/24/19 16:35 Pulse 117 H 11/24/19 16:35 Resp 16 11/24/19 16:35 BP 127/70 11/24/19 16:35 Pulse Ox 96 11/24/19 16:35 11/24/19 11/24/19 11/24/19 06:59 14:59 22:59 Intake Total 0 / 0 Output Total 0 / 0 Balance 0 / 0 Weight last 48 hrs Weight 127.006 kg Physical Exam Const: COMMON NORMALS: no apparent distress and oriented x3 Resp: COMMON NORMALS: normal respiratory effort and clear to auscultation bilaterally AUSCULTATION: clear to auscultation bilaterally Cardio: COMMON NORMALS: regular rate, regular rhythm and S2 normal heart sound RATE: regular rate RHYTHM: regular rhythm HEART SOUNDS: S2 normal OTHER: No lower extremity edema GI: COMMON NORMALS: normal to inspection, nondistended, normoactive bowel sounds, soft to palpation and non-tender PALPATION: Yes soft Neuro: COMMON NORMALS: oriented x3 and no focal motor deficits Data : 11/24/19 02:30 11/24/19 02:30 A&P Assessment and plan (1) Esophageal obstruction due to food impaction: Status: Acute Code(s): K22.2 - Esophageal obstruction; T18.128A - Food in esophagus causing other injury, initial encounter Additional A&P Information Esophageal obstruction due to food impaction Discussed with Dr. Nielson and since patient was seen by Dr. Nicole we will discontinue consult for Dr. Granados. SVT and palpitations: She is wearing a Holter monitor, Recent stress test did not show any cardiac etiology for her chest pain hence she was referred for ENT evaluation for suspected oropharyngeal dysphagia. Patient has a history of SVT ablation in 2003 Dilated cardiomyopathy Reduced ejection fraction which has improved from 40 to 60% with grade 1 diastolic dysfunction Nonischemic cardiomyopathy (patient does not recall having coronary angiogram before) Chronic chest pain syndrome. Previously felt to be noncardiac. Suggestive of costochondritis given chronic pleuritic component Dyslipidemia Diabetes mellitus type 2 Hypertension PLAN: Obtain EKG and trend troponin. Patient is slightly hypotensive from procedure. We will give 1 L of LR. We will avoid nitroglycerin at this point especially since patient is pain-free now. Restart her metoprolol. Patient is being seen by our cardiology clinic and recently was initiated on paper cleaner for frequent PVCs and history of SVTs. Attestations Medical Necessity Statement*: Patient with chest pain requires observation for monitoring, treatment evaluation. Coding Level of Care Code Acute Global Engineering Manager for Chg Fwd Diagnoses Esophageal obstruction due to food impaction K22.2; T18.128A
[2019-11-24 18:25] LABS: Troponin(5th) Baseline 11 ng/mL (0-10)
--- NOTE | 2019-11-24 19:16 | ECG_ITS ---
Measurements Intervals [place] Rate: 66 P: 42 [place]: 165 QRS: -38 QRSD: 100 T: -17 QT: 409 QTc: 429 SINUS RHYTHM MARKED LEFT AXIS DEVIATION [QRS AXIS < -30] Compared to ECG 11/24/2019 17:29:36 No significant changes Electronically Signed On 11-25-2019 17:24:01 CDT by Haile Mattson M.D. [id number]
--- NOTE | 2019-11-24 19:33 | PC.NURSE ---
pt returned from pacu with a blood pressure of 90/56 dr lazo informed, dr stated pt is to get bolus of 1 liter, pt also began to get chest pain and pain in her back, dr ordered a series of ekg and triponins, as well as a telemonitor. telemonitor applied, ekg performed, and bolus was started.
[2019-11-24 20:09] LABS: Troponin 5 2HR 10.73 ng/mL (0-10)
[2019-11-24 20:10] LABS: Troponin 5 2HR Delta -0.27 ABS# (0-10)
[2019-11-24] MEDS: morphine 4 mg/mL SDV 1 mL 2 MG IVP (21:00)
--- NOTE | 2019-11-24 23:16 | ECG_ITS ---
Measurements Intervals [place] Rate: 74 P: 26 [place]: 130 QRS: -28 QRSD: 97 T: -12 QT: 383 QTc: 427 SINUS RHYTHM BORDERLINE LEFT AXIS DEVIATION [QRS AXIS < -20] NONSPECIFIC T-WAVE ABNORMALITY Compared to ECG 11/24/2019 17:29:36 T-wave abnormality now present Electronically Signed On 11-25-2019 17:23:58 CDT by Haile Mattson M.D. [id number]
[2019-11-25] VITALS (9 sets, daily range): BP systolic 95–156; BP diastolic 61–84; PULSE 73–96; RESP 16–24; TEMP 36.3–36.8; O2SAT 91–96
[2019-11-25 00:05] LABS: Troponin 5 6HR 10.28 ng/mL (0-10)
[2019-11-25 00:06] LABS: Troponin 5 6HR Delta -0.72 ng/L (0-12)
[2019-11-25] MEDS: pantoprazole 40 mg SDV IVP (08:02)
[2019-11-25] MEDS: atorvastatin 40 mg Tablet 20 MG PO (08:17)
[2019-11-25] MEDS: morphine 4 mg/mL SDV 1 mL 2 MG IVP ×2 (08:22→14:00)
--- NOTE | 2019-11-25 11:03 | CT_ITS ---
WS: [id number] CTA CHEST ABDOMEN AND PELVIS TECHNIQUE: Noncontrast plus contrast enhanced CTA of the chest, abdomen, and pelvis with coronal and sagittal reformatted images and additional MIP Images. CLINICAL INFORMATION: Pleuritic pain COMPARISON: CTA chest October 31, 2019 DLP: 2450.[address] scans at [facility] use at least one of these dose optimization techniques: automat ed exposure control; mA and/or kV adjustment per patient size (includes targeted exams where dose is matched to clinical indication); or iterative reconstruction. FINDINGS: Lungs are well aerated. No acute pulmonary infiltrates. No consolidation or pleural fluid. No focal p neumonia. Proximal main pulmonary arteries are normal. Segmental and subsegmental pulmonary arteries are normal . No evidence for pulmonary embolus. Normal caliber thoracic aorta. No mediastinal or hilar lymphaden opathy. Normal endobronchial tree. No axillary lymphadenopathy. Normal liver. Normal portal vein and splenic vein. Normal gallbladder. Normal spleen. Normal GE junct ion. Adrenal glands are normal. Adrenal glands are normal. Normal renal parenchymal enhancement. Tiny right renal cyst. Nonobstructing tiny right renal parenchymal calculus. No hydronephrosis. Normal sigmoid colon. No periaortic lymphadenopathy. No inguinal lymphadenopathy. Normal caliber abdo marizol aorta. CT/CT angio chest w abd pel w con IMPRESSION: 1. No evidence for pulmonary embolus. 2. Normal thoracic and abdominal aorta. 3. No acute pulmonary infiltrates. No focal pneumonia. 4. No mediastinal or hilar lymphadenopathy. 5. No acute findings in the abdomen or pelvis.
--- NOTE | 2019-11-25 11:05 | CT_ITS ---
WS: [id number] CT THORACIC SPINE TECHNIQUE: Contrast-enhanced CT of the thoracic spine with coronal and sagittal reformatted images. CLINICAL INFORMATION: Pain COMPARISON: None. DLP: 2326.[address] scans at [facility] use at least one of these dose optimization techniques: automat ed exposure control; mA and/or kV adjustment per patient size (includes targeted exams where dose is matched to clinical indication); or iterative reconstruction. FINDINGS: Mild thoracic curve. Mild thoracic kyphosis. Hypertrophic changes in the lower thoracic spine. Disc s pace heights and vertebral body heights well-preserved. No acute compression fractures. No high-grade central canal stenosis. No abnormal enhancement. Mild to moderate facet arthropathy in the lower tho racic spine. Visualized lungs are well aerated. CT/CT thoracic spine w con [id number] IMPRESSION: No acute thoracic spine findings
[2019-11-25] MEDS: morphine 4 mg/mL SDV 1 mL IVP (11:22)
--- NOTE | 2019-11-25 12:36 | PM.PN ---
Subjective Subjective: Interval history: Patient states she is having a horrible day. She states that she is in severe pain and points from her head to her knees. She states that she cannot eat and threw up although in the next sentence she states that she was able to eat her eggs this morning. Tells me that she has bronchitis but is unable to take the medicines required treated. Vitals/I&O/Wt Last Vital Signs Temp 97.4 F L 11/25/19 11:39 Pulse 96 11/25/19 11:39 Resp 16 11/25/19 11:39 BP 134/82 11/25/19 11:39 Pulse Ox 96 11/25/19 11:39 11/24/19 11/25/19 11/25/19 22:59 06:59 14:59 Intake Total 100 / 100 175 / 275 480 / 480 Output Total 0 / 0 Balance 100 / 100 175 / 275 480 / 480 Weight last 48 hrs Weight 280 lb Physical Exam Narrative: EXAM NARRATIVE: Const: The patient is in distress, morbidly obese body habitus, oriented x3, lying in bed GENERAL APPEARANCE: Cooperative, complaining of pain ORIENTATION/CONSCIOUSNESS: Awake, oriented to person, oriented to place and oriented to time HENMT: Normocephalic, head/scalp atraumatic, head and scalp normal to inspection, FACE & SINUS: Normal facial exam, sinuses nontender and face symmetric NOSE: external nose normal, nares normal, no nasal polyps, nasal mucous membranes and turbinates normal and septum deviated EXTERNAL EAR: External ears normal EXTERNAL AUDITORY CANAL: EAC's normal TYMPANIC MEMBRANE: TM's normal bilaterally HEARING: Normal to whisper AU ORAL CAVITY: Oral and palatal mucosa normal, lip normal, tongue normal, salivary glands and ducts normal and moist mucous membranes abnormal OROPHARYNX: Oropharynx normal, uvula midline Eye: PERRL, EOMs intact bilaterally, conjunctivae normal, no scleral icterus and normal visual morfin by confrontation. Alignment normal, periorbital findings normal, eyelids normal, conjunctivae normal, sclerae normal, corneas normal. Neck/C-Spine: Full ROM, no lymphadenopathy in levels I-IV, supple, no meningeal signs, no JVD GENERAL: THYROID: Thyroid normal Lymph: LYMPHATIC: No lymphedema noted Chest: Inspection of chest normal Resp: Normal respiratory effort, no retractions, no use of accessory muscles and clear to auscultation bilaterally AUSCULTATION: Clear to auscultation bilaterally Cardio: No JVD, RRR Neuro: Oriented x3 and CN's II-XII intact bilaterally except as above SENSORIUM/ORIENTATION: Oriented to person, place and time. Psych: Mental status grossly normal, thought process normal, cooperative, speech normal and denies suicidal ideation APPEARANCE: Grossly normal and well kempt ATTITUDE: Calm and engaged SPEECH: Normal speech THOUGHT PROCESS: Normal thought process JUDGEMENT: Judgment good Skin: No rashes or lesions noted except as above, no wounds, skin turgor normal, no jaundice, no petechiae and no mottling. TRAUMA: No lacerations or abrasions HAIR: Normal NAILS: Normal Data : 11/24/19 02:30 11/24/19 02:30 A&P Assessment and plan (1) Dysphagia: Discussed my findings with the patient from yesterday's endoscopy. No food bolus was found. Patient has some very dramatic complaints today and there appears to be no organic underlying cause. I will continue her work-up when she is discharged from the hospital. Status: Acute Code(s): R13.10 - Dysphagia, unspecified Attestations Medical Necessity Statement*: Follow-up Coding Level of Care Code Acute [employer] [facility] Fw Diagnoses Dysphagia R13.10
[2019-11-25 12:53] LABS: Basophils % 0.3 %; Eosinophils # 0.1 10^3/uL (0.0-0.8); Eosinophils % 0.6 %; Hematocrit 37.9 % (37.0-47.0); Hemoglobin 12.1 g/dL (11.5-15.3); Lymphocytes # 2.4 10^3/uL (0.8-4.8); Lymphocytes % 23.3 %; Mean Corpuscular HGB Conc 31.9 g/dL (30.0-36.0); Mean Corpuscular Hemoglobin 26.5 pg (28.0-34.0); Mean Corpuscular Volume 83.1 fL (81-99); Mean Platelet Volume 9.8 fL (7.4-10.4); Monocytes # 0.8 10^3/uL (0.2-0.9); Monocytes % 7.4 %; Nucleated Red Blood Cells % 0 %; Platelet Count 268 10^3/cmm (130-400); Red Blood Count 4.56 10^6/uL (4.1-5.3); Red Cell Distribution Width 16.3 % (12.1-15.1); White Blood Count 10.2 10^3/uL (4.0-10.0)
[2019-11-25 13:11] LABS: Alanine Aminotransferase 12 U/L (0-33); Albumin Level 4.2 g/dL (3.5-5.2); Alkaline Phosphatase 103 IU/L (35-105); Anion Gap 18.8 (5-19); Aspartate Amino Transferase 15 U/L (0-32); Blood Urea Nitrogen 11 mg/dL (6-20); Calcium 9.9 mg/dL (8.5-10.5); Carbon Dioxide 21 mmol/L (22-29); Chloride 101 mmol/L (98-107); Globulin 3.1 g/dL (1.3-4.6); Glomerular Filtration Rate 75.6 mL/min (90-130); Glucose 130 mg/dL (65-115); Osmolality Calculated 282 mOsm/kg (285-295); Potassium 3.8 mmol/L (3.5-5.1); Sodium 137 mmol/L (136-145); Total Bilirubin 0.4 mg/dL (0.15-1.2); Total Protein 7.3 g/dL (6.6-8.7)
[2019-11-25 13:34] LABS: Troponin(5th) Baseline 20 ng/mL (0-10)
[2019-11-25] MEDS: iohexol 350 mg/mL 100 mL Btl IV (14:46)
[2019-11-25] MEDS: iohexol 300 mg/mL 100 mL Btl IV (14:52)
[2019-11-25 15:41] LABS: Troponin 5 2HR 16.89 ng/mL (0-10)
[2019-11-25 15:42] LABS: Troponin 5 2HR Delta -3.11 ABS# (0-10)
--- NOTE | 2019-11-25 15:57 | PM.PN ---
Subjective Subjective: Interval history: Patient this morning was very dramatic complaining of pain in her epigastric area radiating to her back. It was pleuritic and that she was unable to move her whole body because of severe pain. She denies being nauseous or diaphoretic. Denies shortness of breath. Morphine did not help and 4 mg additional was ordered without improvement. CT scan of chest/abdomen/pelvis and thoracic spine are unremarkable. She does not want morphine or Toradol and requests Tylenol. Vitals/I&O/Wt Last Vital Signs Temp 98.0 F 11/25/19 15:16 Pulse 75 11/25/19 15:16 Resp 17 11/25/19 15:16 BP 117/76 11/25/19 15:16 Pulse Ox 92 11/25/19 15:16 11/25/19 11/25/19 11/25/19 06:59 14:59 22:59 Intake Total 175 / 275 720 / 720 Balance 175 / 275 720 / 720 Weight last 48 hrs Weight 127.006 kg Physical Exam Const: COMMON NORMALS: no apparent distress and oriented x3 Resp: COMMON NORMALS: normal respiratory effort and clear to auscultation bilaterally AUSCULTATION: clear to auscultation bilaterally Cardio: COMMON NORMALS: regular rate, regular rhythm and S2 normal heart sound RATE: regular rate RHYTHM: regular rhythm HEART SOUNDS: S2 normal OTHER: No lower extremity edema GI: COMMON NORMALS: normal to inspection, nondistended, normoactive bowel sounds and soft to palpation PALPATION: Yes soft OTHER: Tender to even slight palpation. Neuro: COMMON NORMALS: oriented x3 and no focal motor deficits Data : 11/25/19 12:31 11/25/19 12:31 A&P Assessment and plan (1) Esophageal obstruction due to food impaction: Status: Acute Code(s): K22.2 - Esophageal obstruction; T18.128A - Food in esophagus causing other injury, initial encounter Additional A&P Information Esophageal obstruction due to food impaction, resolved Discussed with Dr. Nielson and since patient was seen by Dr. Nicole we will discontinue consult for Dr. Granados. SVT and palpitations: She is wearing a Holter monitor, Recent stress test did not show any cardiac etiology for her chest pain hence she was referred for ENT evaluation for suspected oropharyngeal dysphagia. Patient has a history of SVT ablation in 2003 Dilated cardiomyopathy Reduced ejection fraction which has improved from 40 to 60% with grade 1 diastolic dysfunction Nonischemic cardiomyopathy (patient does not recall having coronary angiogram before) Chronic chest pain syndrome. Previously felt to be noncardiac. Suggestive of costochondritis given chronic pleuritic component Dyslipidemia Diabetes mellitus type 2 Hypertension PLAN: Obtain EKG and trend troponin. Blood pressure is 93/57 therefore will not try nitroglycerin. Start patient on LR. Continue PPI. Consider HIDA scan Will request sestamibi Lexiscan in a.m. Attestations Medical Necessity Statement*: Patient with severe pain requires further inpatient monitoring, treatment and evaluation. Coding Level of Care Code Acute Finance Executive for Chg Fwd Diagnoses Esophageal obstruction due to food impaction K22.2; T18.128A
--- NOTE | 2019-11-25 16:06 | PC.NURSE ---
PAIN MEDS PT REFUSED TORADOL, REQUESTED TYLENOL. STATED SHE DID NOT WISH TO TAKE ANY MORE MORPHINE. PHYSICIAN NOTIFIED.
--- NOTE | 2019-11-25 16:21 | US_ITS ---
WS: [id number] Abdomen ultrasound, 11/25/2019 Clinical Data: Epigastric area pain Comparison: Right upper quadrant ultrasound, 11/01/2019. Findings: The pancreas is partly obscured by bowel gas, but it shows no cyst, pseudocyst or evidence of pancrea titis. The liver shows no cysts, masses or dilated intrahepatic ducts. There is fatty infiltration of the li marilyn, and it measures 17.24 cm in greatest AP diameter. The gallbladder has no stones or sludge. The wall measures 0.2 cm with no pericholecystic fluid. The common bile duct is 0.5 cm and no intraductal abnormalities are noted. The right kidney is 5.13 x 6.18 x 10.5 cm. No cysts, masses or hydronephrosis is seen. The left kidney is 4.61 x 5.36 x 10.4 cm. No cysts, masses or hydronephrosis is seen. The abdominal aorta is not dilated and the inferior vena cava has normal flow. No vascular abnormalit ies are seen. The spleen measures 11.0 cm and there are no intrasplenic masses or capsular abnormalities. US/US abdomen complete* [id number] Impression: Negative abdomen ultrasound.
[2019-11-25] MEDS: lactated ringers 1,000 ML 100 ML IV (16:24)
--- NOTE | 2019-11-25 17:01 | ECG_ITS ---
Measurements Intervals [place] Rate: 73 P: 26 CA: 132 QRS: -26 QRSD: 101 T: -4 QT: 396 QTc: 439 SINUS RHYTHM BORDERLINE LEFT AXIS DEVIATION [QRS AXIS < -20] Compared to ECG 11/24/2019 23:32:10 No significant changes Electronically Signed On 11-26-2019 13:10:43 CDT by Shivani Matute M.D. [email or web address]
--- NOTE | 2019-11-25 17:30 | PC.NURSE ---
pain pt coughed and screamed in pain that she said radiated to chest, neck, throat, arms,back, and upper legs. dr was present in room. refused all pain medication available because she stated nothing works.
--- NOTE | 2019-11-25 17:40 | PC.NURSE ---
Physician rounded to check on and discussed the test results were negative from today. Nurse and nurse in training present at bedside. Physician asked pt if she felt depressed. pt replied, No, I'm not freaking depressed. I don't understand why I am hurting all over and everything was negative. EVERYTHING FREAKING HURTS FROM MY KNEES TO MY THROAT. Physician asked if her joints hurt. Pt Stated, MY KNEES, MY FREAKING UPPER LEGS, MY ABD, MY BACK, MY CHEST,MY ARMS, MY THROAT, I CAN'T SWALLOW PILLS. You think this is all in my head? Physician stated, I'm not saying that this is in your head. I cannot explain what is going on with you medically, all of the test were normal from today. I ordered for you a stress test tomorrow morning. Pt refuses stress test and says she has had one recently and there is nothing wrong with her heart Pt on the phone with family member crying and stating she wants to go home AMA. Stated This is not psychological, my heart is fine. I am not being helped here. I don't need this stress test. Physician notified.
[2019-11-25 17:48] LABS: Troponin 5 6HR 17.64 ng/mL (0-10)
[2019-11-25 17:50] LABS: Troponin 5 6HR Delta -2.36 ng/L (0-12)
[2019-11-26] VITALS: BP 112/75; PULSE 95; RESP 20; TEMP 36.6; O2SAT 94
--- NOTE | 2019-11-26 01:00 | PC.NURSE ---
Patient refused to have IV fluids infusing tonight since we are not giving her steroids for her infected bronchial tubes that are filling up with fluid . She also requested to walk in the halls since she feels she is getting too weak from not moving around. Told patient we would need to walk with her, then this nurse came out of another room and she was out in the ojeda walking alone. Patient escorted back to her room and she ask to be placed on oxygen since she was having such trouble breathing tonight, vital signs are stable. Placed patient on 2 liters. She also refused to wear telemetry tonight and placed herself on her holter monitor. Will continue to monitor patient.
[2019-11-26 04:00] VITALS: BP 102/65; PULSE 76; RESP 20; TEMP 36.9; O2SAT 93
[2019-11-26 05:30] LABS: Basophils % 0.3 %; Eosinophils # 0.1 10^3/uL (0.0-0.8); Eosinophils % 1.2 %; Hematocrit 34.6 % (37.0-47.0); Hemoglobin 10.9 g/dL (11.5-15.3); Lymphocytes # 2.9 10^3/uL (0.8-4.8); Lymphocytes % 39.3 %; Mean Corpuscular HGB Conc 31.5 g/dL (30.0-36.0); Mean Corpuscular Hemoglobin 25.3 pg (28.0-34.0); Mean Corpuscular Volume 80.5 fL (81-99); Mean Platelet Volume 9.8 fL (7.4-10.4); Monocytes # 0.5 10^3/uL (0.2-0.9); Monocytes % 6.6 %; Neutrophils # 3.9 10^3/uL (1.8-7.7); Neutrophils % 52.3 %; Nucleated Red Blood Cells % 0 %; Platelet Count 252 10^3/cmm (130-400); Red Cell Distribution Width 16.3 % (12.1-15.1); White Blood Count 7.4 10^3/uL (4.0-10.0)
[2019-11-26 05:56] LABS: Alanine Aminotransferase 10 U/L (0-33); Alkaline Phosphatase 96 IU/L (35-105); Anion Gap 16.6 (5-19); Aspartate Amino Transferase 16 U/L (0-32); Blood Urea Nitrogen 10 mg/dL (6-20); Calcium 9.8 mg/dL (8.5-10.5); Carbon Dioxide 22 mmol/L (22-29); Chloride 103 mmol/L (98-107); Glomerular Filtration Rate 75.6 mL/min (90-130); Glucose 98 mg/dL (65-115); Osmolality Calculated 282 mOsm/kg (285-295); Potassium 3.6 mmol/L (3.5-5.1); Sodium 138 mmol/L (136-145); Total Bilirubin 0.4 mg/dL (0.15-1.2)
[2019-11-26] MEDS: guaiFENesin 100 mg/5 mL UDC 10 mL 200 MG PO (06:02)
[2019-11-26 07:18] VITALS: BP 107/76; PULSE 73; RESP 18; TEMP 37; O2SAT 96
[2019-11-26] MEDS: pantoprazole 40 mg SDV IVP (08:06)
[2019-11-26] MEDS: atorvastatin 40 mg Tablet 20 MG PO (08:31)
[2019-11-26 11:07] VITALS: BP 120/75; PULSE 83; RESP 20; TEMP 36.8; O2SAT 92
--- NOTE | 2019-11-26 11:27 | P.DS_ITS ---
Discharge Providers Date of Admission: 11/24/19 21:35 Date of Discharge: November 26, 2019 Attending Provider at Admission: Galileo Bond MD Attending Provider at Discharge: Sharif Olsen MD Primary Care Provider: TAZ Iverson Diagnoses at Discharge Discharge Diagnosis (1) Esophageal obstruction due to food impaction: Status: Acute Reason for Visit Reason for Visit: Reason For Visit: food stuck in throat since 11/21 Hospital Course Discharge Summary: Patient presents with Discharge Data Data Completed and Pending: Completed Studies During Hospitalization Category Date Time Status CT angio chest w abd pel w con Rout ine Cat Scan 11/25/19 11:[address] thoracic spine w con [id number] Routi ne Cat Scan 11/25/19 11:05 Completed XR chest 1V joan ble [id number] Urgent Exams 11/24/19 02:22 [place] [id number] Urgent Exams 11/24/19 00:49 Completed US abdomen comple te* [id number] Routine Ultrasound 11/25/19 16:21 Completed Pending at discharge Category Date Time Status Sestamibi Stress Test Request Routi ne Exams 11/25/19 16:00 Ordered Complete Blood Co unt w/Auto AM LABS Lab 11/27/19 04:00 Ordered Complete Blood Co unt w/Auto AM LABS Lab 11/28/19 04:00 Ordered Comprehensive Met abolic Panel AM LA BS Lab 11/27/19 04:00 Ordered Comprehensive Met abolic Panel AM LA BS Lab 11/28/19 04:00 Ordered Labs from last 24 hours 11/26/19 11/26/19 11/25/19 04:32 04:32 17:20 WBC 7.4 RBC 4.30 Hgb 10.9 L Hct 34.6 L MCV 80.5 L MCH 25.3 L MCHC 31.5 RDW 16.3 H Plt Count 252 MPV 9.8 Neut % (Auto) 52.3 Lymph % (Auto) 39.3 [place] % (Auto) 6.6 Eos % (Auto) 1.2 Baso % (Auto) 0.3 Neut # (Auto) 3.9 Lymph # (Auto) 2.9 [place] # (Auto) 0.5 Eos # (Auto) 0.1 Baso # (Auto) 0.0 Nucleated RBC % (a uto) 0 Nucleated RBCs # 0.0 Sodium 138 Potassium 3.6 Chloride 103 Carbon Dioxide 22 Anion Gap 16.6 BUN 10 Creatinine 0.8 GFR Calculation 75.6 L Glucose 98 Calculated Osmolal ity 282 L Calcium 9.8 Total Bilirubin 0.4 AST 16 ALT 10 Alkaline Phosphata se 96 Troponin I 6 Hour 17.64 H Troponin I Hi Sens Del -2.36 L Troponin T Baselin e Troponin T 120 Min [place] Delta Troponin T Total Protein 7.0 Albumin 4.0 Globulin 3.0 11/25/19 11/25/19 11/25/19 15:13 12:31 12:31 WBC RBC Hgb Hct MCV MCH MCHC RDW Plt Count MPV Neut % (Auto) Lymph % (Auto) [place] % (Auto) Eos % (Auto) Baso % (Auto) Neut # (Auto) Lymph # (Auto) [place] # (Auto) Eos # (Auto) Baso # (Auto) Nucleated RBC % (a uto) Nucleated RBCs # Sodium 137 Potassium 3.8 Chloride 101 Carbon Dioxide 21 L Anion Gap 18.8 BUN 11 Creatinine 0.8 GFR Calculation 75.6 L Glucose 130 H Calculated Osmolal ity 282 L Calcium 9.9 Total Bilirubin 0.4 AST 15 ALT 12 Alkaline Phosphata se 103 Troponin I 6 Hour Troponin I Hi Sens Del Troponin T Baselin e 20 H Troponin T 120 Min [place] 16.89 H Delta Troponin T -3.11 L Total Protein 7.3 Albumin 4.2 Globulin 3.1 11/25/19 12:31 WBC 10.2 H RBC 4.56 Hgb 12.1 Hct 37.9 MCV 83.1 MCH 26.5 L MCHC 31.9 RDW 16.3 H Plt Count 268 MPV 9.8 Neut % (Auto) 68.0 Lymph % (Auto) 23.3 [place] % (Auto) 7.4 Eos % (Auto) 0.6 Baso % (Auto) 0.3 Neut # (Auto) 7.0 Lymph # (Auto) 2.4 [place] # (Auto) 0.8 Eos # (Auto) 0.1 Baso # (Auto) 0.0 Nucleated RBC % (a uto) 0 Nucleated RBCs # 0.0 Sodium Potassium Chloride Carbon Dioxide Anion Gap BUN Creatinine GFR Calculation Glucose Calculated Osmolal ity Calcium Total Bilirubin AST ALT Alkaline Phosphata se Troponin I 6 Hour Troponin I Hi Sens Del Troponin T Baselin e Troponin T 120 Min [place] Delta Troponin T Total Protein Albumin Globulin Vitals: Last Vital Signs Temp 98.2 F 11/26/19 11:07 Pulse 83 11/26/19 11:07 Resp 20 H 11/26/19 11:07 BP 120/75 11/26/19 11:07 Pulse Ox 92 11/26/19 11:07 Discharge Plan Discharge Condition: Stable Prescriptions: No Action aspirin [Adult Aspirin Regimen] 81 mg tablet,delayed release (DR/EC) 81 mg PO ONCE RF: 0 furosemide [Lasix] 20 mg tablet 20 mg PO QAM PRN (Reason: edema) Qty: 30 RF: 0 metformin 500 mg tablet extended release 24hr 1,000 mg PO DAILY Qty: 60 RF: 2 cetirizine 10 mg tablet 10 mg PO DAILY Qty: 30 RF: 5 atorvastatin [Lipitor] 10 mg tablet 10 mg PO DAILY Qty: 30 RF: 2 nitroglycerin 0.4 mg tablet, sublingual 0.4 mg SUBLINGUAL Q5M PRN (Reason: chest pain) Qty: 25 RF: 0 buspirone 15 mg tablet 15 mg PO BID@08,16 Qty: 60 RF: 2 metoprolol succinate 100 mg capsule,sprinkle,ER 24hr 100 mg PO BID RF: 0 lisinopril 20 mg tablet 20 mg PO BID RF: 0 diphenhydramine HCl [Benadryl Allergy] 25 mg tablet 25 mg PO Q6H PRN (Reason: ALLERGIES) RF: 0 triamcinolone acetonide 40 mg/mL suspension 40 mg IM ONCE Qty: 1 RF: 0 acetaminophen [Tylenol] 325 mg Tablet 325 mg PO QID PRN (Reason: Pain) RF: 0 ranitidine HCl 150 mg Tablet 150 mg PO BID RF: 0 prednisone 10 mg tablets,dose pack See Rx Instructions .ROUTE .COMPLEX Qty: 21 RF: 0 albuterol sulfate 90 mcg/actuation HFA aerosol inhaler 2 inh INHALATION Q4H PRN (Reason: shortness of breath or wheezing) Qty: 6.7 RF: 0 Referrals: Brian Mary FNP-C [Primary Care Provider] - Discharge Attestations Status at Discharge: Cognitive status at discharge: cognitively intact , Behavioral status at discharge: cooperative , Coding Level of Care Code Acute Form Setter/Driver for Chg Fwd Diagnoses Esophageal obstruction due to food impaction K22.2; T18.519A
--- NOTE | 2019-11-26 11:36 | FL_ITS ---
WS: [id number] MODIFIED BARIUM SWALLOW TECHNIQUE: Modified barium swallow with speech therapy using multiple consistencies. FLUOROSCOPY TIME: 2.7 minutes. CLINICAL INFORMATION: Oropharyngeal dysphagia COMPARISON: None. FINDINGS: Normal oropharyngeal phase. No evidence of aspiration penetration. No difficulties with barium tablet . Moderate esophageal dysmotility with slightly delayed emptying. No visualized stricture. FL/FL barium swallow modifd [id number] IMPRESSION: 1. Normal barium swallow. 2. Mild esophageal dysmotility with slightly delayed emptying.
--- NOTE | 2019-11-26 13:10 | P.DS_ITS ---
Discharge Providers Date of Admission: 11/24/19 21:35 Date of Discharge: November 26, 2019 Attending Provider at Admission: Galileo Bond MD Attending Provider at Discharge: Sharif Olsen MD Primary Care Provider: TAZ Iverson Diagnoses at Discharge Discharge Diagnosis (1) Esophageal obstruction due to food impaction: Status: Acute (2) Chest pain syndrome: Status: Acute Reason for Visit Reason for Visit: Reason For Visit: food stuck in throat since 11/21 Hospital Course Discharge Summary: Patient presented with concerns for food stuck in her throat and esophagus. She was evaluated with endoscopy by Dr. Nicole showing no evidence of food in her esophagus stomach and proximal small bowel. Patient then complained of pleuritic chest pain radiating to her back which was quite severe and dramatic. She then developed pain all over from her neck down to her knees that was rated as severe requesting analgesics. She had small cough during my evaluation after which immediately she held her chest and abdomen and reported severe pain. She told me that she cannot move or walk much yesterday evening but was noted to walk to the bathroom without difficulty. This morning patient reports having trouble swallowing and continues to have pain. Patient denied being depressed and is not interested in further psychiatric evaluation because it is not in my head . She had CT scan showing no acute findings. She refused to have further evaluation of her chest pain with stress test. She had swallow study today performed because she was complaining of not being able to swallow Tylenol and that did not show significant findings. This morning patient requested to go home. She felt strong enough to be dismissed. She reports that she continues to have off-and-on pleuritic chest pain with cough which felt to be related to costochondritis given chronicity. She denies shortness of breath. She reports walking to the bathroom earlier today. She is followed by Dr. Matute at cardiology clinic. Physical Exam Const: COMMON NORMALS: no apparent distress and oriented x3 Resp: COMMON NORMALS: normal respiratory effort and clear to auscultation bilaterally AUSCULTATION: clear to auscultation bilaterally Cardio: COMMON NORMALS: regular rate, regular rhythm and S2 normal heart sound RATE: regular rate RHYTHM: regular rhythm HEART SOUNDS: S2 normal OTHER: No lower extremity edema GI: COMMON NORMALS: normal to inspection, nondistended, normoactive bowel sounds and soft to palpation PALPATION: Yes soft OTHER: Tender throughout Neuro: COMMON NORMALS: oriented x3 and no focal motor deficits Discharge Data Data Completed and Pending: Completed Studies During Hospitalization Category Date Time Status CT angio chest w abd pel w con Rout ine Cat Scan 11/25/19 11:[address] thoracic spine w con [id number] Routi ne Cat Scan 11/25/19 11:05 Completed [place] barium swallow modifd [id number] Rout ine Exams 11/26/19 11:36 Completed XR chest 1V joan ble [id number] Urgent Exams 11/24/19 02:22 [place] [id number] Urgent Exams 11/24/19 00:49 Completed US abdomen comple te* [id number] Routine Ultrasound 11/25/19 16:21 Completed Pending at discharge Category Date Time Status Sestamibi Stress Test Request Routi ne Exams 11/25/19 16:00 Ordered Complete Blood Co unt w/Auto AM LABS Lab 11/27/19 04:00 Ordered Complete Blood Co unt w/Auto AM LABS Lab 11/28/19 04:00 Ordered Comprehensive Met abolic Panel AM LA BS Lab 11/27/19 04:00 Ordered Comprehensive Met abolic Panel AM LA BS Lab 11/28/19 04:00 Ordered Labs from last 24 hours 11/26/19 11/26/19 11/25/19 04:32 04:32 17:20 WBC 7.4 RBC 4.30 Hgb 10.9 L Hct 34.6 L MCV 80.5 L MCH 25.3 L MCHC 31.5 RDW 16.3 H Plt Count 252 MPV 9.8 Neut % (Auto) 52.3 Lymph % (Auto) 39.3 [place] % (Auto) 6.6 Eos % (Auto) 1.2 Baso % (Auto) 0.3 Neut # (Auto) 3.9 Lymph # (Auto) 2.9 [place] # (Auto) 0.5 Eos # (Auto) 0.1 Baso # (Auto) 0.0 Nucleated RBC % (a uto) 0 Nucleated RBCs # 0.0 Sodium 138 Potassium 3.6 Chloride 103 Carbon Dioxide 22 Anion Gap 16.6 BUN 10 Creatinine 0.8 GFR Calculation 75.6 L Glucose 98 Calculated Osmolal ity 282 L Calcium 9.8 Total Bilirubin 0.4 AST 16 ALT 10 Alkaline Phosphata se 96 Troponin I 6 Hour 17.64 H Troponin I Hi Sens Del -2.36 L Troponin T Baselin e Troponin T 120 Min [place] Troponin T Total Protein 7.0 Albumin 4.0 Globulin 3.0 11/25/19 11/25/19 11/25/19 15:13 12:31 12:31 WBC RBC Hgb Hct MCV MCH MCHC RDW Plt Count MPV Neut % (Auto) Lymph % (Auto) [place] % (Auto) Eos % (Auto) Baso % (Auto) Neut # (Auto) Lymph # (Auto) [place] # (Auto) Eos # (Auto) Baso # (Auto) Nucleated RBC % (a uto) Nucleated RBCs # Sodium 137 Potassium 3.8 Chloride 101 Carbon Dioxide 21 L Anion Gap 18.8 BUN 11 Creatinine 0.8 GFR Calculation 75.6 L Glucose 130 H Calculated Osmolal ity 282 L Calcium 9.9 Total Bilirubin 0.4 AST 15 ALT 12 Alkaline Phosphata se 103 Troponin I 6 Hour Troponin I Hi Sens Del Troponin T Baselin e 20 H Troponin T 120 Min [place] 16.89 H Delta Troponin T -3.11 L Total Protein 7.3 Albumin 4.2 Globulin 3.1 Vitals: Last Vital Signs Temp 98.2 F 11/26/19 11:07 Pulse 83 11/26/19 11:07 Resp 20 H 11/26/19 11:07 BP 120/75 11/26/19 11:07 Pulse Ox 92 11/26/19 11:07 Discharge Plan Discharge Patient Disposition: Home, Self-Care Condition: Stable Prescriptions: New omeprazole 20 mg capsule,delayed release(DR/EC) 20 mg PO DAILY 28 Days Qty: 28 RF: 0 Continued aspirin [Adult Aspirin Regimen] 81 mg tablet,delayed release (DR/EC) 81 mg PO ONCE RF: 0 furosemide [Lasix] 20 mg tablet 20 mg PO QAM PRN (Reason: edema) Qty: 30 RF: 0 metformin 500 mg tablet extended release 24hr 1,000 mg PO DAILY Qty: 60 RF: 2 cetirizine 10 mg tablet 10 mg PO DAILY Qty: 30 RF: 5 atorvastatin [Lipitor] 10 mg tablet 10 mg PO DAILY Qty: 30 RF: 2 nitroglycerin 0.4 mg tablet, sublingual 0.4 mg SUBLINGUAL Q5M PRN (Reason: chest pain) Qty: 25 RF: 0 buspirone 15 mg tablet 15 mg PO BID@08,16 Qty: 60 RF: 2 metoprolol succinate 100 mg capsule,sprinkle,ER 24hr 100 mg PO BID RF: 0 lisinopril 20 mg tablet 20 mg PO BID RF: 0 diphenhydramine HCl [Benadryl Allergy] 25 mg tablet 25 mg PO Q6H PRN (Reason: ALLERGIES) RF: 0 triamcinolone acetonide 40 mg/mL suspension 40 mg IM ONCE Qty: 1 RF: 0 acetaminophen [Tylenol] 325 mg Tablet 325 mg PO QID PRN (Reason: Pain) RF: 0 ranitidine HCl 150 mg Tablet 150 mg PO BID RF: 0 albuterol sulfate 90 mcg/actuation HFA aerosol inhaler 2 inh INHALATION Q4H PRN (Reason: shortness of breath or wheezing) Qty: 6.7 RF: 0 Discontinued prednisone 10 mg tablets,dose pack See Rx Instructions .ROUTE .COMPLEX Qty: 21 RF: 0 Discharge Orders: Discharge Order (Routine); Ordered 11/26/19 Ordered By: Sharif Olsen Referrals: Brian Mary, TAZ [Primary Care Provider] - Discharge Diet: Diabetic Discharge Activity: Increase activity as tolerated Activity Restrictions/Additional Instructions: Please call your doctor or present to emergency department if your condition worsens or you develop diarrhea, lightheadedness, fatigue or see blood in your stool or black stool. Please avoid any NSAIDs or steroids as it may worsen your reflux disease and could potentially cause significant side effects. Please follow-up with Dr. Matute as scheduled. Should you continue to have reflux symptoms discussed with your primary care physician as you may require repeat EGD. Please discuss with your primary care physician to check your iron stores as you may require colonoscopy and PRECISION MACHINE OPERATOR examination if your iron levels are low. Discharge Attestations Time Spent in Discharge Care*: greater than 30 min Status at Discharge: Cognitive status at discharge: cognitively intact , Behavioral status at discharge: cooperative , Quality Metrics Clinical Quality Measures During this hospital stay, did patient experience: None Coding Level of Care Code Acute Bobbin Inspector for Chg Fwd Diagnoses Esophageal obstruction due to food impaction K22.2; T18.128A Chest pain syndrome R07.9
[2019-11-26 14:08] VITALS: BP 120/75; PULSE 83; RESP 20; TEMP 36.8; O2SAT 92
== END 2019-11-26 14:23 | disposition home or self-care (01) | DRG 392 ==
LOC: ER 02:30 → MEDSURG 02:52
PROVIDERS: Otolaryngology; Admitting Provider Internal Medicine; Emergency Provider Physician Assistant; Family Provider Nurse Practitioner; PCP Nurse Practitioner; Visit Provider Internal Medicine
PROC: 0DJ08ZZ Inspection of Upper Intestinal Tract, Via Natural or Artificial Opening Endoscopic (ICD-10-PCS; CPT 43235; principal; 2019-11-24 15:00)
DX: K22.2 Esophageal obstruction (principal); I47.1 Supraventricular tachycardia; I42.0 Dilated cardiomyopathy; T18.128A Food in esophagus causing other injury, initial encounter; R07.9 Chest pain, unspecified; F17.210 Nicotine dependence, cigarettes, uncomplicated; R13.10 Dysphagia, unspecified; J44.9 Chronic obstructive pulmonary disease, unspecified; E11.9 Type 2 diabetes mellitus without complications; F41.9 Anxiety disorder, unspecified; K21.9 Gastro-esophageal reflux disease without esophagitis; I49.9 Cardiac arrhythmia, unspecified; E78.5 Hyperlipidemia, unspecified; I10 Essential (primary) hypertension; Z79.811 Long term (current) use of aromatase inhibitors; Z79.82 Long term (current) use of aspirin; Z79.51 Long term (current) use of inhaled steroids; Z79.899 Other long term (current) drug therapy; Z79.84 Long term (current) use of oral hypoglycemic drugs; X58.XXXA Exposure to other specified factors, initial encounter
CPT/HCPCS: 12345; 36415; 70360; 71045; 71275; 72129; 74177; 74230; 76700; 80053; 81003; 84484; 85025; 92611; 93005; 96374; 96375; 99283; C9113; G0378; J0330; J1100; J1610; J2001; J2060; J2270; J2405; J2704; J7030; Q9967

== ENCOUNTER 2019-11-24 00:32 | Emergency (ER) | payer MEDICAID, SELFPAY | END 2019-11-24 03:24 | disposition admitted as inpatient to this hospital (09) | LOC: ER 12-10 12:57 | PROVIDERS: Emergency Provider Physician Assistant; Family Provider Nurse Practitioner; PCP Nurse Practitioner | DX: Z01.89 Encounter for other specified special examinations (principal) ==

== ENCOUNTER 2019-11-24 00:32 | Emergency (ER) | payer MEDICAID, SELFPAY | END 2019-11-24 03:24 | disposition still patient (30) | LOC: ER 12-10 08:28 | PROVIDERS: Emergency Provider Physician Assistant; Family Provider Nurse Practitioner; PCP Nurse Practitioner | DX: Z01.89 Encounter for other specified special examinations (principal) | CPT/HCPCS: 12345; 36415; 70360; 71045; 80053; 81003; 84484; 85025; 93005; 96374; 96375; 99283; 99285; C9113; G0378; J0330; J1610; J2001; J2060; J2270; J2704; J7030 ==

== ENCOUNTER 2019-12-01 08:59 | Day surgery (SDC) | payer MEDICAID, SELFPAY ==
[2019-11-30 12:28] VITALS: BMI 39.0
[2019-12-01] VITALS (12 sets, daily range): BP systolic 90–113; BP diastolic 49–89; PULSE 66–88; RESP 12–20; TEMP 36.6–36.7; O2SAT 92–99
--- NOTE | 2019-12-01 09:12 | W.PM.OPSUD ---
Surgery/Procedure H&P Update DATE OF PROCEDURE: December 01, 2019 DATE H&P PERFORMED: 11/24/19 H&P UPDATE INFORMATION: I have reviewed H&P completed within last 30 days, I have examined patient prior to procedure and No changes to prior documentation PREOP DIAGNOSIS: GERD PLANNED PROCEDURE: Operation Date: 12/01/19 10:40 Proposed Procedures p EGD poss dilation 13816 [id number] 39918 R47.02(Not Applicable) - Finesse Nicole MD s Bronchoscopy w/ bronchoalveolar lavage(Not Applicable) - Finesse Nicole MD
[2019-12-01 09:14] LABS: OR HCG Qualitative Urine Negative (Negative)
[2019-12-01 09:26] LABS: Glucose Point of Care 115 mg/dL (70-110)
[2019-12-01] MEDS: sodium chloride 0.9% 1,000 ML 30 ML IV (09:31)
--- NOTE | 2019-12-01 09:47 | ANES.PREANE2 ---
Pre-Anesthetic Assessment Pre-Anesthetic Assessment: Height/Weight: Height 1.8 m Weight 127.006 kg Temp Pulse Resp BP Pulse Ox 97.8 F 76 18 113/66 99 12/01/19 09:16 12/01/19 09:16 12/01/19 09:16 12/01/19 09:16 12/01/19 09:16 Preop Diagnosis: GERD Proposed Procedure: Operation Date: 12/01/19 10:40 Proposed Procedures p EGD poss dilation 01283 [id number] R47.02(Not Applicable) - Finesse Nicole MD s Bronchoscopy w/ bronchoalveolar lavage(Not Applicable) - Finesse Nicole MD Last intake: Intake Last Liquid Date 11/30/19 Last Liquid Time 23:00 Last Solid Date 11/30/19 Last Solid Time 22:00 Social: Social History: Tobacco Packs per day: 3/4 Pack years: 30+ Exam: Pre-Anes Outpt Exam: alert, oriented x 3, clear to auscultation bilaterally and regular rate & rhythm Airway: Submandibular: WNL Cervical ROM: WNL MP: 1 Dentition: False Pulmonary: Pulmonary: COPD CV/HEM: CV/HEM: HTN Comments: rx'd x 15y sVT Cardiomyopahty 2 blocks mod DAWN GI: GI: GERD Metabolic: Metabolic: DM Comments: started meds 2 weeks ago Musc/skel: Musc/skel: Lower Back Pain (nonradiculopathy) Neuropsych: Neuropsych: RIOS Anesthetic Plan: ASA status: 3 Anesthesia: General Meds/Allergies Current Medications: Current Medications Generic Name Dose Route Start Last Admin Trade Name Freq PRN Reason Stop Dose Admin Sodium Chloride 1,000 mls @ 30 ml s/hr 12/01/19 08:00 12/01/19 09:31 Sodium Chloride 0.9% IV 12/02/19 07:59 30 mls/hr .Q24H CHRISTAL Administration PFSH Anesthesia PFSH: Medical History (Updated 11/27/19 @ 00:00 by ) Acute non-seasonal allergic rhinitis Anxiety Anxiety and depression Chest pain syndrome Chondromalacia, right knee Controlled diabetes mellitus with hyperglycemia COPD (chronic obstructive pulmonary disease) Dermatitis Deviated septum Dilated cardiomyopathy Dysphagia Dysphasia Environmental and seasonal allergies Eustachian tube dysfunction Hiatal hernia Laryngopharyngeal reflux Left flank tenderness Lumbar pain on palpation Lumbar paraspinal muscle spasm Memory change Nasal turbinate hypertrophy Osteoarthritis Peptic ulcer Postnasal drip SVT (supraventricular tachycardia) Surgical History H/O arthroscopic knee surgery H/O tubal ligation H/O: hysterectomy History of delivery Social History Smoking and tobacco status: current every day smoker cigarettes Packs smoked per day: 0.5 (PPD) Quit status (tobacco): not considering quitting Second hand smoke exposure: No Smoking risk assessment/counseling performed?: Yes Alcohol intake: never Desire information about alcohol rehabilitation?: No Counseling given: No Desire information about substance/drug rehabilitation?: No Counseling given: No Caregiver/support person: No Lives independently: Yes Household members: children Marital status: Single Number of children: 11 Current occupational status: unemployed History of recent travel: No Current gender identity: Female Data Anesthesia Other Labs: Laboratory Results - last 48 hr 12/01/19 12/01/19 09:03 09:24 POC Glucose 115 Urine HCG, Qual Negative Cardiac Studies: Holter Monitor 10/08/19
[2019-12-01] MEDS: famotidine 20 mg/2 mL INJ IVP (09:59)
--- NOTE | 2019-12-01 10:40 | PM.OP ---
Operative Report Date of procedure: December 01, 2019 Pre-op Diagnosis: dysphagia Post-op diagnosis: same Post-op Findings: Mild to trachealization of the esophagus mild inflammatory changes in the duodenum Procedure Done: Flexible fiberoptic bronchoscopy with bronchial alveolar esophagogastroduodenoscopy with biopsy of esophagus and duodenum Specimens removed/disposition: BAL for lipid-laden macrophage biopsy of esophagus and duodenum Surgeon: Finesse Nicole Anesthesia: General Complications: None Condition: stable Disposition: PACU Brief History: 49-year-old female with dysphasia and recurrent atypical chest pain Procedure: Was taken to the operating room and under satisfactory general endotracheal anesthesia the bronchoscope was introduced into the trachea. Right and left bronchopulmonary segments 1 - 10 were examined. No endobronchial lesions were identified. A BAL was performed from the right lower lobe and sent for lipid-laden macrophage. The patient introduced to the postcricoid region. The esophagus stomach and duodenum were examined. The exam was significant for mild trachealization of the esophagus which appeared to resolve with insufflation. The inflammatory changes. Identified in the duodenum gastric mucosa GE junction were unremarkable. Multiple biopsies were taken in the mid and distal esophagus for eosinophilic esophagitis. A biopsy was taken of the duodenum. The procedure was terminated. The patient was taken to the recovery room in satisfactory and stable condition.
== END 2019-12-01 12:47 | disposition home or self-care (01) ==
PROVIDERS: Anesthesiology; Family Provider Nurse Practitioner; PCP Nurse Practitioner; Visit Provider Otolaryngology
PROC: 0DJ08ZZ Inspection of Upper Intestinal Tract, Via Natural or Artificial Opening Endoscopic (ICD-10-PCS; CPT 43235; principal; 2019-12-01 10:40)
PROC: 0BJ08ZZ Inspection of Tracheobronchial Tree, Via Natural or Artificial Opening Endoscopic (ICD-10-PCS; CPT 31622; 2019-12-01 10:40)
DX: R13.10 Dysphagia, unspecified (principal); K22.9 Disease of esophagus, unspecified; J44.9 Chronic obstructive pulmonary disease, unspecified; I10 Essential (primary) hypertension; F17.210 Nicotine dependence, cigarettes, uncomplicated; E11.9 Type 2 diabetes mellitus without complications; Z87.11 Personal history of peptic ulcer disease; M19.90 Unspecified osteoarthritis, unspecified site
CPT/HCPCS: 31624; 43239; 12345; 36416; 80500; 82962; 84703; 88305; 88313; 96374; J0330; J1100; J2001; J2250; J2704; J3010; J3490; J7030

== ENCOUNTER → 2020-01-31 09:12 | Outpatient (BNVA) | payer MEDICAID, SELFPAY | PROVIDERS: Family Provider Nurse Practitioner; PCP Nurse Practitioner; Referring Provider Nurse Practitioner; Visit Provider Specialist | DX: G31.84 Mild cognitive impairment of uncertain or unknown etiology (principal); F44.9 Dissociative and conversion disorder, unspecified | CPT/HCPCS: 99204 ==

== ENCOUNTER → 2020-03-27 11:21 | Outpatient (BNVA) | payer MEDICAID, SELFPAY | PROVIDERS: Family Provider Nurse Practitioner; PCP Nurse Practitioner; Visit Provider Nurse Practitioner | DX: E11.65 Type 2 diabetes mellitus with hyperglycemia (principal); I26.99 Other pulmonary embolism without acute cor pulmonale; I47.1 Supraventricular tachycardia; I10 Essential (primary) hypertension; F41.9 Anxiety disorder, unspecified | CPT/HCPCS: 80053; 83036; 85025 ==

== ENCOUNTER → 2020-10-19 10:26 | Outpatient (BNVA) | payer MEDICAID, SELFPAY | PROVIDERS: Family Provider Nurse Practitioner; PCP Nurse Practitioner; Visit Provider Nurse Practitioner | DX: E11.65 Type 2 diabetes mellitus with hyperglycemia (principal); I47.1 Supraventricular tachycardia; I10 Essential (primary) hypertension; F41.9 Anxiety disorder, unspecified; I26.99 Other pulmonary embolism without acute cor pulmonale; J30.89 Other allergic rhinitis; M54.5 Low back pain | CPT/HCPCS: 80053; 80061; 81000; 82043; 83036; 85025 ==

== ENCOUNTER 2020-11-06 17:18 | Emergency (ER) | payer MEDICAID, SELFPAY ==
[2020-11-06 17:31] VITALS: BP 117/59; PULSE 83; RESP 14; TEMP 36.5; O2SAT 98; BMI 36.8
--- NOTE | 2020-11-06 17:44 | ECG_ITS ---
[facility] Test Date: 2020-11-06 Pat Name: Phyllis Chopra Department: Room: Gender: Female Restaurant Greeter: JIM RODRIGUEZB: 1970 Requested By: Gris Saldana Order Number: [id number] Berny MD: Shivani Matute M.D. Measurements Intervals [place] Rate: 78 P: 15 DE: 167 QRS: -38 QRSD: 98 T: 1 QT: 392 QTc: 449 Interpretive Statements SINUS RHYTHM MARKED LEFT AXIS DEVIATION [QRS AXIS < -30] Compared to ECG 11/25/2019 18:12:41 No significant changes Electronically Signed On 11-07-2020 5:54:41 PROJECT CREW WORKER by Shivani Matute M.D. [id number]
--- NOTE | 2020-11-06 17:44 | XR_ITS ---
WS: [id number] Exam: XR chest 1V portable [id number] Date/Time of Exam: 11/06/2020 6:11 PM Reason For Exam: SOB Comparison 11/24/2019. Findings: The lungs are clear and fully expanded. Costophrenic angles are sharp. No infiltrates. Bronchovascula r relief appears normal. Cardiac silhouette is unremarkable. Bony elements are intact. XR/XR chest 1V portable [id number] IMPRESSION: Unremarkable chest radiograph.
[2020-11-06 19:21] VITALS: BP 103/53; PULSE 90; RESP 18; O2SAT 99
[2020-11-06] MEDS: predniSONE 20 mg Tablet PO (19:24)
[2020-11-06] MEDS: benzonatate 100 mg Capsule 200 MG PO (19:24)
--- NOTE | 2020-11-06 19:32 | ED_ITS ---
HPI - SOB/Dyspnea General: Chief Complaint: Shortness of Breath/Dyspnea Stated Complaint: Coughing, SOB Time Seen by Provider: 11/06/20 19:08 Source: patient Mode of arrival: ambulatory Limitations: no limitations History of Present Illness: HPI Narrative: 49-year-old female patient presents to the emergency department with 1 week onset of acute cough and shortness of breath. She reports her shortness of breath is chronic in nature as she suffers from COPD. She states since cough, has noted increased shortness of breath, denies bilateral lower extremity edema, history of cardiomyopathy. She reports yellow productive sputum on and off, reports increased use of inhaler which helps for approximately 1 to 2 hours with return of symptoms. She reports history of diabetes but does not take medication for diabetes or complete Accu- Cheks. She is complaining of right ear pain with onset of symptoms. She reports chest pain with cough. Feel like I have bronchitis . She is requesting a nebulizer machine upon exam. MD elicited complaint: shortness of breath and cough Pertinent past history: COPD, diabetes and PE Timing: intermittent and progressively worsening Severity: moderate Exacerbating factors: coughing Relieving factors: bronchodilators Known history of: COPD Associated symptoms: Reports chest congestion, chest pain (with cough) and cough; Deny abdominal pain, diaphoresis, dizziness, extremity pain, fever(s), hemoptysis, lightheadedness, nausea, orthopnea, palpitations, sense of impending doom, syncope or vomiting Treatment prior to arrival: bronchodilator Review of Systems General: Reports: 10 or more systems reviewed and unremarkable except in HPI and below Const: Denies: fever(s), chills, change in appetite, fatigue, malaise or diaphoresis Eyes: Denies: change in vision, blurry vision, eye discomfort or eye redness ENMT: Reports: ear or mastoid pain; Denies: throat pain, uvular edema, dental pain, disequilibrium, nasal discharge or nasal congestion Card: Reports: chest pain (with cough); Denies: palpitations, edema, swelling of feet/ankles, lightheadedness, syncope, dyspnea on exertion or orthopnea Resp: Reports: dyspnea, productive cough, wheezing and chest congestion; Denies: hemoptysis GI: Denies: abdominal pain, nausea, vomiting, diarrhea or constipation : Denies: difficulty voiding or dysuria Musc: Denies: neck pain, back pain, extremity pain, joint warmth or joint stiffness Skin/Breast: Denies: rash, pruritus, erythema, skin tenderness or changes in skin color Neuro: Denies: numbness in extremities, difficulty walking, frequent falls or dizziness Psych: Denies: anxiety or depression [place]/Lymph: Denies: easy bruising PFS ED PFSH: Medical History Acute non-seasonal allergic rhinitis Acute pulmonary embolism March 12, 2020 Anxiety Anxiety and depression Chest pain -has had recurrent episodes of chest pain; given her presentation and history are more suspicious that this is GI rather than cardiac related -has had extensive workup done including negative nuclear stress test in 09/2019 and Holter monitoring which showed baseline normal sinus rhythm with frequent PVCs -last Echo (06/2018): EF=45-50%, G1DD, mild global LV hypokinesis, trace MR, trace-mild TR, trace ID; repeat Echo: EF=60%, G1DD, no RWMA, trace TR -troponins noted with negative delta of 5 -no noted ischemic changes on ECG -telemetry monitoring -VSS; continue to monitor -PUJA -may need to discuss with cardiology given persistent symptoms -D-dimer-0.64, CTA negative for PE -abd US: negative for gallbladder pathology, mild hepatic steatosis -noted TSH, lipid panel, A1c (6.8) -continue statin -appreciate Dr. Nicole's consult; outpatient EGD Chest pain syndrome Chondromalacia, right knee Controlled diabetes mellitus with hyperglycemia COPD (chronic obstructive pulmonary disease) Deep vein thrombosis (DVT) of iliac vein of left lower extremity Dermatitis Deviated septum Dilated cardiomyopathy Dysphagia Dysphasia Environmental and seasonal allergies Eustachian tube dysfunction Hiatal hernia Laryngopharyngeal reflux Left flank tenderness Lumbar pain on palpation Lumbar paraspinal muscle spasm Memory change Nasal turbinate hypertrophy Osteoarthritis Peptic ulcer Postnasal drip Pre-syncope -suspicious for BPPV -carotid US: bilateral ICA stenosis < 50% -PT evaluation -fall precautions -meclizine PRN -not anemic, no evidence of dehydration, not hypoglycemic -orthostatics negative Pulmonary emboli PVC (premature ventricular contraction) SVT (supraventricular tachycardia) Surgical History H/O arthroscopic knee surgery H/O tubal ligation History of delivery History of esophagogastroduodenoscopy (EGD) Family History Other Cancer Diabetes Heart disease Social History Smoking and tobacco status: current every day smoker cigarettes Packs smoked per day: 0.5 (PPD) Quit status (tobacco): not considering quitting Second hand smoke exposure: No Smoking risk assessment/counseling performed?: Yes Alcohol intake: never Desire information about alcohol rehabilitation?: No Counseling given: No Desire information about substance/drug rehabilitation?: No Counseling given: No Caregiver/support person: No Lives independently: Yes Household members: children Marital status: Single Number of children: 11 Current occupational status: unemployed History of recent travel: No Current gender identity: Female Female Reproductive History: Date of last menstrual period: 10/01/20 Physical Exam Const: COMMON NORMALS: no acute distress, patient oriented x3, healthy appearing, alert and well nourished EXAM LIMITATIONS: no altered mental status and no physical limitations GENERAL APPEARANCE: cooperative, comfortable, well kempt, well developed and well hydrated; not in distress, not anxious and not ill appearing NUTRITIONAL APPEARANCE: obese ORIENTATION/CONSCIOUSNESS: Yes awake, Yes oriented to person, Yes oriented to place and Yes oriented to time HENMT: COMMON NORMALS: normocephalic, atraumatic, external ears normal, TM's normal bilaterally, Normal external nose present and moist oral mucous membranes HEAD & SCALP: normal to inspection, normocephalic and atraumatic FACE & SINUS: normal facial exam, sinuses nontender and face symmetric NOSE: Normal external nose present EXTERNAL EAR: Yes external ears normal TYMPANIC MEMBRANE: TM's normal bilaterally MOUTH: Normal oral and palatal mucosa present, lip normal and tongue normal THROAT: no uvular edema Eye: COMMON NORMALS: Equal, round and reactive pupils present and EOMs intact bilaterally GENERAL EYE: appearance normal, both eyes and all related structures ALIGNMENT: Yes alignment normal EYELID: eyelids normal PUPIL: Yes Equal, round and reactive pupils present Neck/C-Spine: COMMON NORMALS: full ROM, no lymphadenopathy and supple GENERAL: Yes normal visual inspection and Yes trachea midline CERVICAL SPINE: Yes cervical ROM normal Lymph: LYMPHATIC: no lymphadenopathy noted Chest: COMMONS NORMALS: normal inspection of the chest and normal palpation of entire chest wall CHEST: No localized rib tenderness with anteroposterior compression Resp: COMMON NORMALS: normal respiratory effort, No retractions, No use of accessory muscles and clear to auscultation bilaterally EFFORT & INSPECTION: Yes able to speak in complete sentences, Yes symmetric chest movement, No tachypneic, No respiratory distress, No decreased respiratory effort, No labored, Yes Actively coughing and No audible wheezes AUSCULTATION: clear to auscultation bilaterally and lung sounds not diminished Cardio: COMMON NORMALS: regular rate, regular rhythm, S1 normal heart sound present, S2 normal heart sound present and Peripheral pulses 2+ throughout JUGULAR VENOUS DISTENTION: no JVD PALPATION: normal PMI RATE: regular rate RHYTHM: regular rhythm HEART SOUNDS: S1 normal heart sound present and S2 normal heart sound present PERIPHERAL PULSES: Peripheral pulses 2+ throughout GI: COMMON NORMALS: Normal to inspection, nondistended, normoactive bowel sounds present, Soft to palpation and non-tender INSPECTION: Yes normal to inspection, No abdominal wall ecchymosis, No abdominal distension and Yes central obesity PALPATION: Yes Soft to palpation : COMMON NORMALS: Yes no CVA tenderness BLADDER/KIDNEY EXAM: Yes no CVA tenderness Back/Pelvis: COMMON NORMALS: no CVA tenderness and thoracic and lumbar spine normal to inspection Extremity: COMMON NORMALS: normal to inspection and capillary refill normal Neuro: COMMON NORMALS: patient oriented x3 and no focal motor deficits SENSORIUM/ORIENTATION: Yes alert, Yes oriented to person, Yes oriented to place and Yes oriented to time GAIT: Yes Normal gait present MOTOR EXAM: 5/5 motor strength present throughout Psych: COMMON NORMALS: mental status grossly normal, Normal thought process present, cooperative, normal affect, speech normal and activity/motor behavior normal APPEARANCE: Yes well kempt ACTIVITY/MOTOR BEHAVIOR: Yes appropriate eye contact SPEECH: Yes normal speech THOUGHT PROCESS: Normal thought process present Skin: COMMON NORMALS: no rashes or lesions noted and turgor normal GENERAL SKIN EXAM: no rashes or lesions noted and turgor normal Course Vital Signs: Vital signs: Vital Signs Temperature 97.7 F 11/06/20 17:31 Pulse Rate 87 11/06/20 19:38 Respiratory Rate 18 11/06/20 19:38 Blood Pressure 100/58 11/06/20 19:38 Pulse Oximetry 98 11/06/20 19:38 MDM - SOB/Dyspnea MDM Narrative: Medical decision making narrative: 49-year-old female patient presents to the emergency department with 1 week onset of acute cough congestion with productive sputum. Chest x-ray without acute infiltrate, radiology interpretation pending, she was actively coughing upon exam, EKG without acute process. She has known COPD, describes her current illness as bronchitis which she has experienced in the past. Oxygen saturation 99 200% on room air, sinus rhythm to the monitor with sinus rhythm, she is not tachycardic or hypoxic. Well's score PE 1.5. Discharge Plan Discharge Patient Disposition: Home Clinical Impression: Suspected 2019 novel coronavirus infection, Acute bronchitis with COPD, Acute exacerbation of chronic bronchitis Condition: Stable Prescriptions: New prednisone 20 mg tablet 20 mg PO BID 5 Days Qty: 10 RF: 0 Augmentin 875-125 mg tablet 1 tab PO BID Qty: 14 RF: 0 ipratropium-albuterol 0.5 mg-3 mg(2.5 mg base)/3 mL solution for nebulization 3 ml inhalation Q6H PRN (Reason: shortness of breath or wheezing) Qty: 180 RF: 0 Advair Diskus 100-50 mcg/dose blister with device 1 inh inhalation BID Qty: 60 RF: 0 benzonatate 200 mg capsule 200 mg PO TID PRN (Reason: cough) Qty: 20 RF: 0 No Action diphenhydramine HCl [Benadryl Allergy] 25 mg tablet 25 mg PO PRN RF: 0 (DME) pen needle, diabetic 33 gauge x 5/32 needle See Rx Instructions .ROUTE .MEDSUPPLY Qty: 100 RF: 2 metoprolol succinate 100 mg tablet extended release 24 hr 100 mg PO BID Qty: 60 RF: 3 nitroglycerin 0.4 mg tablet, sublingual 0.4 mg SUBLINGUAL Q5M PRN (Reason: chest pain) Qty: 25 RF: 6 albuterol sulfate [ProAir HFA] 90 mcg/actuation HFA aerosol inhaler See Rx Instructions .ROUTE .COMPLEX Qty: 9 RF: 0 Pamprin 500-25-15 mg Tablet 3 tab PO PRN RF: 0 Aspir-81 81 mg Tablet,Delayed Release (Dr/Ec) 81 mg PO QAM RF: 0 cetirizine 10 mg tablet 10 mg PO QAM RF: 0 lisinopril 10 mg tablet See Rx Instructions .ROUTE .COMPLEX RF: 0 diltiazem HCl 30 mg tablet 30 mg PO TID RF: 0 Discharge Orders: Discharge ED (Routine); Ordered 11/06/20 Ordered By: Gris Tao Referrals: Brian Mary, [facility] [Primary Care Provider] - Discharge Diet: Usual diet Discharge Activity: Resume usual activity Patient Instructions: Acute Bronchitis (ED), Chronic Obstructive Pulmonary Disease (ED), Opioid Safety Activity Restrictions/Additional Instructions: Take prednisone with food to avoid upset stomach Take Augmentin until all gone, even if feeling better Follow-up with your primary care in 4 to 5 days if not improved Covid testing has been completed today, remain in quarantine until results are known, if positive, [facility] will contact you with further instructions Continue all other prescribed medication Nebulizer machine has been provided, continue albuterol inhaler as rescue inhaler. Please note Advair is not your rescue inhaler, take inhalations of Advair only as prescribed. Coding Level of Care Code ED Link And Link Knitting Machine Operator for Britt Fwd Exam Comprehensive
[2020-11-06 19:38] VITALS: BP 100/58; PULSE 87; RESP 18; O2SAT 98
== END 2020-11-06 19:41 | disposition home or self-care (01) ==
PROVIDERS: Emergency Provider Nurse Practitioner Family; PCP Nurse Practitioner
DX: J42 Unspecified chronic bronchitis (principal); Z20.828 Contact with and (suspected) exposure to other viral communicable diseases; Z79.82 Long term (current) use of aspirin; F17.210 Nicotine dependence, cigarettes, uncomplicated
CPT/HCPCS: 71045; 93005; 99284; J7512

== ENCOUNTER → 2020-12-08 15:19 | Outpatient (BNVA) | payer MEDICAID, SELFPAY | PROVIDERS: PCP Nurse Practitioner; Visit Provider Nurse Practitioner Family | DX: H65.192 Other acute nonsuppurative otitis media, left ear (principal); R10.12 Left upper quadrant pain | CPT/HCPCS: 81000 ==

== ENCOUNTER 2021-04-27 21:16 | Emergency (ER) | payer MEDICAID, SELFPAY ==
[2021-04-27 21:21] VITALS: BP 150/86; PULSE 98; RESP 20; TEMP 36.7; O2SAT 98; BMI 36.9
--- NOTE | 2021-04-27 21:27 | XRR_ITS ---
PROCEDURE INFORMATION: Exam: XR Chest Exam date and time: 04/27/2021 9:27 PM Age: 50 years old Clinical indication: Sternal or substernal pain; Prior surgery; Surgery type: 2 cardiac ablations; Additional info: Cp TECHNIQUE: Imaging protocol: XR of the chest. Views: 1 view. COMPARISON: CR XR chest 1V portable [id number] 11/06/2020 6:09 PM FINDINGS: Lungs: There is no consolidation. Pleural spaces: There is no pleural effusion or pneumothorax. Heart/Mediastinum: Cardiomediastinal contours are unremarkable. Bones/joints: Bones are unremarkable. XR/XR chest 1V portable [id number] IMPRESSION: No acute findings.
--- NOTE | 2021-04-27 21:27 | ECG_ITS ---
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 Measurements Intervals [place] Rate: 84 P: 22 RI: 154 QRS: -65 QRSD: 98 T: -3 QT: 387 QTc: 459 Interpretive Statements SINUS RHYTHM LOW QRS VOLTAGE IN PRECORDIAL LEADS [QRS DEFLECTION < 1.0 mV IN CHEST LEADS] PATTERN CONSISTENT WITH PULMONARY DISEASE INFERIOR MYOCARDIAL INFARCTION [40+ ms Q WAVE AND/OR ST/T ABNORMALITY IN II/aVF], OF INDETERMINATE AGE INTERPRETATION BASED ON A DEFAULT AGE OF 40 YEARS Compared to ECG 11/06/2020 17:42:37 Low QRS voltage now present Myocardial infarct finding now present Left-axis deviation no longer present Electronically Signed On 04-29-2021 16:22:41 CDT by Henny Holt M.D. [id number]
[2021-04-27 21:37] LABS: Basophils # 0.1 10^3/uL (0.0-0.1); Basophils % 0.7 %; Eosinophils # 0.3 10^3/uL (0.0-0.8); Eosinophils % 2.3 %; Hematocrit 42.7 % (37.0-47.0); Hemoglobin 13.9 g/dL (11.5-15.3); Lymphocytes # 2.8 10^3/uL (0.8-4.8); Mean Corpuscular HGB Conc 32.6 g/dL (30.0-36.0); Mean Corpuscular Hemoglobin 27.1 pg (28.0-34.0); Mean Corpuscular Volume 83.4 fl (81-99); Mean Platelet Volume 10.1 fL (7.4-10.4); Monocytes # 0.7 10^3/uL (0.2-0.9); Monocytes % 6.6 %; Neutrophils # 6.96 10^3/uL (1.8-7.7); Neutrophils % 64.1 %; Nucleated Red Blood Cells % 0 %; Platelet Count 256 10^3/cmm (130-400); Red Blood Count 5.12 10^6/uL (4.1-5.3); Red Cell Distribution Width 16.8 % (12.1-15.1); White Blood Count 10.9 10^3/uL (4.0-10.0)
[2021-04-27 21:39] VITALS: BP 143/103; PULSE 84; RESP 16; TEMP 37.1; O2SAT 98
[2021-04-27] MEDS: ondansetron 2 mg/ML SDV 2 mL 4 MG IVP (21:43)
--- NOTE | 2021-04-27 21:45 | W.ED.CHESTPA ---
HPI - Chest Pain General: Chief Complaint: Chest Pain Stated Complaint: CP/SOB/Tingling in arms Time Seen by Provider: 04/27/21 21:26 History of Present Illness: HPI narrative: 50-year-old female with a history of SVT status post 2 ablations. She has been having some problems of late, and has a chemical stress test set up for next week. She presents with central chest discomfort, starting shortly after a light supper this evening at home. She has had pain for a couple of hours. She notes the pain radiates to her jaw. A bit to her left arm as well. She has a feeling in her left arm. She notes that her mouth and face are tingly, but denies hyperventilation. She took a nitroglycerin at home and of Benadryl without any relief. MD complaint: chest pain Pertinent past history: other Onset (ago): hour(s) Timing of current episode: constant and still present Prior episodes: Yes Onset: during rest Pain location: substernal Pain radiation: jaw/teeth Severity: moderate Quality: aching Relieving factors: nothing Exacerbating factors: nothing Associated symptoms: Reports dyspnea, nausea and palpitations; Deny abdominal pain, diaphoresis, fever(s), leg edema or vomiting Treatment prior to arrival: nitroglycerin Review of Systems Const: Denies: fever(s) or diaphoresis Card: Reports: chest pain and palpitations Resp: Reports: dyspnea and non-productive cough (Chronic) GI: Reports: nausea; Denies: abdominal pain or vomiting Neuro: Reports: headache(s) [facility] ED PFSH: Medical History Acute non-seasonal allergic rhinitis Acute pulmonary embolism March 12, 2020 Anxiety Anxiety and depression Chest pain -has had recurrent episodes of chest pain; given her presentation and history are more suspicious that this is GI rather than cardiac related -has had extensive workup done including negative nuclear stress test in 09/2019 and Holter monitoring which showed baseline normal sinus rhythm with frequent PVCs -last Echo (06/2018): EF=45-50%, G1DD, mild global LV hypokinesis, trace MR, trace-mild TR, trace MO; repeat Echo: EF=60%, G1DD, no RWMA, trace TR -troponins noted with negative delta of 5 -no noted ischemic changes on ECG -telemetry monitoring -VSS; continue to monitor -PUJA -may need to discuss with cardiology given persistent symptoms -D-dimer-0.64, CTA negative for PE -abd US: negative for gallbladder pathology, mild hepatic steatosis -noted TSH, lipid panel, A1c (6.8) -continue statin -appreciate Dr. Nicole's consult; outpatient EGD Chest pain syndrome Chondromalacia, right knee Controlled diabetes mellitus with hyperglycemia COPD (chronic obstructive pulmonary disease) Deep vein thrombosis (DVT) of iliac vein of left lower extremity Dermatitis Deviated septum Dilated cardiomyopathy Dysphagia Dysphasia Environmental and seasonal allergies Eustachian tube dysfunction Hiatal hernia Laryngopharyngeal reflux Left flank tenderness Lumbar pain on palpation Lumbar paraspinal muscle spasm Memory change Nasal turbinate hypertrophy Osteoarthritis Peptic ulcer Postnasal drip Pre-syncope -suspicious for BPPV -carotid US: bilateral ICA stenosis < 50% -PT evaluation -fall precautions -meclizine PRN -not anemic, no evidence of dehydration, not hypoglycemic -orthostatics negative Pulmonary emboli PVC (premature ventricular contraction) SVT (supraventricular tachycardia) Surgical History H/O arthroscopic knee surgery H/O tubal ligation History of delivery History of esophagogastroduodenoscopy (EGD) Family History Other Cancer Diabetes Heart disease Social History Smoking and tobacco status: current every day smoker cigarettes Packs smoked per day: 0.5 (PPD) Quit status (tobacco): not considering quitting Second hand smoke exposure: No Smoking risk assessment/counseling performed?: Yes Alcohol intake: never Desire information about alcohol rehabilitation?: No Counseling given: No Desire information about substance/drug rehabilitation?: No Counseling given: No Caregiver/support person: No Lives independently: Yes Household members: children Marital status: Single Number of children: 11 Current occupational status: unemployed History of recent travel: No Current gender identity: Female Female Reproductive History: Date of last menstrual period: 10/01/20 Physical Exam Const: COMMON NORMALS: patient oriented x3 and alert GENERAL APPEARANCE: cooperative and ill appearing Eye: COMMON NORMALS: Equal, round and reactive pupils present and EOMs intact bilaterally PUPIL: Yes Equal, round and reactive pupils present Chest: COMMONS NORMALS: normal inspection of the chest Resp: COMMON NORMALS: normal respiratory effort, No use of accessory muscles and clear to auscultation bilaterally AUSCULTATION: clear to auscultation bilaterally Cardio: COMMON NORMALS: regular rate and regular rhythm RATE: regular rate RHYTHM: regular rhythm GI: COMMON NORMALS: Normal to inspection, nondistended, normoactive bowel sounds present, Soft to palpation and non-tender PALPATION: Yes Soft to palpation Extremity: COMMON NORMALS: no clubbing, cyanosis or edema Neuro: COMMON NORMALS: patient oriented x3 SENSORIUM/ORIENTATION: Yes alert Course Vital Signs: Vital signs: Vital Signs Temperature 98.1 F 04/27/21 22:51 Pulse Rate 75 04/28/21 00:00 Respiratory Rate 17 04/28/21 00:00 Blood Pressure 110/67 04/28/21 00:00 Pulse Oximetry 95 04/28/21 00:00 MDM - Chest Pain MDM Narrative: Medical decision making narrative: Patient also with a history of DVT/PE, and is no longer on anticoagulants. She has some problems with menorrhagia regarding this. She has a stress test scheduled 05/04. Chest pain is essentially resolved now. She was given a GI cocktail and morphine. She states that she had not eaten yet when her pain started. Her pain is mildly concerning for angina. Her troponin, however, did not elevate. Her EKG shows a sinus rhythm without acute ST wave changes. She will be allowed discharge. She knows to return if her pain returns between now and the time of her stress test. Lab Data: Labs: Lab Results 04/27/21 04/27/21 04/27/21 Range/Units 21:31 21:31 21:31 WBC 10.9 H (4.0-10.0) 10^3/ uL RBC 5.12 (4.1-5.3) 10^6/u L Hgb 13.9 (11.5-15.3) g/dL Hct 42.7 (37.0-47.0) % MCV 83.4 (81-99) fl MCH 27.1 L (28.0-34.0) pg MCHC 32.6 (30.0-36.0) g/dL RDW 16.8 H (12.1-15.1) % Plt Count 256 (130-400) 10^3/c mm MPV 10.1 (7.4-10.4) fL Neut % (Auto) 64.1 % Lymph % (Auto) 26.0 % Lanier % (Auto) 6.6 % Eos % (Auto) 2.3 % Baso % (Auto) 0.7 % Neut # (Auto) 6.96 (1.8-7.7) 10^3/u L Lymph # (Auto) 2.8 (0.8-4.8) 10^3/u L Lanier # (Auto) 0.7 (0.2-0.9) 10^3/u L Eos # (Auto) 0.3 (0.0-0.8) 10^3/u L Baso # (Auto) 0.1 (0.0-0.1) 10^3/u L Nucleated RBC % (a uto) 0 % Nucleated RBCs # 0.0 /100WBC D-Dimer 0.89 H (0-0.59) ug/mIFE U Sodium 135 L (136-145) mmol/L Potassium 4.0 (3.5-5.1) mmol/L Chloride 100 (98-107) mmol/L Carbon Dioxide 23 (22-29) mmol/L Anion Gap 16.0 (5-19) BUN 10 (6-20) mg/dL Creatinine 0.7 (0.5-0.9) mg/dL GFR Calculation 87.9 L (90-130) mL/min Glucose 182 H (65-115) mg/dL Calculated Osmolal ity 284 L (285-295) mOsm/k g Calcium 9.4 (8.5-10.5) mg/dL Total Bilirubin 0.3 (0.15-1.2) mg/dL AST 24 (0-32) U/L ALT 20 (0-33) U/L Alkaline Phosphata se 118 H (35-105) IU/L Creatine Kinase 128 (26-192) U/L Troponin T Baselin e (0-10) ng/L Troponin T 120 Min gabino (0-10) ng/L Delta Troponin T (0-10) ABS# NT-Pro-B Natriuret Pep 41 (0-125) pg/mL Total Protein 7.0 (6.6-8.7) g/dL Albumin 4.0 (3.5-5.2) g/dL Globulin 3.0 (1.3-4.6) g/dL 04/27/21 04/27/21 Range/Units 21:31 23:41 WBC (4.0-10.0) 10^3/ uL RBC (4.1-5.3) 10^6/u L Hgb (11.5-15.3) g/dL Hct (37.0-47.0) % MCV (81-99) fl MCH (28.0-34.0) pg MCHC (30.0-36.0) g/dL RDW (12.1-15.1) % Plt Count (130-400) 10^3/c mm MPV (7.4-10.4) fL Neut % (Auto) % Lymph % (Auto) % Lanier % (Auto) % Eos % (Auto) % Baso % (Auto) % Neut # (Auto) (1.8-7.7) 10^3/u L Lymph # (Auto) (0.8-4.8) 10^3/u L Lanier # (Auto) (0.2-0.9) 10^3/u L Eos # (Auto) (0.0-0.8) 10^3/u L Baso # (Auto) (0.0-0.1) 10^3/u L Nucleated RBC % (a uto) % Nucleated RBCs # /100WBC D-Dimer (0-0.59) ug/mIFE U Sodium (136-145) mmol/L Potassium (3.5-5.1) mmol/L Chloride (98-107) mmol/L Carbon Dioxide (22-29) mmol/L Anion Gap (5-19) BUN (6-20) mg/dL Creatinine (0.5-0.9) mg/dL GFR Calculation (90-130) mL/min Glucose (65-115) mg/dL Calculated Osmolal ity (285-295) mOsm/k g Calcium (8.5-10.5) mg/dL Total Bilirubin (0.15-1.2) mg/dL AST (0-32) U/L ALT (0-33) U/L Alkaline Phosphata se (35-105) IU/L Creatine Kinase (26-192) U/L Troponin T Baselin e 23 H (0-10) ng/L Troponin T 120 Min gabino 21.77 H (0-10) ng/L Delta Troponin T -1.23 L (0-10) ABS# NT-Pro-B Natriuret Pep (0-125) pg/mL Total Protein (6.6-8.7) g/dL Albumin (3.5-5.2) g/dL Globulin (1.3-4.6) g/dL Discharge Plan Discharge Patient Disposition: Home Clinical Impression: Chest pain Qualifiers: Chest pain type: unspecified Qualified Code(s): R07.9 - Chest pain, unspecified Condition: Stable Prescriptions: No Action prednisone 20 mg tablet 20 mg PO BID 3 Days Qty: 6 RF: 0 diphenhydramine HCl [Benadryl Allergy] 25 mg tablet 25 mg PO PRN RF: 0 (DME) pen needle, diabetic 33 gauge x 5/32 needle See Rx Instructions .ROUTE .MEDSUPPLY Qty: 100 RF: 2 nitroglycerin 0.4 mg tablet, sublingual 0.4 mg SUBLINGUAL Q5M PRN (Reason: chest pain) Qty: 25 RF: 6 albuterol sulfate [ProAir HFA] 90 mcg/actuation HFA aerosol inhaler See Rx Instructions .ROUTE .COMPLEX Qty: 9 RF: 0 metoprolol succinate 100 mg tablet extended release 24 hr 100 mg PO BID Qty: 60 RF: 3 lisinopril 10 mg tablet 15 mg PO DIRECTED Qty: 135 RF: 3 Pamprin 500-25-15 mg Tablet 3 tab PO PRN RF: 0 Aspir-81 81 mg Tablet,Delayed Release (Dr/Ec) 81 mg PO QAM RF: 0 ipratropium-albuterol 0.5 mg-3 mg(2.5 mg base)/3 mL solution for nebulization 3 ml inhalation Q6H PRN (Reason: shortness of breath or wheezing) Qty: 180 RF: 0 cetirizine 10 mg tablet 10 mg PO QAM RF: 0 diltiazem HCl 30 mg tablet 30 mg PO TID RF: 0 Advair Diskus 100-50 mcg/dose blister with device 1 inh inhalation BID Qty: 60 RF: 0 benzonatate 200 mg capsule 200 mg PO TID PRN (Reason: cough) Qty: 20 RF: 0 Discharge Orders: Discharge ED (Routine); Ordered 04/28/21 Ordered By: Jordon Li Referrals: Brian Mary FNP-C [Primary Care Provider] - Patient Instructions: Chest Pain (ED) Activity Restrictions/Additional Instructions: Return for return of chest pain, worsening shortness of breath, syncope or passing out, any other concerning symptoms. Keep your appointment for your scheduled stress test this coming week. Coding Level of Care Code ED Computerized [employer] for Chg Fwd Exam Detailed
[2021-04-27 21:46] VITALS: RESP 20
[2021-04-27] MEDS: morphine 4 mg/mL SDV 1 mL IVP (21:46)
[2021-04-27] MEDS: aspirin 325 mg Tablet PO (21:49)
[2021-04-27] MEDS: lidocaine 2% viscous 15 ML, aluminum-mag hydrox-simethicon 30 ML, sucralfate oral liq 1 GM PO (21:50)
[2021-04-27 21:54] VITALS: BP 123/85; PULSE 86; RESP 20; O2SAT 96
--- NOTE | 2021-04-27 21:56 | PC.NURSE ---
pt reluctant to take gi cocktail.
--- NOTE | 2021-04-27 22:16 | PC.NURSE ---
2.6 ml of blood aspirated from purple lumen, then stopped drawing. 30 ml NS flushed without difficulty. praimary nurse and provider updated.
[2021-04-27 22:19] LABS: Troponin(5th) Baseline 23 ng/L (0-10)
[2021-04-27 22:28] LABS: Alanine Aminotransferase 20 U/L (0-33); Alkaline Phosphatase 118 IU/L (35-105); Aspartate Amino Transferase 24 U/L (0-32); Blood Urea Nitrogen 10 mg/dL (6-20); Calcium 9.4 mg/dL (8.5-10.5); Carbon Dioxide 23 mmol/L (22-29); Chloride 100 mmol/L (98-107); Creatine Phosphokinase 128 U/L (26-192); Glomerular Filtration Rate 87.9 mL/min (90-130); Glucose 182 mg/dL (65-115); NT Pro B Type Natriuretic Pept 41 pg/mL (0-125); Osmolality Calculated 284 mOsm/kg (285-295); Sodium 135 mmol/L (136-145); Total Bilirubin 0.3 mg/dL (0.15-1.2)
[2021-04-27 22:51] VITALS: BP 124/81; PULSE 78; RESP 14; TEMP 36.7; O2SAT 97
--- NOTE | 2021-04-27 22:53 | PC.NURSE ---
report to Dayanara VILLASEÑOR
[2021-04-27 22:54] LABS: D Dimer 0.89 ug/mIFEU (0-0.59)
--- NOTE | 2021-04-27 23:16 | CTR_ITS ---
PROCEDURE INFORMATION: Exam: CTA Chest With Contrast Exam date and time: 04/27/2021 11:16 PM Age: 50 years old Clinical indication: Shortness of breath; Chest pressure; Prior surgery; Surgery type: Cardiac ablation x 2; Patient HX: Chest pain/sob/elevated ddimer. History of dvt. TECHNIQUE: Imaging protocol: Computed tomographic angiography of the chest with contrast. 3D rendering (Not supervised by radiologist): MIP and/or 3D reconstructed images were created by the technologist. Radiation optimization: All CT scans at this facility use at least one of these dose optimization techniques: automated exposure control; mA and/or kV adjustment per patient size (includes targeted exams where dose is matched to clinical indication); or iterative reconstruction. Contrast material: OMNI 350; Contrast volume: 72 ml; Contrast route: INTRAVENOUS (IV); COMPARISON: CT angio chest w abd pel w con 11/25/2019 2:50 PM RADIATION DOSE METRICS: Total DLP (mGy-cm): 613.53 FINDINGS: Pulmonary arteries: The pulmonary arteries are adequately opacified for evaluation to the subsegmental level. There is no filling defect to suggest embolism. Aorta: The aorta is unremarkable. There is no aneurysm. Lungs: Lungs are clear. Pleural spaces: There is no pleural effusion or pneumothorax. Heart: The heart is unremarkable. There is no pericardial effusion. Lymph nodes: There is no mediastinal or hilar lymphadenopathy. Bones/joints: Bones are unremarkable. Soft tissues: Unremarkable. CT/CT angio chest PE protcl [id number] IMPRESSION: No pulmonary embolism. Radiation Dose CTDIVOL = (mGy): DLP = 613.53 (mGy-cm)
[2021-04-27] MEDS: iohexol 350 mg/mL 100 mL Btl IV (23:34)
[2021-04-27 23:43] VITALS: BP 120/67; PULSE 78; RESP 17; O2SAT 95
[2021-04-28] VITALS: BP 110/67; PULSE 75; RESP 17; O2SAT 95
[2021-04-28 00:03] LABS: Troponin 5 2HR 21.77 ng/L (0-10)
[2021-04-28 00:08] LABS: Troponin 5 2HR Delta -1.23 ABS# (0-10)
[2021-04-28 01:17] VITALS: BP 108/63; PULSE 78; RESP 17; O2SAT 95
== END 2021-04-28 01:18 | disposition home or self-care (01) ==
PROVIDERS: Emergency Provider Emergency Medicine; PCP Nurse Practitioner
DX: R07.9 Chest pain, unspecified (principal); E11.9 Type 2 diabetes mellitus without complications; J44.9 Chronic obstructive pulmonary disease, unspecified; F17.210 Nicotine dependence, cigarettes, uncomplicated
CPT/HCPCS: 36415; 71045; 71275; 80053; 82550; 83880; 84484; 85025; 85378; 93005; 96374; 96375; 99284; J2270; J2405; Q9967

== ENCOUNTER → 2021-05-23 10:08 | Outpatient (BNVA) | payer MEDICAID, SELFPAY | PROVIDERS: PCP Nurse Practitioner; Visit Provider Nurse Practitioner | DX: M47.896 Other spondylosis, lumbar region (principal); M47.894 Other spondylosis, thoracic region; M54.6 Pain in thoracic spine; M54.5 Low back pain | CPT/HCPCS: 72072; 72100 ==

== ENCOUNTER → 2021-06-13 14:00 | Outpatient (BNVA) | payer MEDICAID, SELFPAY | PROVIDERS: PCP Nurse Practitioner; Visit Provider Nurse Practitioner Family | DX: R20.8 Other disturbances of skin sensation (principal) | CPT/HCPCS: 85025 ==

== ENCOUNTER 2021-06-15 15:40 | Emergency (ER) | payer MEDICAID, SELFPAY ==
[2021-06-15] VITALS (13 sets, daily range): BP systolic 91–119; BP diastolic 57–73; PULSE 74–104; RESP 17–20; TEMP 28.8–36.8; O2SAT 96–99; BMI 38.0
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
[2021-06-15] MEDS: ondansetron 2 mg/ML SDV 2 mL 4 MG IVP (16:15)
[2021-06-15 16:16] LABS: Basophils # 0.1 10^3/uL (0.0-0.1); Basophils % 0.5 %; Eosinophils # 0.2 10^3/uL (0.0-0.8); Eosinophils % 1.5 %; Hematocrit 40.3 % (37.0-47.0); Hemoglobin 12.9 g/dL (11.5-15.3); Lymphocytes # 1.7 10^3/uL (0.8-4.8); Lymphocytes % 12.9 %; Mean Corpuscular Hemoglobin 27.7 pg (28.0-34.0); Mean Corpuscular Volume 86.5 fl (81-99); Mean Platelet Volume 10.1 fL (7.4-10.4); Monocytes # 0.8 10^3/uL (0.2-0.9); Monocytes % 6.1 %; Neutrophils # 10.19 10^3/uL (1.8-7.7); Neutrophils % 78.5 %; Nucleated Red Blood Cells % 0 %; Platelet Count 259 10^3/cmm (130-400); Red Blood Count 4.66 10^6/uL (4.1-5.3); Red Cell Distribution Width 15.8 % (12.1-15.1)
[2021-06-15] MEDS: HYDROmorphone 1 mg/mL INJ 1 mL 0.5 MG IVP (16:23)
--- NOTE | 2021-06-15 16:25 | PC.NURSE ---
Pt reports bilateral lower leg pain, lower abd pain, lower back pain, right hip pain, left breast pain, and right shoulder pain. Bruises noted to these areas as well. Decreased ROM with bilateral legs.
[2021-06-15 16:29] LABS: Alanine Aminotransferase 21 U/L (0-33); Albumin Level 3.8 g/dL (3.5-5.2); Alkaline Phosphatase 103 IU/L (35-105); Anion Gap 14.2 (5-19); Aspartate Amino Transferase 25 U/L (0-32); Blood Urea Nitrogen 16 mg/dL (6-20); Calcium 9.9 mg/dL (8.5-10.5); Carbon Dioxide 24 mmol/L (22-29); Chloride 102 mmol/L (98-107); Creatinine Clr Calc Pharmacy 159.3178; Globulin 2.9 g/dL (1.3-4.6); Glucose 154 mg/dL (65-115); Osmolality Calculated 286 mOsm/kg (285-295); Potassium 4.2 mmol/L (3.5-5.1); Sodium 136 mmol/L (136-145); Total Bilirubin 0.3 mg/dL (0.15-1.2); Total Protein 6.7 g/dL (6.6-8.7)
--- NOTE | 2021-06-15 16:50 | PC.PHAR ---
pt states she takes care of her own medications-pt states she takes lisinopril 20mg bid ext med history shows last filled on 05/16/21 30d/s for 10mg po qam and 5mg qpm-pt states the dced her from taking aspirin 81mg pt states she hasnt taken for months-
[2021-06-15] MEDS: iohexol 300 mg/mL 100 mL Btl IV (17:00)
== END 2021-06-15 18:49 | disposition home or self-care (01) ==
PROVIDERS: Emergency Provider Family Medicine; PCP Nurse Practitioner
DX: Z04.1 Encounter for examination and observation following transport accident (principal); M79.605 Pain in left leg; M79.604 Pain in right leg; E11.9 Type 2 diabetes mellitus without complications; J44.9 Chronic obstructive pulmonary disease, unspecified; Z86.711 Personal history of pulmonary embolism; F17.210 Nicotine dependence, cigarettes, uncomplicated; V89.2XXA Person injured in unspecified motor-vehicle accident, traffic, initial encounter
CPT/HCPCS: 70450; 71260; 72125; 73590; 74177; 80053; 85025; 86850; 86900; 96374; 96375; 99284; J1170; J2405; Q9967

== ENCOUNTER → 2021-06-21 11:50 | Outpatient (BNVA) | payer OTHER, SELFPAY | PROVIDERS: PCP Nurse Practitioner; Visit Provider Nurse Practitioner | DX: E11.65 Type 2 diabetes mellitus with hyperglycemia (principal) | CPT/HCPCS: 81003 ==

== ENCOUNTER 2021-12-04 14:41 | Outpatient (CLI) | payer MEDICAID, SELFPAY ==
--- NOTE | 2021-12-04 15:07 | XR_ITS ---
WS: [id number] Sacrum and coccyx, 3 views, 12/04/2021 Clinical Data: M53.3 - Sacrococcygeal disorders, not elsewhere classified Comparison: None. Findings: No fractures or dislocations are seen. The SI joints and pubic symphysis are unremarkable. No bone de struction or erosion is seen. There is a stent graft from the origin of the left common iliac artery extending into the left common femoral artery. XR/XR coccyx 2V [id number] Impression: Negative sacrum and coccyx.
[2021-12-04 15:49] LABS: Basophils # 0.1 10^3/uL (0.0-0.1); Basophils % 0.7 %; Eosinophils # 0.2 10^3/uL (0.0-0.8); Eosinophils % 3.2 %; Hematocrit 41.9 % (37.0-47.0); Lymphocytes # 2.3 10^3/uL (0.8-4.8); Lymphocytes % 30.5 %; Mean Corpuscular Volume 77.4 fl (81-99); Mean Platelet Volume 9.8 fL (7.4-10.4); Monocytes # 0.5 10^3/uL (0.2-0.9); Monocytes % 6.3 %; Neutrophils # 4.43 10^3/uL (1.8-7.7); Nucleated Red Blood Cells % 0 %; Platelet Count 272 10^3/cmm (130-400); Red Blood Count 5.41 10^6/uL (4.1-5.3); Red Cell Distribution Width 20.1 % (12.1-15.1); White Blood Count 7.5 10^3/uL (4.0-10.0)
[2021-12-04 16:08] LABS: Alanine Aminotransferase 30 U/L (0-33); Albumin Level 4.3 g/dL (3.5-5.2); Alkaline Phosphatase 128 IU/L (35-105); Anion Gap 15.5 (5-19); Aspartate Amino Transferase 24 U/L (0-32); Blood Urea Nitrogen 14 mg/dL (6-20); Calcium 10.4 mg/dL (8.5-10.5); Carbon Dioxide 24 mmol/L (22-29); Chloride 103 mmol/L (98-107); Chol HDL Ratio 5.97 mg/dL (0.0-4.40); Cholesterol 179 mg/dL (0-200); Globulin 2.8 g/dL (1.3-4.6); Glucose 208 mg/dL (65-115); HDL Cholesterol 30 mg/dL (60-100); LDL Cholesterol Calculated 88 mg/dL (50-129); Osmolality Calculated 293 mOsm/kg (285-295); Potassium 4.5 mmol/L (3.5-5.1); Sodium 138 mmol/L (136-145); Thyroid Stimulating Hormone 2.22 uIU/mL (0.27-4.20); Total Bilirubin 0.2 mg/dL (0.15-1.2); Total Protein 7.1 g/dL (6.6-8.7); Triglycerides 304 mg/dL (0-150); VLDL Cholestrol Calculation 61 mg/dL (0-30)
[2021-12-04 16:20] LABS: Add Urine Microscopic? YES; Bilirubin Urine Neg (Negative); Blood Urine Neg (Negative); Glucose Urine UA 1+ (Normal); Ketones Urine Negative (Negative); Leukocyte Esterase Urine Negative (Negative); Nitrate Urine Negative (Negative); Protein Urine Neg (Negative); Urine Appearance SL Hazy (CLEAR); Urine Color Yellow (Yellow); Urobilinogen Urine Norm (Negative); pH Urine 5 (5-7)
[2021-12-04 16:22] LABS: Add Urine Culture? No; Bacteria Urine 1+ /hpf; Mucus Urine TRACE /hpf; Squamous Epithelial Cell Urine 25-40 /hpf (0-5); WBC Urine 0-4 /hpf (0-5)
[2021-12-04 16:26] LABS: Estmated Average Glucose 174; Hemoglobin A1C 7.7 % (4.0-6.0)
[2021-12-04 17:24] LABS: Creatinine Urine, Random 167 mg/dL (28-217); Microalbum Creatinine Ratio Ur 42 mg/dL (0-20); Microalbumin Random Urine 7 ug/dL (0-20)
== END 2021-12-04 14:42 | disposition home or self-care (01) ==
LOC: LAB 14:42
PROVIDERS: PCP Nurse Practitioner; Visit Provider Nurse Practitioner
DX: M53.3 Sacrococcygeal disorders, not elsewhere classified (principal); E11.65 Type 2 diabetes mellitus with hyperglycemia
CPT/HCPCS: 36415; 72220; 80053; 80061; 81001; 82044; 83036; 84443; 85025

== ENCOUNTER → 2021-12-18 14:13 | Outpatient (BNVA) | payer MEDICAID, SELFPAY | PROVIDERS: PCP Nurse Practitioner; Visit Provider Internal Medicine Cardiovascular Disease | DX: I47.1 Supraventricular tachycardia (principal); I10 Essential (primary) hypertension; I42.0 Dilated cardiomyopathy | CPT/HCPCS: 99214 ==

== ENCOUNTER 2022-03-16 22:16 | Emergency (ER) | payer MEDICAID, SELFPAY ==
[2022-03-16 22:32] VITALS: BP 110/74; PULSE 95; RESP 16; TEMP 36.6; O2SAT 95
[2022-03-16 23:35] LABS: Add Urine Microscopic? YES; Bilirubin Urine Neg (Negative); Blood Urine 3+ (Negative); Glucose Urine UA Norm (Normal); Ketones Urine Negative (Negative); Leukocyte Esterase Urine Negative (Negative); Nitrate Urine Negative (Negative); Protein Urine Neg (Negative); Urine Appearance Clear (CLEAR); Urine Color Yellow (Yellow); Urobilinogen Urine Norm (Negative); pH Urine 5 (5-7)
[2022-03-16 23:36] LABS: Bacteria Urine 1+ /hpf; Mucus Urine 1+ /hpf; RBC Urine 15-25 /hpf (0-2); WBC Urine 0-4 /hpf (0-5)
[2022-03-16 23:37] LABS: Add Urine Culture? No
--- NOTE | 2022-03-17 | CTR_ITS ---
PROCEDURE INFORMATION: Exam: CT Abdomen And Pelvis Without Contrast Exam date and time: 03/17/2022 12:34 AM Age: 51 years old Clinical indication: Abdominal pain; Flank; Left; Prior surgery; Surgery date: 6+ months; Surgery type: Iliac stents, tubal; Additional info: Left flank pain TECHNIQUE: Imaging protocol: Computed tomography of the abdomen and pelvis without contrast. Radiation optimization: All CT scans at this facility use at least one of these dose optimization techniques: automated exposure control; mA and/or kV adjustment per patient size (includes targeted exams where dose is matched to clinical indication); or iterative reconstruction. COMPARISON: CT chest abd pel w con* 06/15/2021 4:54 PM RADIATION DOSE METRICS: Total DLP (mGy-cm): 2095.92 FINDINGS: Tubes, catheters and devices: There is a filter in the left common and external iliac vein. Liver: Normal. No mass. Gallbladder and bile ducts: Normal. No calcified stones. No ductal dilation. Pancreas: Normal. No ductal dilation. Spleen: Normal. No splenomegaly. Adrenal glands: Normal. No mass. Kidneys and ureters: There is calcification in the mid right kidney. No hydronephrosis. Stomach and bowel: Unremarkable. No obstruction. No mucosal thickening. Appendix: No evidence of appendicitis. Intraperitoneal space: Unremarkable. No free air. No significant fluid collection. Vasculature: Unremarkable. No abdominal aortic aneurysm. Lymph nodes: Unremarkable. No enlarged lymph nodes. Urinary bladder: Unremarkable as visualized. Reproductive: There is a 3.3 cm right ovarian cyst. Bones/joints: Unremarkable. No acute fracture. Soft tissues: Unremarkable. CT/CT kidney stone [id number] IMPRESSION: There are no acute concerning abnormalities. COMMENTS: For patients with an IVC filter, recommend assessment for a management plan for the patient's IVC filter. If there is no established management plan, recommend referral to an interventional clinician on a nonemergent basis for evaluation.
[2022-03-17 00:13] VITALS: RESP 18
[2022-03-17] MEDS: ondansetron 2 mg/ML SDV 2 mL 4 MG IVP (00:13)
[2022-03-17] MEDS: HYDROmorphone 1 mg/mL INJ 1 mL IVP (00:13)
[2022-03-17 00:22] LABS: Basophils # 0.1 10^3/uL (0.0-0.1); Basophils % 0.7 %; Eosinophils # 0.2 10^3/uL (0.0-0.8); Eosinophils % 2.6 %; Hemoglobin 14.8 g/dL (11.5-15.3); Lymphocytes # 2.5 10^3/uL (0.8-4.8); Lymphocytes % 30.4 %; Mean Corpuscular HGB Conc 33.6 g/dL (30.0-36.0); Mean Corpuscular Hemoglobin 27.5 pg (28.0-34.0); Mean Corpuscular Volume 81.8 fl (81-99); Mean Platelet Volume 9.7 fL (7.4-10.4); Monocytes # 0.5 10^3/uL (0.2-0.9); Monocytes % 5.9 %; Neutrophils # 4.88 10^3/uL (1.8-7.7); Neutrophils % 59.9 %; Nucleated Red Blood Cells % 0 %; Platelet Count 240 10^3/cmm (130-400); Red Blood Count 5.38 10^6/uL (4.1-5.3); Red Cell Distribution Width 16.3 % (12.1-15.1); White Blood Count 8.2 10^3/uL (4.0-10.0)
[2022-03-17 00:44] LABS: Alanine Aminotransferase 23 U/L (0-33); Albumin Level 4.3 g/dL (3.5-5.2); Alkaline Phosphatase 131 IU/L (35-105); Aspartate Amino Transferase 22 U/L (0-32); Blood Urea Nitrogen 13 mg/dL (6-20); Calcium 9.3 mg/dL (8.5-10.5); Carbon Dioxide 23 mmol/L (22-29); Chloride 104 mmol/L (98-107); Globulin 3.1 g/dL (1.3-4.6); Glucose 123 mg/dL (65-115); Lipase 42 U/L (13-60); Osmolality Calculated 287 mOsm/kg (285-295); Sodium 138 mmol/L (136-145); Total Bilirubin 0.2 mg/dL (0.15-1.2); Total Protein 7.4 g/dL (6.6-8.7)
[2022-03-17 02:14] VITALS: BP 112/60; PULSE 72; RESP 16; O2SAT 96
--- NOTE | 2022-03-17 03:05 | ED_ITS ---
HPI - Abdominal Pain General: Chief Complaint: Abdominal Pain Stated Complaint: left side pain Time Seen by Provider: 03/16/22 23:48 Source: patient History of Present Illness: 51-year-old female here with left-sided flank pain that radiates to her groin and her left hip. At first she tells me that its been going on since this evening. Then she states she has had this pain on and off for several months. She is nauseated. She has not vomited. She has had some diarrhea evidently. She notes a mild amount of blood in the stool tonight. No fever. She has had some vaginal bleeding as well, which just started the last couple of days. MD elicited complaint: abdominal pain and flank pain Pertinent past history: other Onset (ago): hour(s) Pain Consistency: constant Location: L flank Severity: moderate Quality: stabbing Radiation: suprapubic Exacerbating factors: movement Relieving factors: nothing Associated Symptoms: Reports change in stool character, diarrhea, hematochezia and nausea; Denies chills, dyspepsia, dysuria, fever(s), hematuria, hematemesis, melena and vomiting Related Data: Date of Last Menstrual Period: 08/03/21 Review of Systems Const: Denies: fever(s) or chills Card: Denies: chest pain Resp: Denies: dyspnea GI: Reports: nausea, diarrhea, change in stool character and hematochezia; Denies: vomiting, hematemesis or melena : Denies: dysuria or hematuria Psych: Reports: anxiety PFS ED PFSH: Medical History Acute non-seasonal allergic rhinitis Acute pulmonary embolism March 12, 2020 Anxiety Anxiety and depression Asthmatic bronchitis , chronic Chest pain -has had recurrent episodes of chest pain; given her presentation and history are more suspicious that this is GI rather than cardiac related -has had extensive workup done including negative nuclear stress test in 09/2019 and Holter monitoring which showed baseline normal sinus rhythm with frequent PVCs -last Echo (06/2018): EF=45-50%, G1DD, mild global LV hypokinesis, trace MR, trace-mild TR, trace [place]; repeat Echo: EF=60%, G1DD, no RWMA, trace TR -troponins noted with negative delta of 5 -no noted ischemic changes on ECG -telemetry monitoring -VSS; continue to monitor -PUJA -may need to discuss with cardiology given persistent symptoms -D-dimer-0.64, CTA negative for PE -abd US: negative for gallbladder pathology, mild hepatic steatosis -noted TSH, lipid panel, A1c (6.8) -continue statin -appreciate Dr. Nicole's consult; outpatient EGD Chest pain syndrome Chondromalacia, right knee Controlled diabetes mellitus with hyperglycemia COPD (chronic obstructive pulmonary disease) Deep vein thrombosis (DVT) of iliac vein of left lower extremity Dermatitis Deviated septum Dilated cardiomyopathy Dysphagia Dysphasia Environmental and seasonal allergies Eustachian tube dysfunction Hiatal hernia Laryngopharyngeal reflux Left flank tenderness Lumbar pain on palpation Lumbar paraspinal muscle spasm Memory change Nasal turbinate hypertrophy Osteoarthritis Peptic ulcer Postnasal drip Pre-syncope -suspicious for BPPV -carotid US: bilateral ICA stenosis < 50% -PT evaluation -fall precautions -meclizine PRN -not anemic, no evidence of dehydration, not hypoglycemic -orthostatics negative Pulmonary emboli PVC (premature ventricular contraction) SVT (supraventricular tachycardia) Surgical History H/O arthroscopic knee surgery H/O tubal ligation History of delivery History of esophagogastroduodenoscopy (EGD) History of nuclear stress test 05/04/21 at [facility] in [place], [place] Family History Other Cancer Diabetes Heart disease Social History Smoking and tobacco status: current every day smoker cigarettes Packs smoked per day: 0.5 Quit status (tobacco): not considering quitting Second hand smoke exposure: No Smoking risk assessment/counseling performed?: Yes Alcohol intake: never Desire information about alcohol rehabilitation?: No Counseling given: No Desire information about substance/drug rehabilitation?: No Counseling given: No Adopted: No Caregiver/support person: No Lives independently: Yes Household members: children Housing: House Marital status: Single Number of children: 11 service: No Current occupational status: unemployed History of recent travel: No Current gender identity: Female Female Reproductive History: Date of last menstrual period: 08/03/21 Physical Exam Const: GENERAL APPEARANCE: cooperative, in distress (in pain) and anxious HENMT: COMMON NORMALS: normocephalic, atraumatic and Normal external nose pre sent HEAD & SCALP: normocephalic and atraumatic NOSE: Normal external nose present Eye: COMMON NORMALS: Equal, round and reactive pupils present and EOMs intact bilaterally PUPIL: Yes Equal, round and reactive pupils present Neck/C-Spine: GENERAL: Yes trachea midline Chest: CHEST: Yes Symmetrical chest wall rise Resp: COMMON NORMALS: normal respiratory effort, No use of accessory muscles and clear to auscultation bilaterally AUSCULTATION: clear to auscultation bilaterally Cardio: COMMON NORMALS: regular rate and regular rhythm RATE: regular rate RHYTHM: regular rhythm GI: COMMON NORMALS: Normal to inspection, nondistended, normoactive bowel sounds present PALPATION: Yes Tenderness to palpation present (GI) Details: LLQ : BLADDER/KIDNEY EXAM: Yes CVA tenderness on the left Back/Pelvis: GENERAL BACK: Yes CVA tenderness Neuro: WINIFRED COMA SCALE: document GCS findings Win[place] coma scale eye opening: Spontaneous [place] coma scale verbal response: Orientated [place] coma scale motor response: Obey commands [place] coma scale total score: 15 Course Vital Signs: Vital signs: Vital Signs Temperature 97.9 F 03/16/22 22:32 Pulse Rate 72 03/17/22 02:14 Respiratory Rate 16 03/17/22 02:14 Blood Pressure 112/60 03/17/22 02:14 Pulse Oximetry 96 03/17/22 02:14 MDM - Abdominal Pain Medical Decision Making CBC is normal. BMP is essentially normal. Some hematuria noted on urinalysis, but patient states that she has had some vaginal bleeding. It is otherwise normal. CT shows no acute concerning abnormalities. Her pain is better after pain medication. She will be discharged home. Lab Data : 03/17/22 00:15 03/17/22 00:15 Labs/Radiology: Radiology Impressions Abdomen/Pelvis CT 03/17/22 00:00 IMPRESSION: There are no acute concerning abnormalities. COMMENTS: For patients with an IVC filter, recommend assessment for a management plan for the patient's IVC filter. If there is no established management plan, recommend referral to an interventional clinician on a nonemergent basis for evaluation. Laboratory Results WBC 8.2 10^3/uL (4.0-10.0) 03/17/22 00:15 RBC 5.38 10^6/uL (4.1-5.3) H 03/17/22 00:15 Hgb 14.8 g/dL (11.5-15.3) 03/17/22 00:15 Hct 44.0 % (37.0-47.0) 03/17/22 00:15 MCV 81.8 fl (81-99) 03/17/22 00:15 MCH 27.5 pg (28.0-34.0) L 03/17/22 00:15 MCHC 33.6 g/dL (30.0-36.0) 03/17/22 00:15 RDW 16.3 % (12.1-15.1) H 03/17/22 00:15 Plt Count 240 10^3/cmm (130-400) 03/17/22 00:15 MPV 9.7 fL (7.4-10.4) 03/17/22 00:15 Neut % (Auto) 59.9 % 03/17/22 00:15 Lymph % (Auto) 30.4 % 03/17/22 00:15 [place] % (Auto) 5.9 % 03/17/22 00:15 Eos % (Auto) 2.6 % 03/17/22 00:15 Baso % (Auto) 0.7 % 03/17/22 00:15 Neut # (Auto) 4.88 10^3/uL (1.8-7.7) 03/17/22 00:15 Lymph # (Auto) 2.5 10^3/uL (0.8-4.8) 03/17/22 00:15 [place] # (Auto) 0.5 10^3/uL (0.2-0.9) 03/17/22 00:15 Eos # (Auto) 0.2 10^3/uL (0.0-0.8) 03/17/22 00:15 Baso # (Auto) 0.1 10^3/uL (0.0-0.1) 03/17/22 00:15 Nucleated RBC % (auto) 0 % 03/17/22 00:15 Nucleated RBCs # 0.0 /100WBC 03/17/22 00:15 Sodium 138 mmol/L (136-145) 03/17/22 00:15 Potassium 4.0 mmol/L (3.5-5.1) 03/17/22 00:15 Chloride 104 mmol/L (98-107) 03/17/22 00:15 Carbon Dioxide 23 mmol/L (22-29) 03/17/22 00:15 Anion Gap 15.0 (5-19) 03/17/22 00:15 BUN 13 mg/dL (6-20) 03/17/22 00:15 Creatinine 0.8 mg/dL (0.5-0.9) 03/17/22 00:15 GFR Calculation 75.0 mL/min (90-130) L 03/17/22 00:15 Glucose 123 mg/dL (65-115) H 03/17/22 00:15 Calculated Osmolality 287 mOsm/kg (285-295) 03/17/22 00:15 Calcium 9.3 mg/dL (8.5-10.5) 03/17/22 00:15 Total Bilirubin 0.2 mg/dL (0.15-1.2) 03/17/22 00:15 AST 22 U/L (0-32) 03/17/22 00:15 ALT 23 U/L (0-33) 03/17/22 00:15 Alkaline Phosphatase 131 IU/L (35-105) H 03/17/22 00:15 Total Protein 7.4 g/dL (6.6-8.7) 03/17/22 00:15 Albumin 4.3 g/dL (3.5-5.2) 03/17/22 00:15 Globulin 3.1 g/dL (1.3-4.6) 03/17/22 00:15 Lipase 42 U/L (13-60) 03/17/22 00:15 Urine Color Yellow (Yellow) 03/16/22 22:37 Urine Appearance Clear (CLEAR) 03/16/22 22:37 Urine pH 5 (5-7) 03/16/22 22:37 Ur Specific [place] 1.030 (1.005-1.030) 03/16/22 22:37 Urine Protein Neg (Negative) 03/16/22 22:37 Urine Glucose (UA) Norm (Normal) 03/16/22 22:37 Urine Ketones Negative (Negative) 03/16/22 22:37 Urine Blood 3+ (Negative) H 03/16/22 22:37 Urine Nitrate Negative (Negative) 03/16/22 22:37 Urine Bilirubin Neg (Negative) 03/16/22 22:37 Urine Urobilinogen Norm mg/dL (Negative) 03/16/22 22:37 Ur Leukocyte Esterase Negative (Negative) 03/16/22 22:37 Urine RBC 15-25 /hpf (0-2) H 03/16/22 22:37 Urine WBC 0-4 /hpf (0-5) H 03/16/22 22:37 Ur Squamous Epith Cells 10-15 /hpf (0-5) H 03/16/22 22:37 Amorphous Sediment Not Reportable 03/16/22 22:37 Urine Bacteria 1+ /hpf (NONE) H 03/16/22 22:37 Urine Mucus 1+ /hpf 03/16/22 22:37 Discharge Plan Discharge Patient Disposition: Home Clinical Impression: Left flank pain Condition: Stable Prescriptions: New hydrocodone-acetaminophen 5-325 mg tablet 1 tab PO Q8H PRN (Reason: pain) Qty: 7 0RF No Action cimetidine [Tagamet HB] 200 mg tablet 200 mg PO BID 0RF Rx Instructions: give at meals and bedtime diphenhydramine HCl [Benadryl Allergy] 25 mg tablet 25 mg PO DAILY PRN (Reason: Allergy Symptoms) 0RF albuterol sulfate [ProAir HFA] 90 mcg/actuation HFA aerosol inhaler 2 inh inhalation Q6H PRN (Reason: shortness of breath or wheezing) Qty: 8.5 2RF Eliquis 5 mg tablet 5 mg PO BID Qty: 60 2RF clopidogrel [Plavix] 75 mg tablet 75 mg PO DAILY Qty: 30 2RF Farxiga 10 mg tablet 10 mg PO QAM Qty: 30 2RF fenofibrate nanocrystallized [Tricor] 145 mg tablet 145 mg PO DAILY Qty: 30 2RF fluticasone propion-salmeterol [Advair Diskus] 100-50 mcg/dose blister with device 1 inh inhalation Q12H Qty: 60 2RF Rx Instructions: rinse mouth after each use ipratropium-albuterol 0.5 mg-3 mg(2.5 mg base)/3 mL solution for nebulization 3 ml inhalation Q6H PRN (Reason: shortness of breath or wheezing) Qty: 180 2RF lisinopril 20 mg tablet 20 mg PO BID Qty: 60 2RF venlafaxine [Effexor XR] 75 mg capsule,extended release 24hr 75 mg PO QAM Qty: 30 2RF topiramate [Topamax] 100 mg tablet 100 mg PO BID Qty: 60 2RF prednisone 20 mg tablet 20 mg PO DAILY Qty: 7 0RF benzonatate 200 mg capsule 200 mg PO TID PRN (Reason: cough) Qty: 20 0RF (DME) pen needle, diabetic 33 gauge x 5/32 needle See Rx Instructions .ROUTE .MEDSUPPLY Qty: 100 2RF Rx Instructions: daily nitroglycerin 0.4 mg tablet, sublingual 0.4 mg SUBLINGUAL Q5M PRN (Reason: chest pain) Qty: 25 6RF Rx Instructions: until response; do not exceed 3 doses per episode metoprolol succinate 100 mg tablet extended release 24 hr 100 mg PO BID Qty: 180 3RF (DME) blood-glucose meter [OneTouch Ultra2 Meter] Kit See Rx Instructions .Route Qty: 1 0RF Rx Instructions: As directed (DME) OneTouch Ultra Test Strip See Rx Instructions .Route Qty: 50 5RF Rx Instructions: As directed (DME) lancets [OneTouch Delica Plus Lancet] 33 gauge misc See Rx Instructions .Route Qty: 100 5RF Rx Instructions: one daily cetirizine 10 mg tablet 10 mg PO QAM Qty: 90 0RF Discharge Orders: Discharge ED (Routine); Ordered 03/17/22 Ordered By: Jordon Li Referrals: Brian Mary, [facility] [Primary Care Provider] - 1-3 days Discharge Diet: Advance as tolerated Discharge Activity: Increase activity as tolerated Patient Instructions: Flank Pain (ED) Activity Restrictions/Additional Instructions: Return for vomiting liquids or medications, fever greater than 100, worsening pain despite treatment, other concerning symptoms. Coding Level of Care Code ED Demo Event Specialist for Britt Mcrae
== END 2022-03-17 02:15 | disposition home or self-care (01) ==
PROVIDERS: Emergency Medicine; Emergency Provider Emergency Medicine; PCP Nurse Practitioner
DX: R10.9 Unspecified abdominal pain (principal); Z79.01 Long term (current) use of anticoagulants; Z79.02 Long term (current) use of antithrombotics/antiplatelets; E11.9 Type 2 diabetes mellitus without complications; J44.9 Chronic obstructive pulmonary disease, unspecified; F17.210 Nicotine dependence, cigarettes, uncomplicated
CPT/HCPCS: 74176; 80053; 81001; 83690; 85025; 96374; 96375; 99284; J1170; J2405

== ENCOUNTER 2022-05-06 14:00 | Outpatient (CLI) | payer MEDICAID, SELFPAY ==
--- NOTE | 2022-05-06 14:30 | CT_ITS ---
WS: [id number] CT LUMBAR SPINE, noncontrast. HISTORY: M54.50 - Low back pain, unspecified TECHNIQUE: Contiguous 2.5 mm axial imaging are performed. Sagittal and coronal reformats are submitte d and reviewed. All CT scans at [facility] use at least one of these dose optimization techni ques: automated exposure control; mA and/or kV adjustment per patient size (includes targeted exams w here dose is matched to clinical indication); or iterative reconstruction. IV contrast: None DLP: 4.40 mGy.cm COMPARISON: 03/17/2022 Normal lumbar alignment with no loss of disc space height or vertebral body height. No fractures. Francis ateral facet joint arthritis. L1-2: Normal. L2-3: Mild annular disc bulging asymmetric to the LEFT. Mild ligamentum flavum and facet arthritis. M ild bilateral foraminal and subarticular recess stenosis. L3-4: Mild facet joint arthritis. No stenosis. L4-5: Moderate bilateral facet joint arthritis. Facet joint fragmentation and narrowing with osteophy amee. Mild disc bulging with a central and RIGHT foraminal disc protrusion. Mild central and bilateral foraminal stenosis. Slightly greater stenosis on the RIGHT. L5-S1: Central disc protrusion with very minimal disc contact on the S1 nerve roots but no displaceme nt or high-grade stenosis. LEFT common iliac artery stent graft. CT/CT lumbar spine wo con* [id number] IMPRESSION: 1. No high-grade central stenosis. 2. Mild bilateral foraminal and subarticular recess stenosis at L2-3. 3. Central and RIGHT foraminal disc protrusion at L4-5. There is mild central and bilateral foraminal stenosis at L4-5 slightly greater on the RIGHT. 4. Small central disc protrusion at L5-S1 with minimal contact on the S1 nerve roots.
== END 2022-05-06 14:01 | disposition home or self-care (01) ==
LOC: RAD 14:01
PROVIDERS: PCP Nurse Practitioner; Visit Provider Nurse Practitioner
DX: M48.061 Spinal stenosis, lumbar region without neurogenic claudication (principal); M51.27 Other intervertebral disc displacement, lumbosacral region; M51.26 Other intervertebral disc displacement, lumbar region
CPT/HCPCS: 72131

== ENCOUNTER → 2022-05-08 16:07 | Outpatient (BNVA) | payer MEDICAID, SELFPAY | PROVIDERS: PCP Nurse Practitioner; Visit Provider Nurse Practitioner | DX: J30.89 Other allergic rhinitis (principal); E11.65 Type 2 diabetes mellitus with hyperglycemia; E78.1 Pure hyperglyceridemia; I10 Essential (primary) hypertension; M79.2 Neuralgia and neuritis, unspecified; R51.9 Headache, unspecified; U09.9 Post COVID-19 condition, unspecified; G89.29 Other chronic pain | CPT/HCPCS: 80053; 80061; 81000; 83036; 84443 ==

== ENCOUNTER → 2022-06-28 10:35 | Outpatient (BNVA) | payer MEDICAID, SELFPAY | PROVIDERS: PCP Nurse Practitioner; Visit Provider Surgery | DX: Z12.11 Encounter for screening for malignant neoplasm of colon (principal); R13.10 Dysphagia, unspecified | CPT/HCPCS: 99203 ==

== ENCOUNTER 2022-07-10 09:57 | Outpatient (CLI) | payer MEDICAID, SELFPAY ==
--- NOTE | 2022-07-10 10:15 | USCV_ITS ---
Phyllis Chpora Age: 51 Gender: F : 1970 Exam Date: 07/10/2022 10:16 Ordering Phys: Brian Mary Technologist: Olivier Lang [place]am [place] [facility] [place]ication: TYPE 2 DIABETES Risk Factors: Previous Vascular Surgery: NONE RIGHT LEFT BP: 100.0 / 65.00 BP: 103.0/ 73.00 0 0 Waveform Velocity (cm/s) Velocity (cm/s) Waveform Triphasic 89.8 Iliac Prox 67.9 Triphasic Triphasic 99.9 Iliac Mid 67.1 Triphasic Triphasic 107.6 Iliac Distal 116.9 Triphasic Triphasic 132.8 CHIEF ARCHITECT 76.1 Triphasic Triphasic 69.9 SFA Prox 78.3 Triphasic Triphasic 61.4 SFA Mid 80.5 Triphasic Triphasic 71.5 SFA Dist 65.8 Triphasic Triphasic 41.1 POP 41.9 Triphasic Triphasic 33.8 BAIT PACKER 32.6 Biphasic Biphasic 41.2 DPA 26.2 Biphasic CHARLY 1.1 1.0 FINDINGS LT 103/73 RT 100/65 RT DPA 124 RT BAIT PACKER 146 LT DPA 128 LT BAIT PACKER 120 Resting CHARLY 1.0 on the right and 1.1 on the left. Normal/near Doppler waveforms bilaterally. Normal Doppler flow velocities bilaterally. CONCLUSIONS Normal resting ABIs bilaterally. No significant arterial obstruction based on the above findings Dr Henny Holt MD [facility] (Electronically Signed) Final Date: 11 July 2022 00:03 S
== END 2022-07-10 09:58 | disposition home or self-care (01) ==
LOC: RAD 09:58
PROVIDERS: PCP Nurse Practitioner; Visit Provider Nurse Practitioner
DX: E11.65 Type 2 diabetes mellitus with hyperglycemia (principal)
CPT/HCPCS: 93925

== ENCOUNTER → 2022-08-05 16:13 | Outpatient (BNVA) | payer MEDICAID, SELFPAY | PROVIDERS: PCP Nurse Practitioner; Visit Provider Nurse Practitioner | DX: E11.65 Type 2 diabetes mellitus with hyperglycemia (principal); E78.1 Pure hyperglyceridemia; I82.522 Chronic embolism and thrombosis of left iliac vein; J30.89 Other allergic rhinitis; I10 Essential (primary) hypertension | CPT/HCPCS: 80053; 80061; 83036 ==

== ENCOUNTER 2022-08-14 09:41 | Inpatient (IN) | payer MEDICAID, SELFPAY ==
[2022-08-12 12:41] VITALS: BMI 34.8
[2022-08-14] VITALS (121 sets, daily range): BP systolic 73–116; BP diastolic 41–71; PULSE 83–124; RESP 13–32; TEMP 36.4–37.1; O2SAT 87–100; BMI 34.8
--- NOTE | 2022-08-14 07:11 | ANES.PREANE2 ---
Pre-Anesthetic Assessment Height/Weight: Height 1.8 m Weight 113.398 kg Preop Diagnosis: dysphagia Operation Date: 08/14/22 08:30 Proposed Procedures p [id number] egd/ w/balloon dial, [id number] colonoscopy R13.10,Z12.11(Not Applicable) - Jose Francisco Mni DO s Colonoscopy(Not Applicable) - Jose Francisco Min DO Familial anesthetic complications: states she stops breathing in PACU and once had a panic attack during her esophageal dilation, but doesn't have recall of the event Was Beta Ankit taken within 24 hours: N/A Was Clonidine taken within 24 hours: N/A Last intake: > 8hrs Social Tobacco and No alcohol Airway Mallampati: Class II Dentition: false Pulmonary Chronic Obstructive Pulmonary Disease CV/HEM Arrythmia (SVT) and Peripheral Vascular Disease 2019 echo?CONCLUSIONS ?1. This is a techniccally difficult study. ?2. Normal left ventricular size, systolic function with no ?diagnostic regional wall motion abnormalities. Left ventricular ?ejection fraction is estimated at 60 %. Grade 1 diastolic ?function. ?3. Normal right ventricular size and systolic function. ?4. When compared to previous echocardiogram dated 07/07/2018 ?left ventricular systolic function seems to have improved. Metabolic Diabetes Mellitus Anesthetic Plan ASA status: 3 Risk of > 500 ml blood loss (7ml/kg in children): No Medications/Allergies Home Medications Medication Instructions Recorded Confirmed Last Taken Type diphenhydramine HCl 25 mg tablet 25 mg PO DAILY PRN Allergy Symptoms 09/24/19 08/12/22 08/12/22 History (Benadryl Allergy) nitroglycerin 0.4 mg sublingual 0.4 mg sublingual Q5M PRN chest 10/24/20 08/12/22 08/12/22 Rx tablet pain #25 tabs metoprolol succinate 100 mg 100 mg PO BID #180 tabs 06/22/21 08/12/22 08/12/22 Rx tablet,extended release 24 hr albuterol sulfate 90 mcg/actuation 2 inh inhalation Q6H PRN shortness 06/21/22 08/12/22 08/12/22 Rx aerosol inhaler (ProAir HFA) of breath or wheezing #8.5 grams fluticasone 100 mcg-salmeterol 50 1 inh inhalation Q12H #60 ea 06/21/22 08/12/22 08/12/22 Rx mcg/dose blistr powdr for inhalation (Advair Diskus) fluticasone fur. 200 mcg-umeclid 1 inh inhalation DAILY #60 ea 06/21/22 08/12/22 08/12/22 Rx 62.5 mcg-vilant 25 mcg inhalat.powder (Trelegy Ellipta) ipratropium 0.5 mg-albuterol 3 mg 3 ml inhalation Q6H PRN shortness 06/21/22 08/12/22 08/12/22 Rx (2.5 mg base)/3 mL nebulization of breath or wheezing #180 mL soln apixaban 5 mg tablet (Eliquis) 5 mg PO BID #60 tabs 08/05/22 08/12/22 08/11/22 Rx cetirizine 10 mg tablet 10 mg PO QAM #90 tabs 08/05/22 08/12/22 08/12/22 Rx clopidogrel 75 mg tablet (Plavix) 75 mg PO DAILY #30 tabs 08/05/22 08/12/22 08/09/22 Rx dapagliflozin 10 mg tablet 10 mg PO QAM #30 tabs 08/05/22 08/12/22 08/05/22 Rx (Farxiga) dulaglutide 0.75 mg/0.5 mL 0.75 mg (0.5 mL) SUBCUT .weekly #2 08/05/22 08/12/22 08/12/22 Rx subcutaneous pen injector mL (Trulicity) lisinopril 20 mg tablet 20 mg PO BID #60 tabs 08/05/22 08/12/22 08/12/22 Rx peg 3350-electrolytes 236 240 ml PO Q10M PRN colon prep 08/12/22 08/12/22 08/12/22 Rx gram-22.74 gram-6.74 gram-5.86 #4,000 mL gram solution (Golytely) Allergies Allergy/AdvReac Type Severity Reaction Status Date / Time ketorolac [From Toradol] Allergy Severe ALGY-Difficulty Verified 08/12/22 12:44 Breathing tramadol Allergy Severe ALGY-Difficulty Verified 08/12/22 12:44 Breathing fluticasone [From Flonase] AdvReac ADR-Vomitin Verified 08/12/22 12:44 g metformin AdvReac ADR-Numbnes Verified 08/12/22 12:44 s [facility] Anesthesia Medical History Acute non-seasonal allergic rhinitis Acute pulmonary embolism March 12, 2020 Anxiety Anxiety and depression Asthmatic bronchitis , chronic Chest pain -has had recurrent episodes of chest pain; given her presentation and history are more suspicious that this is GI rather than cardiac related -has had extensive workup done including negative nuclear stress test in 09/2019 and Holter monitoring which showed baseline normal sinus rhythm with frequent PVCs -last Echo (06/2018): EF=45-50%, G1DD, mild global LV hypokinesis, trace MR, trace-mild TR, trace [place]; repeat Echo: EF=60%, G1DD, no RWMA, trace TR -troponins noted with negative delta of 5 -no noted ischemic changes on ECG -telemetry monitoring -VSS; continue to monitor -PUJA -may need to discuss with cardiology given persistent symptoms -D-dimer-0.64, CTA negative for PE -abd US: negative for gallbladder pathology, mild hepatic steatosis -noted TSH, lipid panel, A1c (6.8) -continue statin -appreciate Dr. Nicole's consult; outpatient EGD Chest pain syndrome Chondromalacia, right knee COPD (chronic obstructive pulmonary disease) Deep vein thrombosis (DVT) of iliac vein of left lower extremity Dermatitis Deviated septum Diabetes mellitus with hyperglycemia, without long-term current use of insulin Dilated cardiomyopathy Dysphagia Dysphasia Environmental and seasonal allergies Eustachian tube dysfunction Hiatal hernia Laryngopharyngeal reflux Left flank tenderness Lumbar pain on palpation Lumbar paraspinal muscle spasm Memory change Nasal turbinate hypertrophy Osteoarthritis Peptic ulcer Postnasal drip Pre-syncope -suspicious for BPPV -carotid US: bilateral ICA stenosis < 50% -PT evaluation -fall precautions -meclizine PRN -not anemic, no evidence of dehydration, not hypoglycemic -orthostatics negative Pulmonary emboli PVC (premature ventricular contraction) SVT (supraventricular tachycardia) Surgical History H/O arthroscopic knee surgery H/O tubal ligation History of delivery History of esophagogastroduodenoscopy (EGD) History of nuclear stress test 05/04/21 at [facility] in [place], [place] Family History Other Cancer Diabetes Heart disease Social History Smoking and tobacco status: current every day smoker cigarettes Packs smoked per day: 0.5 Quit status (tobacco): not considering quitting Second hand smoke exposure: No Smoking risk assessment/counseling performed?: Yes Alcohol intake: never Desire information about alcohol rehabilitation?: No Counseling given: No Desire information about substance/drug rehabilitation?: No Counseling given: No Adopted: No Caregiver/support person: No Lives independently: Yes Household members: children Housing: House Marital status: Single Number of children: 11 service: No Current occupational status: unemployed History of recent travel: No Current gender identity: Female Female Reproductive History Date of last menstrual period: 06/12/22 Data Anesthesia Cardiac Studies: Echocardiogram Ultrasound 11/01/19 Sestamibi Stress Test (Cardiology) 09/22/19 Holter Monitor 12/12/19
[2022-08-14] MEDS: sodium chloride 0.9% 1,000 ML 30 ML IV (07:20)
[2022-08-14 07:31] LABS: Glucose Point of Care 101 mg/dL (70-110)
--- NOTE | 2022-08-14 08:54 | PM.HP ---
Providers/Chief Complaint Primary Care Provider: TAZ Iverson Chief Complaint: R13.10 History of Present Illness Phyllis Chopra is a 51 year old female here for EGD with possible balloon dilation and colonoscopy Medications/Allergies Home Medications Medication Instructions Recorded Confirmed Last Taken Type diphenhydramine HCl 25 mg tablet 25 mg PO DAILY PRN Allergy Symptoms 09/24/19 08/14/22 06/13/21 History (Benadryl Allergy) nitroglycerin 0.4 mg sublingual 0.4 mg sublingual Q5M PRN chest 10/24/20 08/14/22 Unknown Rx tablet pain #25 tabs metoprolol succinate 100 mg 100 mg PO BID #180 tabs 06/22/21 08/14/22 08/13/22 Rx tablet,extended release 24 hr albuterol sulfate 90 mcg/actuation 2 inh inhalation Q6H PRN shortness 06/21/22 08/14/22 Unknown Rx aerosol inhaler (ProAir HFA) of breath or wheezing #8.5 grams fluticasone 100 mcg-salmeterol 50 1 inh inhalation Q12H #60 ea 06/21/22 08/14/22 Unknown Rx mcg/dose blistr powdr for inhalation (Advair Diskus) fluticasone fur. 200 mcg-umeclid 1 inh inhalation DAILY #60 ea 06/21/22 08/14/22 Unknown Rx 62.5 mcg-vilant 25 mcg inhalat.powder (Trelegy Ellipta) ipratropium 0.5 mg-albuterol 3 mg 3 ml inhalation Q6H PRN shortness 06/21/22 08/14/22 Unknown Rx (2.5 mg base)/3 mL nebulization of breath or wheezing #180 mL soln apixaban 5 mg tablet (Eliquis) 5 mg PO BID #60 tabs 08/05/22 08/14/22 08/11/22 Rx cetirizine 10 mg tablet 10 mg PO QAM #90 tabs 08/05/22 08/14/22 Unknown Rx clopidogrel 75 mg tablet (Plavix) 75 mg PO DAILY #30 tabs 08/05/22 08/14/22 08/09/22 Rx dapagliflozin 10 mg tablet 10 mg PO QAM #30 tabs 08/05/22 08/14/22 08/05/22 Rx (Farxiga) dulaglutide 0.75 mg/0.5 mL 0.75 mg (0.5 mL) SUBCUT .weekly #2 08/05/22 08/14/22 08/12/22 Rx subcutaneous pen injector mL (Trulicity) lisinopril 20 mg tablet 20 mg PO BID #60 tabs 08/05/22 08/14/22 08/12/22 Rx peg 3350-electrolytes 236 240 ml PO Q10M PRN colon prep 08/12/22 08/14/22 08/13/22 Rx gram-22.74 gram-6.74 gram-5.86 #4,000 mL gram solution (Golytely) cimetidine 200 mg tablet 200 mg PO BID 08/14/22 08/14/22 08/13/22 History Allergies Allergy/AdvReac Type Severity Reaction Status Date / Time ketorolac [From Toradol] Allergy Severe ALGY-Difficulty Verified 08/14/22 07:20 Breathing tramadol Allergy Severe ALGY-Difficulty Verified 08/14/22 07:20 Breathing fluticasone [From Flonase] AdvReac ADR-Vomitin Verified 08/14/22 07:20 g metformin AdvReac ADR-Numbnes Verified 08/14/22 07:20 s PFSH Acute PFSH: Medical History Acute non-seasonal allergic rhinitis Acute pulmonary embolism March 12, 2020 Anxiety Anxiety and depression Asthmatic bronchitis , chronic Chest pain -has had recurrent episodes of chest pain; given her presentation and history are more suspicious that this is GI rather than cardiac related -has had extensive workup done including negative nuclear stress test in 09/2019 and Holter monitoring which showed baseline normal sinus rhythm with frequent PVCs -last Echo (06/2018): EF=45-50%, G1DD, mild global LV hypokinesis, trace MR, trace-mild TR, trace NC; repeat Echo: EF=60%, G1DD, no RWMA, trace TR -troponins noted with negative delta of 5 -no noted ischemic changes on ECG -telemetry monitoring -VSS; continue to monitor -PUJA -may need to discuss with cardiology given persistent symptoms -D-dimer-0.64, CTA negative for PE -abd US: negative for gallbladder pathology, mild hepatic steatosis -noted TSH, lipid panel, A1c (6.8) -continue statin -appreciate Dr. Nicole's consult; outpatient EGD Chest pain syndrome Chondromalacia, right knee COPD (chronic obstructive pulmonary disease) Deep vein thrombosis (DVT) of iliac vein of left lower extremity Dermatitis Deviated septum Diabetes mellitus with hyperglycemia, without long-term current use of insulin Dilated cardiomyopathy Dysphagia Dysphasia Environmental and seasonal allergies Eustachian tube dysfunction Hiatal hernia Laryngopharyngeal reflux Left flank tenderness Lumbar pain on palpation Lumbar paraspinal muscle spasm Memory change Nasal turbinate hypertrophy Osteoarthritis Peptic ulcer Postnasal drip Pre-syncope -suspicious for BPPV -carotid US: bilateral ICA stenosis < 50% -PT evaluation -fall precautions -meclizine PRN -not anemic, no evidence of dehydration, not hypoglycemic -orthostatics negative Pulmonary emboli PVC (premature ventricular contraction) SVT (supraventricular tachycardia) Surgical History H/O arthroscopic knee surgery H/O tubal ligation History of delivery History of esophagogastroduodenoscopy (EGD) History of nuclear stress test 05/04/21 at [facility] in [place], [place] Family History Other Cancer Diabetes Heart disease Social History Smoking and tobacco status: current every day smoker cigarettes Packs smoked per day: 0.5 Quit status (tobacco): not considering quitting Second hand smoke exposure: No Smoking risk assessment/counseling performed?: Yes Alcohol intake: never Desire information about alcohol rehabilitation?: No Counseling given: No Desire information about substance/drug rehabilitation?: No Counseling given: No Adopted: No Caregiver/support person: No Lives independently: Yes Household members: children Housing: House Marital status: Single Number of children: 11 service: No Current occupational status: unemployed History of recent travel: No Current gender identity: Female Female Reproductive History: Date of last menstrual period: 06/12/22 Vitals/I&O/Wt Last Vital Signs Temp 97.5 F L 08/14/22 07:15 Pulse 89 08/14/22 07:15 Resp 16 08/14/22 07:15 BP 116/71 08/14/22 07:15 Pulse Ox 96 08/14/22 07:15 O2 Del Method 08/14/22 07:15 Weight last 48 hrs Weight 250 lb A&P Assessment and plan (1) Dysphagia: (2) Colon cancer screening: Plan EGD with possible balloon dilation and colonoscopy Attestations Medical Necessity Statement*: Home Coding Level of Care Code Acute Phototypesetting Equipment Monitor for Chg Fwd Diagnoses Dysphagia R13.10 Colon cancer screening Z12.11
[2022-08-14 09:33] LABS: ABG PCO2 45.6 mmHg (35-45); ABG PH Result 7.26 (7.35-7.45); Arterial Blood Gas Hematocrit 43.1 % (37-47); Base Excess ABG -6.5 mmol/L (-2.0-2.0); Blood Gas Allen Test Pos; Blood Gas Operator Identificat glc; Blood Gas Sample Site Brachial, right; Blood Gas Sample Type Arterial; Carboxyhemoglobin 2.9 %THgb (0.4-20.1); HCO3 ABG 20.5 mmol/L (22-26); HGB O2 Sat 96.5 % (95-100); Ionized Calcium Level - ABG 1.2 mmol/L (1.1-1.4); Methemoglobin 0.8 % (0.4-1.5); Oxygen Device NRB; Oxygen Saturation ABG > 100.0; Potassium Level - ABG 3.3 mmol/L (3.5-5.0); Total Hemoglobin 14.1 g/dL (12-16)
[2022-08-14 09:39] LABS: Basophils % 0.3 %; Eosinophils # 0.1 10^3/uL (0.0-0.8); Hematocrit 39.3 % (37.0-47.0); Hemoglobin 12.5 g/dL (11.5-15.3); Lymphocytes # 7.5 10^3/uL (0.8-4.8); Lymphocytes % 60.4 %; Mean Corpuscular HGB Conc 31.8 g/dL (30.0-36.0); Mean Corpuscular Hemoglobin 27.9 pg (28.0-34.0); Mean Corpuscular Volume 87.7 fl (81-99); Mean Platelet Volume 10.7 fL (7.4-10.4); Monocytes # 0.7 10^3/uL (0.2-0.9); Monocytes % 5.2 %; Neutrophils # 4.09 10^3/uL (1.8-7.7); Neutrophils % 32.9 %; Nucleated Red Blood Cells % 0 %; Platelet Count 176 10^3/cmm (130-400); Red Blood Count 4.48 10^6/uL (4.1-5.3); Red Cell Distribution Width 15.5 % (12.1-15.1); White Blood Count 12.5 10^3/uL (4.0-10.0)
--- NOTE | 2022-08-14 09:44 | ECG_ITS ---
[facility] Test Date: 2022-08-14 Pat Name: Phyllis Chopra Department: Room: [facility] Gender: Female [employer] H[employer] Developer: : 1970 Requested By: Holland Mcdermott Order Number: [id number] Berny MD: Shivani Matute M.D. Measurements Intervals [place] Rate: 89 P: 53 FL: 175 QRS: 27 QRSD: 108 T: 54 QT: 392 QTc: 479 Interpretive Statements SINUS RHYTHM INTERPRETATION BASED ON A DEFAULT AGE OF 40 YEARS Compared to ECG 04/27/2021 21:23:06 Myocardial infarct finding no longer present Electronically Signed On 08-14-2022 10:38:33 SPOT MACHINE OPERATOR by Shivani Matute M.D. [email or web address]
--- NOTE | 2022-08-14 09:45 | XR_ITS ---
WS: [id number] XR chest 1V portable [id number] REASON FOR EXAM: follow up FINDINGS: Considerable overlying artifact. The heart and mediastinum appear to be within normal limits. The lungs are fully expanded. No significant lung opacities. XR/XR chest 1V portable [id number] IMPRESSION: No acute chest abnormality.
[2022-08-14 09:56] LABS: Slide Review Slide Review Perform
[2022-08-14 09:57] LABS: Albumin Level 2.9 g/dL (3.5-5.2); Alkaline Phosphatase 96 U/L (35-105); Blood Urea Nitrogen 11 mg/dL (6-20); Calcium 7.6 mg/dL (8.5-10.5); Carbon Dioxide 20 mmol/L (22-29); Chloride 114 mmol/L (98-107); Creatinine Clr Calc Pharmacy 128.8831; Globulin 2.3 g/dL (1.3-4.6); Glomerular Filtration Rate 87.5 mL/min (90-130); Glucose 82 mg/dL (65-115); Magnesium 1.6 mg/dL (1.7-2.3); Osmolality Calculated 290 mOsm/kg (285-295); Sodium 141 mmol/L (136-145); Total Bilirubin 0.3 mg/dL (0.15-1.2); Total Protein 5.2 g/dL (6.6-8.7)
[2022-08-14 09:58] LABS: Anion Gap 11.2 (5-19); Aspartate Amino Transferase 47 U/L (0-32)
[2022-08-14 09:59] LABS: Alanine Aminotransferase 45 U/L (0-33); Potassium 4.2 mmol/L (3.5-5.1)
--- NOTE | 2022-08-14 09:59 | USCV_ITS ---
Phyllis Chopra Age: 51 Gender: F : 1970 Exam Date: 08/14/2022 10:56 Ordering Phys: Holland Hall MD Technologist: SINGH [place] [facility] [place]ication: POST CODE BP: 82 / 42 HR: 88 Rhythm: Sinus Technical Quality: Adequate MEASUREMENTS (Male / Female) Normal Values 2D ECHO LVOT Diameter 2.0 cm LV Ejection Fraction MOD 2C 53.7 % LV Ejection Fraction 2C AL 54.1 % LA Diameter 2.9 cm LA Width 2.8 cm LA Height 4.5 cm RA Width 3.6 cm RA Height 4.4 cm Aorta at Sinotubular Diameter 2.5 cm IVC Diameter 1.2 cm M-MODE Aortic Annulus Diameter 2.8 cm LA Ao Ratio MM 0.9 MV E Point Septal Separation 0.7 cm DOPPLER AV Peak Velocity 122.0 cm/s LVOT Peak Velocity 72.0 cm/s AV Area Cont Eq vti 1.7 cm squared AV Area Cont Eq pk 1.9 cm squared MV Peak Velocity 77.0 cm/s MV Area PHT 3.7 cm squared Mitral E to A Ratio 1.2 MV E' Velocity 36.0 cm/s Mitral E to MV E' Ratio 5.5 Mitral E to LV E' Lateral Ratio 5.2 Mitral E to LV E' Septal Ratio 6.0 TR Peak Velocity 210.1 cm/s TR Peak Gradient 17.7 mmHg TR Mean Velocity 183.9 cm/s TR Mean Gradient 13.4 mmHg TR Velocity Time Integral 59.0 cm TV Peak E Velocity 46.0 cm/s Right Atrial Pressure 3.0 mmHg Pulmonary Artery Systolic Pressu 20.7 mmHg PV Peak Velocity 99.0 cm/s RV Acceleration Time 0.1 s RV Ejection Time 0.3 s RV AcT/ET 0.4 FINDINGS Left Ventricle Normal left ventricular size and wall thickness, with no regional wall motion abnormalities. Mildly decreased left ventricular systolic function. Left ventricular ejection fraction is estimated at 50-55 %. Mild global hypokinesis. Normal diastolic function. Right Ventricle Normal right ventricular size and systolic function. RVSP could not be calculated due to incomplete tricuspid regurgitation velocity profile. Right Atrium Normal right atrial size. Left Atrium Normal left atrial size. Mitral Valve Structurally normal mitral valve. No mitral valve stenosis. No mitral valve regurgitation. Aortic Valve Structurally normal trileaflet aortic valve. No aortic valve stenosis. No aortic valve regurgitation. Tricuspid Valve Structurally normal tricuspid valve. No tricuspid valve stenosis. Trace tricuspid valve regurgitation. Pulmonic Valve Structurally normal pulmonic valve. No pulmonary valve stenosis. Trace pulmonary valve regurgitation. Pericardium No pericardial effusion. Aorta Normal size aortic root and proximal ascending aorta. IVC Normal IVC dimension with >50% respiratory change of the inferior vena cava. CONCLUSIONS 1. Normal left ventricular size and wall thickness, with no regional wall motion abnormalities. Mildly decreased left ventricular systolic function. Left ventricular ejection fraction is estimated at 50-55 %. Mild global hypokinesis. Normal diastolic function. 2. Normal right ventricular size and systolic function. 3. No significant valvular abnormality. 4. Direct comparison to previous study is not possible due to technical differences in study. Shivani Matute MD (Electronically Signed) Final Date: 14 August 2022 13:54 S
--- NOTE | 2022-08-14 10:11 | P.HP_ITS ---
Providers/Chief Complaint Admitting Physician: Holland Hall MD Primary Care Provider: Brian Mary, BIT SETTER-C Chief Complaint: R13.10 History of Present Illness Phyllis Chopra is a 51 year old female who is undergoing an EGD and colonoscopy when during the colonoscopy she coded. I discussed her case with the surgeon who is doing the colonoscopy as well as anesthesia. She had received routine doses of propofol. She had not had any trouble with the EGD. Unfortunately rhythm strips from prior to the event are not recoverable. They reports she did not have any significant bradycardia. She did have respiratory issues with cyanosis occur. During the code she received epinephrine. CPR was given. Full report is pending but she achieved ROSC relatively quickly. During the recovery phase she had quite a bit of ectopy. She became alert, responsive and was extubated in the endoscopy suite and transferred to the ICU for further evaluation. It appears that compressions were started at 917, she received 1 dose of epinephrine, and at pulse check at 922 a pulse was found. Patient reports she had no significant problems other than chronic bronchitis. She does smoke. She denies any significant wheezing prior to the endoscopy. On arrival to the ICU she was significantly anxious. She was neurologically intact. Saturations were appropriate. She was slightly hypotensive with a systolic of about 85 so a small bolus of saline was given. She reports some jacquelyn st pain, which appears to be musculoskeletal in etiology. She was very anxious and feeling short of breath but after a small dose of Ativan she is much more conversant, less anxious, and not complaining of significant shortness of breath. Oxygen amount given during the code has been able to be weaned quickly. Quite a bit of secretions have been noted. Review of Systems General: Reports: 10 or more systems reviewed and unremarkable except in HPI and below Const: Denies: fever(s) or chills Eyes: Denies: change in vision ENMT: Denies: throat pain Card: Reports: chest pain Resp: Reports: dyspnea and productive cough GI: Denies: abdominal pain : Denies: flank pain Musc: Denies: neck pain Skin/Breast: Denies: rash Neuro: Denies: headache(s) Psych: Reports: anxiety; Denies: depression Endo: Denies: polyuria [place]/Lymph: Denies: easy bruising All/Imm: Denies: urticaria Medications/Allergies Home Medications Medication Instructions Recorded Confirmed Last Taken Type diphenhydramine HCl 25 mg tablet 25 mg PO DAILY PRN Allergy Symptoms 09/24/19 08/14/22 06/13/21 History (Benadryl Allergy) nitroglycerin 0.4 mg sublingual 0.4 mg sublingual Q5M PRN chest 10/24/20 08/14/22 Unknown Rx tablet pain #25 tabs metoprolol succinate 100 mg 100 mg PO BID #180 tabs 06/22/21 08/14/22 08/13/22 Rx tablet,extended release 24 hr albuterol sulfate 90 mcg/actuation 2 inh inhalation Q6H PRN shortness 06/21/22 08/14/22 Unknown Rx aerosol inhaler (ProAir HFA) of breath or wheezing #8.5 grams fluticasone 100 mcg-salmeterol 50 1 inh inhalation Q12H #60 ea 06/21/22 08/14/22 Unknown Rx mcg/dose blistr powdr for inhalation (Advair Diskus) fluticasone fur. 200 mcg-umeclid 1 inh inhalation DAILY #60 ea 06/21/22 08/14/22 Unknown Rx 62.5 mcg-vilant 25 mcg inhalat.powder (Trelegy Ellipta) ipratropium 0.5 mg-albuterol 3 mg 3 ml inhalation Q6H PRN shortness 06/21/22 08/14/22 Unknown Rx (2.5 mg base)/3 mL nebulization of breath or wheezing #180 mL soln apixaban 5 mg tablet (Eliquis) 5 mg PO BID #60 tabs 08/05/22 08/14/22 08/11/22 Rx cetirizine 10 mg tablet 10 mg PO QAM #90 tabs 08/05/22 08/14/22 Unknown Rx clopidogrel 75 mg tablet (Plavix) 75 mg PO DAILY #30 tabs 08/05/22 08/14/22 08/09/22 Rx dapagliflozin 10 mg tablet 10 mg PO QAM #30 tabs 08/05/22 08/14/22 08/05/22 Rx (Farxiga) dulaglutide 0.75 mg/0.5 mL 0.75 mg (0.5 mL) SUBCUT .weekly #2 08/05/22 08/14/2222 Rx subcutaneous pen injector mL (Trulicity) lisinopril 20 mg tablet 20 mg PO BID #60 tabs 08/05/22 08/14/22 08/12/22 Rx peg 3350-electrolytes 236 240 ml PO Q10M PRN colon prep 08/12/22 08/14/22 08/13/22 Rx gram-22.74 gram-6.74 gram-5.86 #4,000 mL gram solution (Golytely) cimetidine 200 mg tablet 200 mg PO BID 08/14/22 08/14/22 08/13/22 History Allergies Allergy/AdvReac Type Severity Reaction Status Date / Time ketorolac [From Toradol] Allergy Severe ALGY-Difficulty Verified 08/14/22 07:20 Breathing tramadol Allergy Severe ALGY-Difficulty Verified 08/14/22 07:20 Breathing fluticasone [From Flonase] AdvReac ADR-Vomitin Verified 08/14/22 07:20 g metformin AdvReac ADR-Numbnes Verified 08/14/22 07:20 s PFSH Acute PFSH: Medical History Acute non-seasonal allergic rhinitis Acute pulmonary embolism March 12, 2020 Anxiety Anxiety and depression Asthmatic bronchitis , chronic Chest pain -has had recurrent episodes of chest pain; given her presentation and history are more suspicious that this is GI rather than cardiac related -has had extensive workup done including negative nuclear stress test in 09/2019 and Holter monitoring which showed baseline normal sinus rhythm with frequent PVCs -last Echo (06/2018): EF=45-50%, G1DD, mild global LV hypokinesis, trace MR, trace-mild TR, trace MT; repeat Echo: EF=60%, G1DD, no RWMA, trace TR -troponins noted with negative delta of 5 -no noted ischemic changes on ECG -telemetry monitoring -VSS; continue to monitor -PUJA -may need to discuss with cardiology given persistent symptoms -D-dimer-0.64, CTA negative for PE -abd US: negative for gallbladder pathology, mild hepatic steatosis -noted TSH, lipid panel, A1c (6.8) -continue statin -appreciate Dr. Nicole's consult; outpatient EGD Chest pain syndrome Chondromalacia, right knee COPD (chronic obstructive pulmonary disease) Deep vein thrombosis (DVT) of iliac vein of left lower extremity Dermatitis Deviated septum Diabetes mellitus with hyperglycemia, without long-term current use of insulin Dilated cardiomyopathy Dysphagia Dysphasia Environmental and seasonal allergies Eustachian tube dysfunction Hiatal hernia Laryngopharyngeal reflux Left flank tenderness Lumbar pain on palpation Lumbar paraspinal muscle spasm Memory change Nasal turbinate hypertrophy Osteoarthritis Peptic ulcer Postnasal drip Pre-syncope -suspicious for BPPV -carotid US: bilateral ICA stenosis < 50% -PT evaluation -fall precautions -meclizine PRN -not anemic, no evidence of dehydration, not hypoglycemic -orthostatics negative Pulmonary emboli PVC (premature ventricular contraction) SVT (supraventricular tachycardia) Surgical History H/O arthroscopic knee surgery H/O tubal ligation History of delivery History of esophagogastroduodenoscopy (EGD) History of nuclear stress test 05/04/21 at [facility] in [place], [place] Family History Other Cancer Diabetes Heart disease Social History Smoking and tobacco status: current every day smoker cigarettes Packs smoked per day: 0.5 Quit status (tobacco): not considering quitting Second hand smoke exposure: No Smoking risk assessment/counseling performed?: Yes Alcohol intake: never Desire information about alcohol rehabilitation?: No Counseling given: No Desire information about substance/drug rehabilitation?: No Counseling given: No Adopted: No Caregiver/support person: No Lives independently: Yes Household members: children Housing: House Marital status: Single Number of children: 11 service: No Current occupational status: unemployed History of recent travel: No Current gender identity: Female Female Reproductive History: Date of last menstrual period: 06/12/22 Vitals/I&O/Wt Last Vital Signs Temp 97.5 F L 08/14/22 07:15 Pulse 89 08/14/22 07:15 Resp 16 08/14/22 07:15 BP 116/71 08/14/22 07:15 Pulse Ox 96 08/14/22 07:15 O2 Del Method 08/14/22 07:15 08/13/22 08/14/22 08/14/22 22:59 06:59 14:59 Intake Total 800 / 800 Balance 800 / 800 Weight last 48 hrs Weight 113.398 kg Physical Exam Narrative: General exam alert female, currently alert and oriented complaining of some chest discomfort HEENT: Atraumatic and normocephalic. Pupils equally round. Oropharynx clear. Neck is supple no lymphadenopathy thyromegaly Cardiovascular regular rate and rhythm, no murmur Lungs a few expiratory wheezes. Coarse breath sounds at the bases Abdomen is soft with positive bowel sounds. No obvious organomegaly exam is deferred Extremities no cyanosis clubbing or edema, cap refill brisk. Skin no rash Neuro no obvious focal deficits. Data 08/14/22 09:25 08/14/22 09:25 Other Labs: Chest x-ray no infiltrate EKG demonstrates normal sinus rhythm, normal axis, no acute changes Initial ABG demonstrated pH of 7.26, PO2 over 300 PCO2 in the mid 40s. This was directly after the code. Magnesium slightly low at 1.6, calcium 7.6, LFTs slightly high at 47 and 45. Albumin 2.9 A&P Assessment and plan (1) Cardiac arrest: Patient with cardiac arrest, during colonoscopy. Etiology not completely clear. No rhythm strips to analyze directly before episode. She recovered quickly with ROSC after short course of CPR and 1 dose of epinephrine. She had significant secretions, and wheezing afterwards. Cannot completely rule out aspiration although not significant amount of secretions noted on EGD done prior to the colonoscopy. Has a past history of cardiomyopathy, cardiac arrhythmia with SVT, past history of pulmonary embolism and DVT. Check echocardiogram, troponins, serial EKGs Cardiology consult secondary to cardiac arrest Check venous duplex lower extremities, dimer If dimer is elevated consider CTA Close monitoring in ICU overnight Some mild hypotension following event. Monitoring closely. Bolus given. Suspect element of dehydration with preparation for endoscopy as well as anesthetics (2) COPD (chronic obstructive pulmonary disease): Concern of COPD exacerbation Prednisone, DuoNeb (3) Diabetes mellitus with hyperglycemia, without long-term current use of insulin: Sliding scale insulin (4) SVT (supraventricular tachycardia): Patient with history of ablation x2 and previous cardiac work-up in 2020 Past history of nonischemic cardiomyopathy with low ejection fraction but this appears to have improved to normal on an ultrasound in 2020. Plan History of esophageal dilation, dysphagia. St eval Tobacco dependency. Encourage abstinence. Refuses nicotine patch currently Multiple other medical problems as outlined in past medical history Full code Lovenox for DVT prophylaxis Attestations Medical Necessity Statement*: Will require greater than 2 midnight stay for evaluation and treatment of cardiac arrest, receiving CPR Critical Care Time: The high probability of a clinically significant, sudden or life threatening deterioration of the patient's [cardiac, pulmonary] system(s) required my full and direct attention, intervention and personal management. The critical care time is as shown. 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
[2022-08-14] MEDS: sodium chloride 0.9% 250 ML IV (10:12)
[2022-08-14] MEDS: ipratropium-albuterol 3 mL Neb INHALATION ×4 (10:13→19:30)
[2022-08-14] MEDS: magnesium sulfate premix 2 GM/50 ML PIGGYBACK IV (10:15)
[2022-08-14] MEDS: enoxaparin 40 mg/0.4 mL Syringe SUBCUT (10:21)
[2022-08-14] MEDS: famotidine 20 mg/2 mL INJ IVP ×2 (10:21→21:55)
--- NOTE | 2022-08-14 10:38 | USCV_ITS ---
Phyllis Chopra Age: 51 Gender: F : 1970 Exam Date: 08/14/2022 11:15 Ordering Phys: Holland Hall MD Technologist: CT [place] [facility] [place]: swelling PROCEDURES: The venous duplex Doppler examination of both lower extremities was performed in the standard fashion. In addition, the posterior tibial and peroneal trunk were evaluated. Bilaterally, the common femoral, superficial femoral, profunda femoral, popliteal, posterior tibial, greater saphenous veins, and the peroneal trunk were identified and interrogated in the standard fashion. These veins were found to be easily compressible with spontaneous blood flow. No evidence of insufficiency or thrombus noted. FINDINGS: normal us CONCLUSIONS No evidence of right lower extremity DVT. No evidence of left lower extremity DVT. Nathaniel Villa MD (Electronically Signed) Final Date: 14 August 2022 14:03 S
[2022-08-14 10:48] LABS: Troponin T (5th) Once 35 ng/L (0-10)
[2022-08-14] MEDS: LORazepam 2 mg/mL INJ 1 mL 0.5 MG IVP (10:48)
[2022-08-14 11:17] LABS: D Dimer 0.91 ug/mIFEU (0-0.59)
--- NOTE | 2022-08-14 11:30 | PC.CHAP ---
Pastoral Care Encounter/Spiritual Assessment Type of Contact [] Declined district adviser visit [] Patient/Family/Request visit [] Outpatient visit [] Follow-up visit [] Physician referral [] Code/Alert [x] Routine visit [] Staff referral [] Actively dying [] Patient sleeping [] Family support [] [] Out of room [] Palliative care [] [] Receiving care in room [] Pre-surgical visit [] Trauma [] Long length of stay [x] ICU visit [x] Other: new PT... upset stomach ... Relational/Emotional Strength [] Patient feels connected with others/family/visitors/staff [] Distress [] Loneliness/isolation [] Abandonment Spirituality of Patient [] Person of Catie [] Attends Anabaptist of their Catie [] Believes in Prayer [] Reads Bible or Restoration materials [] There are Spiritual issues to be addressed Controls Project Engineer Interventions [] Prayer [] Active listening [] Non-anxious presence [] Spiritual/emotional support [] Crisis/trauma care [] Spiritual counseling [] Bereavement support [] Provided bereavement packet [] Provided Bible/devotional materials [] Provided toy/stuffed animal, coloring book to patient or family member [] Provided Communion [] Anointing/[place] [] Salvation [] Completed spiritual assessment [] Other: Impact on Illness or Injury [] Angry [] Fearful [] Anxious [] Often cries [] Exhaustion [] Unable to work [] Unable to attend sikhism [] Unable to walk/stand [] Unable to read [] Unable to drive [] Unable to eat/drink [] Unable to sleep [] Unable to be with family [] Patient intubated [] Other: Summary Time spent with patient
[2022-08-14] MEDS: predniSONE 20 mg Tablet 40 MG PO (11:48)
[2022-08-14 12:07] LABS: Troponin 5 2HR 331.6 ng/L (0-10); Troponin 5 2HR Delta 296.6 ABS# (0-10)
[2022-08-14 12:09] LABS: Glucose Point of Care 117 mg/dL (70-110)
--- NOTE | 2022-08-14 12:12 | CTR_ITS ---
PROCEDURE INFORMATION: Exam: CTA Chest With Contrast Exam date and time: 08/14/2022 11:47 PM Age: 51 years old Clinical indication: Other: Post code. Patient HX: Patient coded yesterday during outpatient gi procedure. Elevated d dimer with troponin of 296. TECHNIQUE: Imaging protocol: Computed tomographic angiography of the chest with contrast. 3D rendering (Not supervised by radiologist): MIP and/or 3D reconstructed images were created by the technologist. Radiation optimization: All CT scans at this facility use at least one of these dose optimization techniques: automated exposure control; mA and/or kV adjustment per patient size (includes targeted exams where dose is matched to clinical indication); or iterative reconstruction. Contrast material: OMNI 350; Contrast volume: 100 ml; Contrast route: INTRAVENOUS (IV); COMPARISON: CT angio chest PE prot [id number] 05/28/2021 8:52 AM RADIATION DOSE METRICS: Total DLP (mGy-cm): 438.32 FINDINGS: Pulmonary arteries: No pulmonary embolus or aortic dissection. Great vessels off aortic arch: Normal variant common origin of the left common carotid artery and innominate artery consistent with bovine arch. Aorta: See Pulmonary arteries finding. Other arteries: Direct origin of the left vertebral artery from the aortic arch which is a normal variant seen in 1% of the population. Lungs: Mild left basilar atelectasis and/or pneumonia. Right discoid atelectasis and/or scarring. Pleural spaces: Unremarkable. No pneumothorax. No pleural effusion. Heart: Unremarkable. No cardiomegaly. No pericardial effusion. Lymph nodes: Unremarkable. No enlarged lymph nodes. Bones/joints: Mild thoracic spondylosis. Soft tissues: Unremarkable. CT/CT angio chest PE protcl [id number] IMPRESSION: 1. Mild left basilar atelectasis and/or pneumonia. 2. No pulmonary embolus or aortic dissection.
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
[2022-08-14] MEDS: enoxaparin 80 mg/0.8 mL Syringe 70 MG SUBCUT (14:24)
[2022-08-14] MEDS: sodium chloride 0.9% 1,000 ML 75 ML IV (14:24)
--- NOTE | 2022-08-14 14:51 | PC.NURSE ---
Code status: This nurse explained in detail and extensively discussed code status with patient after patient stated, Its a good thing you guys didn't follow my DNR. Patient stated she wanted to remain a Full code which is what is already listed in the chart.
--- NOTE | 2022-08-14 15:25 | ECG_ITS ---
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 Measurements Intervals [place] Rate: 97 P: 59 SD: 144 QRS: -52 QRSD: 106 T: 26 QT: 376 QTc: 479 Interpretive Statements SINUS RHYTHM LEFT AXIS DEVIATION [QRS AXIS < -30] LOW QRS VOLTAGE IN EXTREMITY LEADS [QRS DEFLECTION < 0.5 mV IN LIMB LEADS] MINIMAL ST DEPRESSION [0.025+ mV ST DEPRESSION] INTERPRETATION BASED ON A DEFAULT AGE OF 40 YEARS Compared to ECG 08/14/2022 09:44:44 Left-axis deviation now present Low QRS voltage now present ST (T wave) deviation now present Electronically Signed On 08-14-2022 18:07:09 ENGINE ASSEMBLY SUPERVISOR by Bill Will M.D. [id number]
--- NOTE | 2022-08-14 16:00 | P.ANESPOST_ITS ---
Inpatient post-anesthesia follow up: Airway intact: Yes Vital signs: Temperature 98 F Pulse Rate 79 Respiratory Rate 13 Blood Pressure 105/63 Pulse Oximetry 97 Oxygen Delivery Me thod Room Air Oxygen Flow Rate 1 Fraction of Inspir ed Oxygen Hydration adequate: Yes Nausea and vomiting: No Pain level: 6 Mental status: Baseline Additional Comments: Note entered late on 08/20. Patient evaluated by me on Aug 14 after event Called to GI lab urgently by charge nurse. Upon entering room, CPR was being performed. Chest compressions were actively being given and Haile Trinh CRNA was in position with Laryngoscope about to place ETT, which was successfully placed and bag masking was initiated. Staff informed me that patient had gone apneic and she was unable to be bag masked and was de-satting. At that time, Dr. Min had felt for a femoral pulse, which was not palpable and CPR was started. Per staff, time from apnea to CPR was 30 seconds. I instructed staff to give 1 mg of epinephrine. Patient's EKG leads had fallen off and I instructed staff to get her on the defbrillator's school bus monitor while chest compressions continued. Nikki Hernandez had been called, and further staff arrived. Dr. Villaafna took over running the code. Another 1 mg of epinephrine was given and CPR continued. At 2 minutes a rhythm analysis on defibrillator monitor showed Sinus Rhythm with multiple PVCs. Pulse was then identified. Orders to get CBC, CMP, troponins, ABG, EKG and CXR were given by Dr. Villafana. A blood pressure on the patient was obtained, which was severely elevated. The patient then began to emerge neurologically from the event with good muscular effort. She was following commands, such as sticking out her tongue and squeezing my fingers. During her agitation she coughed/bucked and minimal frothy fluid came up through ETT, which as suctioned by RT. Patient successfully extubated and brought to ICU. Personal debriefing after the event with Haile Trinh CRNA, he described the preceding events as follows:The patient had oral secretions coming from her mouth and nose after having just completed her EGD (at this point in time the colonoscopy was already in progress). Gayathri MCKNIGHT suctioned the patient's oropharynx at which point she began to cough violently and then she went apneic. Given that patient was light enough during her anesthesia to be coughing, respiratory depression-induced apnea is less likely. If patient is light enough to cough, she would be more than likely be light enough to breathe. Given the secretions and coughing, I suspect this was laryngospasm that did not break with bag masking. Patient preopertively stated she had an event that freaked out the staff with a previous esophageal dilation. A laryngospam may have occurred in that incident and perhaps was successfully broken with positive pressure ventilation or perhaps deepening of the anesthetic. I spoke with the patient in the ICU and answered any of her questions.
[2022-08-14 16:02] LABS: Troponin 5 6HR 838.6 ng/L (0-10)
[2022-08-14 16:03] LABS: Troponin 5 6HR Delta 803.6 ng/L (0-12)
[2022-08-14 17:57] LABS: Glucose Point of Care 238 mg/dL (70-110)
[2022-08-14] MEDS: insulin lispro 100 unit/1 mL SUBCUT ×2 (18:33→21:50)
[2022-08-14] MEDS: budesonide 0.5 mg/2 mL Neb INHALATION (19:30)
[2022-08-14 21:44] LABS: Glucose Point of Care 160 mg/dL (70-110)
--- NOTE | 2022-08-14 23:35 | PC.NURSE ---
Pt transported to CT on continuos monitoring, in CT pt screamed when L 20 AC IV was flushed, this RN flushed IV and osmar blood from IV, pt uncooperative with IV use, pt educated that the IV was in place, pt transported back to ICU where a 20G was started in the R. FA. New IV also flushes and draws blood with ease. Will transport pt back to CT.
[2022-08-15] VITALS (39 sets, daily range): BP systolic 101–139; BP diastolic 50–87; PULSE 79–122; RESP 14–31; TEMP 36.3–37.1; O2SAT 90–98
[2022-08-15] MEDS: iohexol 350 mg/mL 500 mL Btl (per mL) IV (00:31)
[2022-08-15] MEDS: enoxaparin 120 mg/0.8 mL Syringe 110 MG SUBCUT (02:42)
[2022-08-15] MEDS: LORazepam 2 mg/mL INJ 1 mL 0.5 MG IVP ×2 (02:43→21:51)
[2022-08-15 03:20] LABS: Basophils % 0.3 %; Eosinophils % 0.1 %; Hematocrit 37.3 % (37.0-47.0); Hemoglobin 11.9 g/dL (11.5-15.3); Lymphocytes % 20.1 %; Mean Corpuscular HGB Conc 31.9 g/dL (30.0-36.0); Mean Corpuscular Hemoglobin 27.6 pg (28.0-34.0); Mean Corpuscular Volume 86.5 fl (81-99); Mean Platelet Volume 10.4 fL (7.4-10.4); Monocytes # 0.6 10^3/uL (0.2-0.9); Monocytes % 6.2 %; Neutrophils % 72.9 %; Nucleated Red Blood Cells % 0 %; Platelet Count 176 10^3/cmm (130-400); Red Blood Count 4.31 10^6/uL (4.1-5.3); Red Cell Distribution Width 15.3 % (12.1-15.1); White Blood Count 9.9 10^3/uL (4.0-10.0)
[2022-08-15 03:43] LABS: Alanine Aminotransferase 51 U/L (0-33); Albumin Level 3.4 g/dL (3.5-5.2); Alkaline Phosphatase 101 U/L (35-105); Anion Gap 12.8 (5-19); Aspartate Amino Transferase 43 U/L (0-32); Blood Urea Nitrogen 13 mg/dL (6-20); Calcium 8.6 mg/dL (8.5-10.5); Carbon Dioxide 21 mmol/L (22-29); Chloride 107 mmol/L (98-107); Creatinine Clr Calc Pharmacy 128.8831; Globulin 2.3 g/dL (1.3-4.6); Glomerular Filtration Rate 87.5 mL/min (90-130); Glucose 112 mg/dL (65-115); Osmolality Calculated 285 mOsm/kg (285-295); Potassium 3.8 mmol/L (3.5-5.1); Sodium 137 mmol/L (136-145); Total Bilirubin 0.2 mg/dL (0.15-1.2); Total Protein 5.7 g/dL (6.6-8.7)
--- NOTE | 2022-08-15 07:29 | XACV_ITS ---
Exam Room: 2 Ht: 180 cm Wt: 113 kg BSA: 2.42 m2 Gender: Female : 1970 Exam Priority: Routine Procedure(s): Procedure Description: Diagnostic procedure Procedure Description: Coronary Angiography Diagnostic Cath Status: Urgent Diagnostic Findings * 51-year-old woman with past medical history of hypertension, type 2 diabetes mellitus, history of SVT ablations x2 and history of nonischemic cardiomyopathy. He also has history of DVT and PE and left iliac vein stenting. She presented for outpatient EGD and colonoscopy and became bradycardic apneic followed by cardiac arrest followed by her return of spontaneous circulation after 5 minutes of CPR. EKG with no significant ST-T wave changes. Troponin T increased from 35 -->839 at 6 hours. * Angiography shows a right coronary dominant system. * Normal-sized left main with no stenosis that divides into left anterior descending artery circumflex artery. * Normal-sized circumflex artery with high obtuse marginal without any stenosis. * Left anterior descending artery is of normal caliber and wraps around the apex. There is no stenosis. RONALD-2 flow noted. * Dominant right coronary artery with minor luminal irregularities. 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 Conclusions 1. Dominant right coronary artery with minor luminal irregularities. 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 2. Left anterior descending artery is of normal caliber and wraps around the apex. There is no stenosis. RONALD-2 flow noted. Recommendations * Return to inpatient for close monitoring and routine cath care. * Continue optimal medical management. Meticulous diabetes control. Pressures Phase:Rest AO : 98 / 75 ( 86 ) @ 9:28:00 AM Clinical Evaluation EBL: 5mL-10mL Procedural Details Procedure Consent Obtained. Admit Source: In Patient. Pre-Procedure Time Out. Identified patient by full name and date of as verbalized by the patient/guarantor. Does the consent match the physician's order: Yes. Accurate & Complete Informed Consent: Yes. Inpatient/Outpatient History & Physical on Chart: Yes. If H&P is completed, is and addenduem needed: No; If yes, is the addendum complete: No. Visualize and Verify Site with Patient/Guarantor: N/A. Relevant Radiology Images available: N/A. The risks, benefits, and alternatives of sedation and/or procedure were discussed by physician. The patient agrees to continue. Procedure started. [facility] Clinical Fraility Score: 3: Managing Well. Retail Representative Indications: Resuscitated Cardaic Arrest. Chest Pain Symptom Assessment: Non-anginal Chest Pain. Cardiovascular Instability: No,. Correct patient, site and procedure confirmed by cath team. Current diagnosis: post cardiac arrest, NSTEM. PERRLA. Strong, equal hand inspector metal fabricating bilaterally. Lungs clear x 5 lobes. IV Site on Arrival: 20 gauge in the left hand. IV Site on Arrival: 20 gauge in the left anticubital. IV Fluids: 0.9% NaCl at KVO. 0 mL infused prior to cardiac cath lab radiology technologist. Pre Procedural Pulses: right radial was 2+. Pre Procedural Pulses: bilateral dorsalis pedis was 1+. Oxygen started at 2liters/min via nasal canula. right radial was prepped with chloroprep then draped in the usual sterile fashion. right groin was prepped with chloroprep then draped in the usual sterile fashion. Physician notified. Baseline sample Acquired. HR: 121 BPM. Physician arrived. Physician scrubbed in. Immediate Pre-Procedure Time Out. Correct Patient: Yes; Correct Procedure: Yes; Correct Site: Yes; Correct Patient Position: Yes; Correct Supplies: Yes; Dried Flammable Prep: Yes; Blood Products Available: N/A;. Lidocaine 1% infiltrated to the right radial. IV Site on Arrival: 22 gauge in the right hand. Arterial access obtained. A 5 lao TIG catheter in over wire. Multiple views taken of left coronary artery. Catheter redirected to the RCA. Multiple views taken of right coronary artery. Catheter out over wire. A TR Band was successful obtaining hemostatsis at the Right Radial artery insertion site. Post Procedure: Pulses reassessed and unchanged. PERRLA. Strong, equal hand inspector metal fabricating bilaterally. No VTE prophylaxis required. Medication's Wasted: Lidocaine 1% = 2 mL. Medication's Wasted: Nitro = 49.8 mg. Medication's Wasted: Heparin = 1000 units. Medication's Wasted: Other = Fentanyl 25 mg. Total IV fluids: 50 mL. Post-op diagnosis: Normal Coronaries. Complications: none. Estimated blood loss: 5mL-10mL. Responsiveness - Normal response to verbal stimuli; alert and oriented, PERRLA. Airway - Unaffected, no intervention required; spontaneous ventilation. Circulation: W/N/L, pulses unchanged. Nausea/Vomiting: No. Procedure completed. Patient transferred by stretcher to ICU. Vital chart was stopped. Access Site Site: Right Radial artery Sheath Size: 6 Fr Hemostasis Method: TR Band Hemostasis Success: Successful Procedure Medications Start: 9:09 AM Stop: 9:09 AM Medication: Versed Amount: 0.5 mg Route: I.V. Start: 9:09 AM Stop: 9:09 AM Medication: Fentanyl Amount: 25 mcg Route: I.V. Start: 9:12 AM Stop: 9:12 AM Medication: Versed Amount: 0.5 mg Route: I.V. Start: 9:17 AM Stop: 9:17 AM Medication: Fentanyl Amount: 25 mcg Route: I.V. Start: 9:20 AM Stop: 9:20 AM Medication: Nitrogylcerin Amount: 200 mcg Route: I.A. Start: 9:21 AM Stop: 9:21 AM Medication: Versed Amount: 0.5 mg Route: I.V. Start: 9:22 AM Stop: 9:22 AM Medication: Benadryl Amount: 50 mg Route: I.V. Start: 9:31 AM Stop: 9:31 AM Medication: Versed Amount: 0.5 mg Route: I.V. Start: 9:31 AM Stop: 9:31 AM Medication: Fentanyl Amount: 25 mcg Route: I.V. I, the attending physician, have reviewed and verified all procedure medications. Yes, all medications given per verbal order History/Risk Factors Hypertension: Yes Dyslipidemia: No Peripheral Arterial Disease (PAD): No Myocardial Infarction ([place]): No Obesity: No Tobacco Use: Current/Recent(w/in 1 year) Prior Interventions PCI: No CABG: No Valve Surgery: No Report Signatures Finalized by Shivani Matute MD on 08/19/2022 03:27 PM
[2022-08-15] MEDS: sodium chloride 0.9% 1,000 ML 75 ML IV (08:10)
[2022-08-15] MEDS: predniSONE 20 mg Tablet 40 MG PO (08:12)
[2022-08-15 08:18] LABS: Glucose Point of Care 97 mg/dL (70-110)
[2022-08-15 08:40] LABS: Hepatitis A Antibody IgM Non-Reactive (Nonreactive); Hepatitis B Core IgM Non-Reactive (Nonreactive); Hepatitis C Virus Antibody Non-Reactive (Nonreactive)
[2022-08-15] MEDS: clopidogrel 75 mg Tablet PO (08:40)
--- NOTE | 2022-08-15 08:58 | PM.PN ---
Subjective Subjective: Phyllis reports that her chest hurts some. She is otherwise coughing less, breathing better. Events of yesterday discussed again with the patient. Medications: Reviewed: Yes Vitals/I&O/Wt Last Vital Signs Temp 98.7 F 08/14/22 18:35 Pulse 92 08/15/22 06:00 Resp 14 08/15/22 06:00 BP 106/54 08/15/22 06:00 Pulse Ox 92 08/15/22 06:00 O2 Del Method 08/15/22 05:30 O2 Flow Rate 1 08/14/22 19:30 08/14/22 08/15/22 08/15/22 22:59 06:59 14:59 Intake Total 240 / 1790 700 / 2490 153.75 / 153.75 Output Total 500 / 750 250 / 1000 Balance -260 / 1040 450 / 1490 153.75 / 153.75 Weight last 48 hrs Weight 113.398 kg Weight 113.398 kg Physical Exam Narrative: General exam alert female, no distress Neck is supple no lymphadenopathy thyromegaly Cardiovascular regular rate and rhythm, no murmur Lungs clear Abdomen is soft with positive bowel sounds. No obvious organomegaly Extremities no cyanosis clubbing or edema, cap refill brisk. Skin no rash Neuro no obvious focal deficits. Data 08/15/22 02:04 08/15/22 02:04 A&P Assessment and plan (1) Cardiac arrest: Patient with cardiac arrest, during colonoscopy. Etiology not completely clear. No rhythm strips to analyze directly before episode. She recovered quickly with ROSC after short course of CPR and 1 dose of epinephrine. She had significant secretions, and wheezing afterwards. Cannot completely rule out aspiration although not significant amount of secretions noted on EGD done prior to the colonoscopy. Has a past history of cardiomyopathy, cardiac arrhythmia with SVT, past history of pulmonary embolism and DVT. Echocardiogram demonstrates preserved EF EKG is not diagnostic Troponin elevated significantly CTA no evidence of pulmonary embolism, venous duplex no evidence of DVT Appreciate cardiology consultation. Likely angiogram today. Soft blood pressure yesterday. Improved today. Restart metoprolol, 12.5 mg now and then reassess whether this dose can be increased. She was taking 50 mg twice daily at home. She was not taking lisinopril consistently (2) COPD (chronic obstructive pulmonary disease): Concern of COPD exacerbation Continue prednisone, DuoNeb, budesonide (3) Diabetes mellitus with hyperglycemia, without long-term current use of insulin: Sliding scale insulin (4) SVT (supraventricular tachycardia): Patient with history of ablation x2 and previous cardiac work-up in 2020 Past history of nonischemic cardiomyopathy with low ejection fraction but this appears to have improved to normal on an ultrasound in 2020. Restart metoprolol Plan Musculoskeletal chest discomfort following cardiac arrest. Add oxycodone. History of esophageal dilation, dysphagia. St eval completed. Diet changed appropriately. Tobacco dependency. Encourage abstinence. Refuses nicotine patch currently Multiple other medical problems as outlined in past medical history Full code Lovenox for DVT prophylaxis Probable transfer out of ICU today Attestations Medical Necessity Statement*: Needs continued hospitalization for evaluation of etiology of cardiac arrest Coding Level of Care Code Acute Business Machine Mechanic for Britt Mcrae Diagnoses Cardiac arrest I46.9 COPD (chronic obstructive pulmonary disease) J44.9 Diabetes mellitus with hyperglycemia, without long-term current use of insulin E11.65 SVT (supraventricular tachycardia) I47.1
[2022-08-15 09:04] LABS: Hepatitis B Surface Antigen Non-Reactive (Nonreactive)
--- NOTE | 2022-08-15 09:09 | W.PM.OPSUD ---
Surgery/Procedure H&P Update DATE OF PROCEDURE: August 15, 2022 DATE H&P PERFORMED: 08/15/22 H&P UPDATE INFORMATION: I have reviewed H&P completed within last 30 days, I have examined patient prior to procedure, No changes to prior documentation and Changes to prior documentation as noted here PREOP DIAGNOSIS: NSTEMI, post cardiac arrest PRIMARY INDICATION FOR PROCEDURE: NSTEMI, post cardiac arrest PLANNED PROCEDURE: Left heart cathetarization PATIENT REASSESSED PRIOR TO SEDATION, WITH NO CHANGE NOTED: Yes PHYSICAL EXAM: alert, oriented x 3, clear to auscultation bilaterally and regular rate & rhythm AIRWAY EVAL/ANESTHESIA PLAN: normal airway, ASA III, Monitored Anesthesia, Local Anesthesia, Risks, benefits & alternatives of sedation and/or procedure discussed and Patient agrees to continue as planned
[2022-08-15] MEDS: famotidine 20 mg/2 mL INJ IVP ×2 (10:29→21:41)
[2022-08-15] MEDS: sodium chloride 0.9% 1,000 ML 100 ML IV ×2 (10:29→18:32)
[2022-08-15 11:08] LABS: Glucose Point of Care 120 mg/dL (70-110)
[2022-08-15] MEDS: ipratropium-albuterol 3 mL Neb INHALATION ×3 (11:27→21:26)
--- NOTE | 2022-08-15 12:34 | PC.CHAP ---
Pastoral Care Encounter/Spiritual Assessment Type of Contact [] Declined cryptanalyst visit [] Patient/Family/Request visit [] Outpatient visit [] Follow-up visit [] Physician referral [] Code/Alert [x] Routine visit [] Staff referral [] Actively dying [] Patient sleeping [] Family support [] [] Out of room [] Palliative care [] [] Receiving care in room [] Pre-surgical visit [] Trauma [] Long length of stay [x] ICU visit [x] Other: PT very sore..from resuscitation. Relational/Emotional Strength [] Patient feels connected with others/family/visitors/staff [] Distress [] Loneliness/isolation [] Abandonment Spirituality of Patient [] Person of Catie [] Attends Rastafari of their Catie [] Believes in Prayer [] Reads Bible or Restorationist materials [] There are Spiritual issues to be addressed Softball Core Molder Interventions [x] Prayer [] Active listening [] Non-anxious presence [] Spiritual/emotional support [] Crisis/trauma care [] Spiritual counseling [] Bereavement support [] Provided bereavement packet [] Provided Bible/devotional materials [] Provided toy/stuffed animal, coloring book to patient or family member [] Provided Communion [] Anointing/[place] [] Salvation [x] Completed spiritual assessment [] Other: Impact on Illness or Injury [] Angry [] Fearful [] Anxious [] Often cries [] Exhaustion [] Unable to work [] Unable to attend scientology [] Unable to walk/stand [] Unable to read [] Unable to drive [] Unable to eat/drink [] Unable to sleep [] Unable to be with family [] Patient intubated [] Other: Summary Time spent with patient
[2022-08-15] MEDS: metoprolol tartrate 25 mg Tablet 12.5 MG PO ×2 (13:03→14:25)
[2022-08-15] MEDS: oxyCODONE 5 mg IR Tab/Cap PO ×2 (14:24→19:53)
--- NOTE | 2022-08-15 14:26 | PC.NURSE ---
Wasted 1.5 mg/ 0.75 ml Ativan on 08/14/22 at 1048 AM with Ruby Freitas RN.
--- NOTE | 2022-08-15 14:38 | PM.PN ---
Subjective Subjective: Patient seen and examined. She is awake and in good spirits. She reports chest pain from compressions. No other complaints Vitals/I&O/Wt Last Vital Signs Temp 98.8 F 08/15/22 10:30 Pulse 110 H 08/15/22 14:00 Resp 16 08/15/22 14:24 BP 113/64 08/15/22 14:00 Pulse Ox 97 08/15/22 14:24 O2 Del Method 08/15/22 14:00 O2 Flow Rate 1 08/14/22 19:30 08/14/22 08/15/22 08/15/22 22:59 06:59 14:59 Intake Total 240 / 1790 700 / 2490 393.75 / 393.75 Output Total 500 / 750 250 / 1000 700 / 700 Balance -260 / 1040 450 / 1490 -306.25 / -306.25 Weight last 48 hrs Weight 250 lb Weight 250 lb Physical Exam Narrative: General: No acute distress, awake alert and oriented x3 Cardiovascular: Tachycardic Respiratory: Equal chest rise bilaterally, no use of accessory muscles Abdomen: Soft, nontender, nondistended Data 08/15/22 02:04 08/15/22 02:04 A&P Assessment and plan (1) NSTEMI (non-ST elevated myocardial infarction): (2) Cardiac arrest: (3) COPD (chronic obstructive pulmonary disease): Plan Pain control Regular diet AM labs Hospitalist and cardiology following Will likely discharge in the morning Attestations Medical Necessity Statement*: Patient requires at least 1 more night in the hospital for cardiac monitoring and work-up Coding Level of Care Code Acute Analytical Chemistry Teacher for Britt Mcrae Diagnoses NSTEMI (non-ST elevated myocardial infarction) I21.4 Cardiac arrest I46.9 COPD (chronic obstructive pulmonary disease) J44.9
--- NOTE | 2022-08-15 14:58 | PC.NURSE ---
TR band removed 1435. Delayed removal due to first attempt at removing air resulted in leakage. Clear bandage applied with no leaking at time of this note. Pulses remained throughout band removal.
--- NOTE | 2022-08-15 16:07 | PC.NURSE ---
Patient transferred to [facility]. Patient family and belongings at bedside. Patient resting in bed comfortably. Patient chart left with nurse Osmani at bedside. Patient stated she wanted to go outside and smoke and then come back to her room. Patient advised against this. Smoking cessation education provided again with family at bedside. This nurse offered to contact provider for nicotine patch. Patient declined at that time.
--- NOTE | 2022-08-15 16:15 | PC.NURSE ---
received pt from icu small bruise and small swelling note on right wrist s/p tr band removal. pt stated it is slightly tender to touch and numb. radial pulse is palpated and palpable+3,skin around right forearm and hand is warm. dressing is dry and intact. pt stated she wants to go out and smoke.educated pt that she is unable to smoke on our facility per hospital policy.offerred nicotine but pt refused.
[2022-08-15 16:21] LABS: Glucose Point of Care 195 mg/dL (70-110)
[2022-08-15] MEDS: insulin lispro 100 unit/1 mL SUBCUT (18:28)
[2022-08-15 20:38] LABS: Glucose Point of Care 116 mg/dL (70-110)
[2022-08-15] MEDS: apixaban 5 mg Tablet PO (20:40)
[2022-08-15] MEDS: metoprolol tartrate 25 mg Tablet PO (20:40)
[2022-08-15] MEDS: budesonide 0.5 mg/2 mL Neb INHALATION (21:26)
[2022-08-16] VITALS (8 sets, daily range): BP systolic 105–122; BP diastolic 63–75; PULSE 76–90; RESP 13–17; TEMP 36.6–36.7; O2SAT 92–97
[2022-08-16] MEDS: acetaminophen 325 mg Tablet 650 MG PO (02:36)
[2022-08-16 02:53] LABS: Basophils % 0.5 %; Eosinophils % 0.5 %; Hematocrit 38.4 % (37.0-47.0); Hemoglobin 12.3 g/dL (11.5-15.3); Lymphocytes # 2.7 10^3/uL (0.8-4.8); Lymphocytes % 34.7 %; Mean Corpuscular Hemoglobin 27.2 pg (28.0-34.0); Mean Corpuscular Volume 84.8 fl (81-99); Mean Platelet Volume 10.1 fL (7.4-10.4); Monocytes # 0.6 10^3/uL (0.2-0.9); Monocytes % 7.6 %; Neutrophils # 4.37 10^3/uL (1.8-7.7); Neutrophils % 56.3 %; Nucleated Red Blood Cells % 0 %; Platelet Count 168 10^3/cmm (130-400); Red Blood Count 4.53 10^6/uL (4.1-5.3); Red Cell Distribution Width 15.5 % (12.1-15.1); White Blood Count 7.8 10^3/uL (4.0-10.0)
[2022-08-16 03:25] LABS: Alanine Aminotransferase 40 U/L (0-33); Albumin Level 3.5 g/dL (3.5-5.2); Alkaline Phosphatase 106 U/L (35-105); Aspartate Amino Transferase 28 U/L (0-32); Blood Urea Nitrogen 10 mg/dL (6-20); Calcium 9.1 mg/dL (8.5-10.5); Carbon Dioxide 22 mmol/L (22-29); Chloride 112 mmol/L (98-107); Creatinine Clr Calc Pharmacy 128.8831; Globulin 2.5 g/dL (1.3-4.6); Glomerular Filtration Rate 87.5 mL/min (90-130); Glucose 112 mg/dL (65-115); Osmolality Calculated 294 mOsm/kg (285-295); Sodium 142 mmol/L (136-145); Total Bilirubin 0.2 mg/dL (0.15-1.2)
[2022-08-16] MEDS: sodium chloride 0.9% 1,000 ML 100 ML IV (04:14)
[2022-08-16 06:23] LABS: Glucose Point of Care 104 mg/dL (70-110)
--- NOTE | 2022-08-16 08:26 | P.DS_ITS ---
Discharge Providers Date of Admission: 08/14/22 09:41 Date of Discharge: August 16, 2022 Attending Provider at Admission: Holland Hall MD Attending Provider at Discharge: Jose Francisco Min DO Primary Care Provider: TAZ Iverson Diagnoses at Discharge Discharge Diagnosis (1) NSTEMI (non-ST elevated myocardial infarction): Status: Acute (2) Cardiac arrest: Status: Acute (3) COPD (chronic obstructive pulmonary disease): Status: Acute Reason for Visit Reason for Visit: R13.10 Hospital Course Hospital Course Phyllis is a 51-year-old white female who presented to the hospital for an EGD and colonoscopy as an outpatient. She underwent EGD without difficulty but during colonoscopy she developed cyanosis and pulselessness requiring cardiopulmonary resuscitation. After 1 cycle of CPR and a dose of epinephrine she achieved ROSC. She was intubated during this time but in the recovery period was extubated. No significant arrhythmia was noted prior to the event but telemetry recovery was not possible. In the recovery. She had quite a bit of ectopy prior to going to sinus tachycardia. She had some hypotension following the event. She was transitioned to the ICU and closely monitored. Troponin was noted to rise but EKG had no significant changes. Magnesium was slightly low and supplemented. Echocardiogram was performed which demonstrated preserved EF. Chest x-ray demonstrated no infiltrate. CTA showed no evidence of pulmonary embolism. This was done secondary to a slightly elevated dimer, recently taken off Eliquis for endoscopy, prior history of pulmonary embolism. Cardiology consultation was obtained, and recommended angiogram which was completed the following day demonstrating no obstructive coronary disease. She was also treated for COPD exacerbation following a cardiac arrest. On August 16 she was feeling much better. She had some chest discomfort where CPR performed. She had no evidence of arrhythmia. I discussed her case with cardiology in detail and they will follow-up with the patient in about a month, her primary will see in the next 3 to 5 days. It was thought the event she had was likely respiratory in nature Physical Exam Narrative: General exam no distress Neck is supple no lymphadenopathy thyromegaly Cardiovascular regular rhythm without murmur Lungs diminished breath sounds bilateral but no wheezes or crackles Abdomen is soft with positive bowel sounds Extremities no cyanosis clubbing or edema Skin no rash Neuro no focal deficits Discharge Data Studies Completed and Pending Completed Studies During Hospitalization Category Date Time Status CTA chest [CT angio chest PE protcl [id number]] Routine Cat Scan 08/14/22 12:12 Completed XR chest 1V portable [id number] Stat Exams 08/14/22 09:45 Completed Pathology: Surgical [PTH] Routine Pth 08/14/22 09:44 [place] [id number] Routine Ultrasound 08/14/22 10:38 Completed CV. echo complete* [id number] Routine Ultrasound 08/14/22 09:59 Completed Pending at discharge Category Date Time Status FINANCIAL AID OFFICER request for service Routine Exams 08/15/22 07:29 Taken Radiology Impressions Chest X-Ray 08/14/22 09:45 IMPRESSION: No acute chest abnormality. Chest CTA 08/14/22 12:12 IMPRESSION: 1. Mild left basilar atelectasis and/or pneumonia. 2. No pulmonary embolus or aortic dissection. Laboratory Results WBC 7.8 10^3/uL (4.0-10.0) 08/16/22 02:25 RBC 4.53 10^6/uL (4.1-5.3) 08/16/22 02:25 Hgb 12.3 g/dL (11.5-15.3) 08/16/22 02:25 Hct 38.4 % (37.0-47.0) 08/16/22 02:25 MCV 84.8 fl (81-99) 08/16/22 02:25 MCH 27.2 pg (28.0-34.0) L 08/16/22 02:25 MCHC 32.0 g/dL (30.0-36.0) 08/16/22 02:25 RDW 15.5 % (12.1-15.1) H 08/16/22 02:25 Plt Count 168 10^3/cmm (130-400) 08/16/22 02:25 MPV 10.1 fL (7.4-10.4) 08/16/22 02:25 Neut % (Auto) 56.3 % 08/16/22 02:25 Lymph % (Auto) 34.7 % 08/16/22 02:25 [place] % (Auto) 7.6 % 08/16/22 02:25 Eos % (Auto) 0.5 % 08/16/22 02:25 Baso % (Auto) 0.5 % 08/16/22 02:25 Neut # (Auto) 4.37 10^3/uL (1.8-7.7) 08/16/22 02:25 Lymph # (Auto) 2.7 10^3/uL (0.8-4.8) 08/16/22 02:25 [place] # (Auto) 0.6 10^3/uL (0.2-0.9) 08/16/22 02:25 Eos # (Auto) 0.0 10^3/uL (0.0-0.8) 08/16/22 02:25 Baso # (Auto) 0.0 10^3/uL (0.0-0.1) 08/16/22 02:25 Nucleated RBC % (auto) 0 % 08/16/22 02:25 Nucleated RBCs # 0.0 /100WBC 08/16/22 02:25 D-Dimer 0.91 ug/mIFEU (0-0.59) H 08/14/22 10:56 Specimen Type Arterial 08/14/22 09:25 Sample Site Brachial, right 08/14/22 09:25 ABG pH 7.26 (7.35-7.45) L 08/14/22 09:25 ABG pCO2 45.6 mmHg (35-45) H 08/14/22 09:25 ABG pO2 319.0 mmHg (80.0-100.0) H 08/14/22 09:25 ABG HCO3 20.5 mmol/L (22-26) L 08/14/22 09:25 ABG O2 Saturation > 100.0 08/14/22 09:25 ABG Base Excess -6.5 mmol/L (-2.0-2.0) L 08/14/22 09:25 Power Test Pos 08/14/22 09:25 A-a O2 Gradient Not Reportable 08/14/22 09:25 Hematocrit 43.1 % (37-47) 08/14/22 09:25 Hgb O2 Saturation 96.5 % (95-100) 08/14/22 09:25 Carboxyhemoglobin 2.9 %THgb (0.4-20.1) 08/14/22 09:25 Methemoglobin 0.8 % (0.4-1.5) 08/14/22 09:25 Total Hemoglobin 14.1 g/dL (12-16) 08/14/22 09:25 Sodium 142.0 mmol/L (131-143) 08/14/22 09:25 Potassium 3.3 mmol/L (3.5-5.0) L 08/14/22 09:25 Glucose 144.0 mg/dL (70-115) H 08/14/22 09:25 Ionized Calcium 1.2 mmol/L (1.1-1.4) 08/14/22 09:25 O2 Delivery Device Nrb 08/14/22 09:25 O2 Liters/Min 15.0 % 08/14/22 09:25 Wedding Designer ID glc 08/14/22 09:25 Sodium 142 mmol/L (136-145) 08/16/22 02:25 Potassium 4.0 mmol/L (3.5-5.1) 08/16/22 02:25 Chloride 112 mmol/L (98-107) H 08/16/22 02:25 Carbon Dioxide 22 mmol/L (22-29) 08/16/22 02:25 Anion Gap 12.0 (5-19) 08/16/22 02:25 BUN 10 mg/dL (6-20) 08/16/22 02:25 Creatinine 0.7 mg/dL (0.5-0.9) 08/16/22 02:25 GFR Calculation 87.5 mL/min (90-130) L 08/16/22 02:25 Glucose 112 mg/dL (65-115) 08/16/22 02:25 POC Glucose 104 mg/dL (70-110) 08/16/22 06:11 Calculated Osmolality 294 mOsm/kg (285-295) 08/16/22 02:25 Calcium 9.1 mg/dL (8.5-10.5) 08/16/22 02:25 Magnesium 2.0 mg/dL (1.7-2.3) 08/15/22 02:04 Total Bilirubin 0.2 mg/dL (0.15-1.2) 08/16/22 02:25 AST 28 U/L (0-32) 08/16/22 02:25 ALT 40 U/L (0-33) H 08/16/22 02:25 Alkaline Phosphatase 106 U/L (35-105) H 08/16/22 02:25 Troponin T Gen 5 ng/L 35 ng/L (0-10) H 08/14/22 09:25 Troponin T 120 Minute 331.6 ng/L (0-10) H 08/14/22 11:25 Delta Troponin T 296.6 ABS# (0-10) H* 08/14/22 11:25 Troponin T Hi Sens 6Hr 838.6 ng/L (0-10) H 08/14/22 15:16 Troponin T Hi Sens 6Hr Delta 803.6 ng/L (0-12) H* 08/14/22 15:16 Total Protein 6.0 g/dL (6.6-8.7) L 08/16/22 02:25 Albumin 3.5 g/dL (3.5-5.2) 08/16/22 02:25 Globulin 2.5 g/dL (1.3-4.6) 08/16/22 02:25 Hepatitis A IgM Ab Non-reactive (Nonreactive) 08/15/22 07:43 Hep Bs Antigen Non-reactive (Nonreactive) 08/15/22 07:43 Hep B Core IgM Ab Non-reactive (Nonreactive) 08/15/22 07:43 Hepatitis C Antibody Non-reactive (Nonreactive) 08/15/22 07:43 Vitals Last Vital Signs Temp 98.0 F 08/16/22 07:04 Pulse 84 08/16/22 07:04 Resp 15 08/16/22 07:04 BP 117/68 08/16/22 07:04 Pulse Ox 97 08/16/22 07:04 O2 Del Method 08/16/22 04:00 O2 Flow Rate 1 08/14/22 19:30 Discharge Plan Discharge Patient Disposition: Home Condition: Stable Prescriptions: New montelukast 10 mg Tablet 10 mg PO QPM Qty: 30 0RF prednisone 20 mg Tablet 40 mg PO DAILY Qty: 4 0RF Continued diphenhydramine HCl [Benadryl Allergy] 25 mg tablet 25 mg PO DAILY PRN (Reason: Allergy Symptoms) albuterol sulfate [ProAir HFA] 90 mcg/actuation HFA aerosol inhaler 2 inh inhalation Q6H PRN (Reason: shortness of breath or wheezing) Qty: 8.5 2RF fluticasone propion-salmeterol [Advair Diskus] 100-50 mcg/dose blister with device 1 inh inhalation Q12H Qty: 60 2RF Rx Instructions: rinse mouth after each use ipratropium-albuterol 0.5 mg-3 mg(2.5 mg base)/3 mL solution for nebulization 3 ml inhalation Q6H PRN (Reason: shortness of breath or wheezing) Qty: 180 2RF Trelegy Ellipta 200-62.5-25 mcg blister with device 1 inh inhalation DAILY Qty: 60 11RF Trulicity 0.75 mg/0.5 mL pen injector 0.75 mg SUBCUT .weekly Qty: 2 2RF Farxiga 10 mg tablet 10 mg PO QAM Qty: 30 2RF clopidogrel [Plavix] 75 mg tablet 75 mg PO DAILY Qty: 30 2RF cetirizine 10 mg tablet 10 mg PO QAM Qty: 90 0RF Eliquis 5 mg tablet 5 mg PO BID Qty: 60 2RF nitroglycerin 0.4 mg tablet, sublingual 0.4 mg SUBLINGUAL Q5M PRN (Reason: chest pain) Qty: 25 6RF Rx Instructions: until response; do not exceed 3 doses per episode Tagamet 200 mg Tablet 200 mg PO BID Rx Instructions: administer with meals Changed metoprolol succinate 100 mg tablet extended release 24 hr 50 mg PO BID Qty: 180 3RF Discontinued lisinopril 20 mg tablet 20 mg PO BID Qty: 60 2RF peg 3350-electrolytes [Golytely] 236-22.74-6.74 -5.86 gram recon soln 240 ml PO Q10M PRN (Reason: colon prep) Qty: 4000 0RF Rx Instructions: until fecal effluent is clear Discharge Orders: Discharge Order (Routine); Ordered 08/16/22 Ordered By: Holland Hall Referrals: Brian Mary FNP-C [Primary Care Provider] - 4-7 days Shivani Matute MD [Physician] - 1 month (Schedule with Anai Chin) Discharge Diet: Diabetic Discharge Activity: Increase activity as tolerated Patient Instructions: Angiogram (DC), GI Discharge Instructions, Opioid Safety Activity Restrictions/Additional Instructions: Take all medicine as prescribed. Stop smoking Return for any concerns Follow-up with your primary care provider in 4 to 7 days, Anai Chin with Dr. Matute in 1 month Patient's Health Concerns: Cardiac arrest, likely resp driven COPD Assessment: Resolved Plan of Treatment: Treat COPD exac currently, close follow up Discharge Attestations Time Spent in Discharge Care*: greater than 30 min Status at Discharge: Cognitive status at discharge: cognitively intact , Behavioral status at discharge: cooperative , Quality Metrics Clinical Quality Measures [ No reported AMI, CVA or VTE this stay] Coding Level of Care Code Acute Chg FW DC note Diagnoses NSTEMI (non-ST elevated myocardial infarction) I21.4 Cardiac arrest I46.9 COPD (chronic obstructive pulmonary disease) J44.9
[2022-08-16] MEDS: budesonide 0.5 mg/2 mL Neb INHALATION (08:34)
[2022-08-16] MEDS: ipratropium-albuterol 3 mL Neb INHALATION (08:34)
[2022-08-16] MEDS: metoprolol tartrate 25 mg Tablet 50 MG PO (08:49)
[2022-08-16] MEDS: predniSONE 20 mg Tablet 40 MG PO (08:50)
[2022-08-16] MEDS: loratadine 10 mg Tablet PO (08:50)
[2022-08-16] MEDS: apixaban 5 mg Tablet PO (08:50)
[2022-08-16] MEDS: clopidogrel 75 mg Tablet PO (08:50)
[2022-08-16] MEDS: LORazepam 0.5 mg Tablet 0.25 MG PO (08:59)
--- NOTE | 2022-08-16 10:15 | PM.PN ---
Subjective Subjective: She feels well overall. C/o MSKL chest pain; No events on telemetry s/p LHC via right radial. 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 Medications: Reviewed: Yes Vitals/I&O/Wt Last Vital Signs Temp 98.0 F 08/16/22 07:04 Pulse 87 08/16/22 08:40 Resp 16 08/16/22 08:35 BP 117/68 08/16/22 07:04 Pulse Ox 96 08/16/22 08:35 O2 Del Method 08/16/22 08:35 O2 Flow Rate 1 08/14/22 19:30 08/15/22 08/16/22 08/16/22 22:59 06:59 14:59 Intake Total 1475 / 2081.25 1170 / 3251.25 240 / 240 Balance 1475 / 1381.25 1170 / 2551.25 240 / 240 Weight last 48 hrs Weight 252 lb Weight 250 lb Weight 250 lb Physical Exam Narrative: Gen: laying in bed HEENT/Neck: No JVD, EOMI, No pallor RS: CTAB/L, No wheezes or rales; reproducible chest pain (post CPR) CVS: S1, S2 +, No murmur, rub or gallop Ext: No edema or cyanosis, Right wrist access site with mild bruising and swelling PA: soft, NTND, BS normoactive TECHNICAL SUPPORT 1 SOFTWARE ENGINEER: AAOx 3, No FND Data 08/16/22 02:25 08/16/22 02:25 A&P Assessment and plan (1) Cardiac arrest: -Hypoxia and cyanosis f/b arrest and brief CPR with significant respiratory secretions -mild hypomagnesemia on labs and some ectopy some resuscitation per documentation -rhythm strip unavailable. -Normal coronaries. (2) NSTEMI (non-ST elevated myocardial infarction): Type 2; 2/2 demand ischemia with hypoxia Normal coronaries on LHC -No PE on CTA chest Plan SVT with h/o ablations x 2: restart metoprolol and uptitrate based on BP DM-2 Obesity H/O DVT and PE (provoked post SVT ablation): Patient was on Eliquis and plavix at home. Defer management to her vascular Sx who she has an upcoming appointment with H/O left illiac vein thrombosis s/p stenting H/O non ischemic cardiomyopathy CHF with HFmrEF Chronic active smoker Thank you for allowing me to participate in patient's care. Please feel simone eto call with questions or concerns. Attestations Medical Necessity Statement*: stable to be discharged. Time Spent in Patient Care: 16 - 35 minutes Coding Level of Care Code Acute Fireworks Inspector for Britt Mcrae Diagnoses Cardiac arrest I46.9 NSTEMI (non-ST elevated myocardial infarction) I21.4
== END 2022-08-16 11:07 | disposition home or self-care (01) | DRG 281 ==
LOC: ICU 09:42 → CSU 08-15 15:56
PROVIDERS: Internal Medicine Cardiovascular Disease; Admitting Provider Internal Medicine; PCP Nurse Practitioner; Visit Provider Surgery
PROC: 0DB78ZX Excision of Stomach, Pylorus, Via Natural or Artificial Opening Endoscopic, Diagnostic (ICD-10-PCS; principal; 2022-08-14 08:30)
PROC: 0DB78ZX Excision of Stomach, Pylorus, Via Natural or Artificial Opening Endoscopic, Diagnostic (ICD-10-PCS; 2022-08-14 08:30)
PROC: 0DJD8ZZ Inspection of Lower Intestinal Tract, Via Natural or Artificial Opening Endoscopic (ICD-10-PCS; CPT 45330; 2022-08-14 08:30)
PROC: B2111ZZ Fluoroscopy of Multiple Coronary Arteries using Low Osmolar Contrast (ICD-10-PCS; principal; 2022-08-15 09:00)
DX: I97.711 Intraoperative cardiac arrest during other surgery (principal); I21.4 Non-ST elevation (NSTEMI) myocardial infarction; I42.0 Dilated cardiomyopathy; J44.1 Chronic obstructive pulmonary disease with (acute) exacerbation; I47.1 Supraventricular tachycardia; R13.10 Dysphagia, unspecified; Z88.5 Allergy status to narcotic agent; Z88.8 Allergy status to other drugs, medicaments and biological substances; Z86.711 Personal history of pulmonary embolism; F41.8 Other specified anxiety disorders; Z86.718 Personal history of other venous thrombosis and embolism; F17.210 Nicotine dependence, cigarettes, uncomplicated; Z12.11 Encounter for screening for malignant neoplasm of colon; Z79.01 Long term (current) use of anticoagulants; Z79.02 Long term (current) use of antithrombotics/antiplatelets; Z79.51 Long term (current) use of inhaled steroids; E66.9 Obesity, unspecified; Z68.35 Body mass index [BMI] 35.0-35.9, adult; E11.65 Type 2 diabetes mellitus with hyperglycemia
CPT/HCPCS: 36415; 36416; 36600; 43239; 45330; 71045; 71275; 80051; 80053; 80074; 82330; 82805; 82962; 83735; 84484; 85025; 85378; 88305; 88342; 92523; 92526; 92610; 93005; 93306; 93454; 93970; 94640; 96372; 99152; 99153; C1769; C1887; C1894; J0171; J0330; J1200; J1644; J1650; J1815; J2060; J2250; J2704; J3010; J3475; J3490; J7030; J7050; J7512; J7626; Q9967